=== PATIENT | female | born 1980 | race Caucasian/White ===

== ENCOUNTER → 2017-12-23 12:52 | Outpatient (CLI) | payer MEDICARE, MEDICAID, SELFPAY ==
--- NOTE | 2017-12-23 13:00 | RAD_ITS ---
STUDY: SWALLOWING STUDY REASON FOR EXAM: Female, 36 years old. Dysphagia. Anxiety. TECHNIQUE: The examination was performed with Speech Pathology in attendance. Under fluoroscopic observation, the patient ingested thin barium, thick barium, barium pudding, and barium coated cracker. FLUOROSCOPY TIME: 1:39 minutes/seconds. 1555 spot images. RADIOLOGIST INVOLVEMENT: Radiologist was present and providing direct supervision. COMPARISON: None. FINDINGS: The following was observed during swallowing of the various mixtures of barium: Thin Barium: There was no evidence of aspiration or laryngeal penetration. Barium Pudding: There was no evidence of aspiration or laryngeal penetration. Barium Coated Cracker: There was no evidence of aspiration or laryngeal penetration. RAD/Swallowing Function w/Video IMPRESSION: Normal tailored barium swallow study. No evidence of increased risk for aspiration. The swallow study findings were discussed with the patient by the speech pathologist at the conclusion of the examination. Please see speech pathology report for more information and recommendations. Electronically Signed: Haim Virgen MD at 14:26 EDT Tel [phone], Service support ,
--- NOTE | 2017-12-23 13:30 | SP.MBSS_ITS ---
PRIMARY / SECONDARY DIAGNOSIS: dysphagia (R13.10) REFERRING PHYSICIAN: Mamadou Cho NP CURRENT DIET: regular-soft textures, thin liquids DENTITION: WFL MENTAL STATUS: impaired RESPIRATORY STATUS: O2 via room air PREVIOUS MODIFIED BARIUM SWALLOW STUDY: yes Results unavailable at time of assessment; completion per caregiver report. REASON FOR REFERRAL: Patient is a 36 year old female referred for a modified barium swallow (MBS) study to objectively assess the Patients oropharyngeal swallow function under fluoroscopy secondary to concerns for potential aspiration associated with the diagnosis of cerebral palsy in addition to history of gastroesophageal reflux disease. Patient accompanied by her caregiver, reports no issues with PO intake , Patients medical / long term team raising concern for aspiration potential with consideration for prior workup. MEDICAL HISTORY: No past medical history provided in EMR; cerebral palsy, intellectual disability, sinus allergies, gastroesophageal reflux disease - per caregiver report STUDY FINDINGS: Patient participated in a Modified Barium Swallow (MBS) study on 12/23/2017. Dr. Virgen was the radiologist present for this evaluation. This study was recorded in the lateral view and images were sent to PACs for storage. The following consistencies were presented to this patient for analysis of oropharyngeal swallow function: thin liquids, pudding, and a regular textured, Abby Doone cookie. Results of the MBS are as follows: PENETRATION / ASPIRATION SCALE (RICE): 1 = does not enter airway 2 = enters airway/above vocal folds/ejected 3 = enters airway/above vocal folds/not ejected 4 = enters airway/contacts vocal folds/ejected 5 = enters airway/contacts vocal folds/not ejected 6 = enters airway/below vocal folds/ejected 7 = enters airway/below vocal folds/not ejected despite effort 8 = enters airway/below vocal folds/no effort PENETRATION / ASPIRATION SCALE (SCORE): Thin liquid - 5 mL tsp.: 1 Thin liquids via cup (single sip): 1 Thin liquids via cup (single sip): 1 Thin liquids via cup (single sip): 1 Thin liquids via straw (sequential swallows): 1 Thin liquids via straw (single sip): 1 Pudding via spoon: 1 Regular textured cookie: 1 Thin liquids via straw (single sip): 1 Thin liquids via straw (single sip): 1 Thin liquids via straw (chin tuck): 1 * multiple images distorted due to body habitus and frequent movement IMPRESSION: DIAGNOSIS: mild to moderate oropharyngeal dysphagia (R13.12) ORAL PHASE CHARACTERIZED BY: LABIAL SEAL: no labial escape TONGUE CONTROL DURING BOLUS MANIPULATION: intermittent escape to lateral buccal cavity/floor of mouth BOLUS PREPARATION / MASTICATION: timely and efficient chewing and mashing BOLUS TRANSPORT / LINGUAL MOTION: repetitive/disorganized tongue motion with delayed initiation of tongue motion lasting between 2-15 seconds prior to swallow onset ORAL RESIDUE: trace residue lining oral structures PHARYNGEAL PHASE CHARACTERIZED BY: INITIATION OF PHARYNGEAL SWALLOW: bolus head fluctuating between the pyriforms and posterior laryngeal surface of epiglottis at first hyoid excursion SOFT PALATE ELEVATION: no bolus between soft palate and pharyngeal wall LARYNGEAL ELEVATION: complete superior movement of thyroid cartilage with complete approximation of arytenoids cartilage to epiglottic petiole ANTERIOR HYOID EXCURSION: complete anterior movement EPIGLOTTIC MOVEMENT: complete epiglottic inversion LARYNGEAL VESTIBULE CLOSURE AT HEIGHT OF SWALLOW: complete laryngeal vestibule closure with no air/contrast in laryngeal vestibule PHARYNGEAL STRIPPING WAVE: pharyngeal stripping wave present / complete PHARYNGOESOPHAGEAL SEGMENT OPENING: complete distension and complete duration with no obstruction of flow TONGUE BASE RETRACTION: no contrast between tongue base and posterior pharyngeal wall PHARYNGEAL RESIDUE: trace residue within or on pharyngeal structures ESOPHAGEAL PHASE CHARACTERIZED BY: ESOPHAGEAL BOLUS CLEARANCE IN THE UPRIGHT POSITION: mild esophageal retention in lower portions of esophagus EFFECTS OF TREATMENT STRATEGIES ATTEMPTED: Chin tuck posture = ineffective Reduced bolus size = effective DIET TEXTURE RECOMMENDATIONS: Will recommend a regular-soft textured, thin liquid diet. COMPENSATORY STRATEGIES RECOMMENDED: Supervision, cut solids into quarter sized / bite sized pieces, reduced bolus volume, seated upright at 90 degrees during PO intake, remain upright for 30-60 minutes post meal (GERD precaution) INTERPRETATION OF RESULTS: Patient presents with mild to moderate oropharyngeal dysphagia (R13.12) likely associated with the diagnosis of cerebral palsy (per caregiver report). 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 Pharyngeal phase primarily marked by suboptimal bolus location upon swallow onset; otherwise within functional limits. All deficits ameliorated with bolus volume adjustments. RECOMMENDATIONS: Patient able to comprehend and express recommended intake precautions detailed above with sufficient detail to suggest high likelihood of compliance. Provided brief overview of signs and symptoms of aspiration, with recommendations for the Patient to further discuss symptoms with PCP. No further skilled speech- language services warranted at this time targeting dysphagia. ADDITIONAL COMMENTS/RECOMMENDATIONS: Results and recommendations were discussed with the Patient immediately following MBS completion, with the Patient verbalizing understanding and agreement with all recommendations and education provided. IMAGE COUNT: 1555 G-CODES: SWALLOWING [id number] Current Status: CI SWALLOWING G8997 Goal Status: CI SWALLOWING G8998 Discharge Status: CI
== END ==
PROVIDERS: Family Provider Internal Medicine; PCP Internal Medicine; Visit Provider Clinical Nurse Specialist
DX: Z00.00 Encounter for general adult medical examination without abnormal findings (principal); K21.9 Gastro-esophageal reflux disease without esophagitis; F41.9 Anxiety disorder, unspecified; F79 Unspecified intellectual disabilities; E88.81 Metabolic syndrome and other insulin resistance; E78.1 Pure hyperglyceridemia; Z23 Encounter for immunization
CPT/HCPCS: 74230; 92611; G8996; G8997; G8998

== ENCOUNTER 2019-06-03 11:25 | Emergency (ER) | payer MEDICARE, MEDICAID, SELFPAY ==
[2019-06-03 11:26] VITALS: BP 143/101; PULSE 106; RESP 17; TEMP 36.1; O2SAT 98; BMI 35.2
--- NOTE | 2019-06-03 12:12 | ED.VIS.GEN ---
History of Present Illness Chief Complaint: Rash Narrative: Patient presenting for evaluation secondary to a rash. Patient's caregiver states that over the course of the last day or so she has noticed that the patient has broken out in a rash on her legs and arms bilaterally. The patient is MRDD, is not able to provide any history, and is not able to tell me if this is itchy or painful. Caregiver states that she does not believe that this is painful. She denies any new exposures that potentially could have caused this. Review of systems otherwise negative through caregiver. Past Medical History - Allergies and Home Meds Allergies/Adverse Reactions: Allergies bee venom protein (honey bee) Allergy (Verified 06/03/19 11:25) Unknown Primary Care Physician: Maria De Jesus Waldrop MD [Primary Care Provider] - Past Medical History: - - MRDD Lives: - - Caregiver Smoking Status: Never smoker Review of Systems All systems negative except as indicated General: Denies: Fever Skin: Reports: Rash Physical Exam Vital Signs/Narrative: Vital Signs Temp Pulse Resp BP Pulse Ox 06/03/19 11:26 96.9 F L 106 H 17 143/101 H 98 General: Well nourished, Well developed, No Acute Distress Head: Normocephalic, Atraumatic Eyes: Perrl, EOMI ENT: Moist mucous membranes, - - No evidence of lip or tongue swelling, clear patent oropharynx Neck: Supple, Nontender Cardiovascular: Regular rate, Regular rhythm, No murmurs Respiratory: No distress, CTA bilaterally, Chest nontender Abdomen: Soft, Nontender, Nondistended, Normal bowel sounds Extremities: Nontender Skin: - - Evidence of an urticarial rash on the patient's arms and inner thighs bilaterally Neurological: Alert Diagnostic/Tx/Re-eval - Medical Decision Making Patient presented secondary to a rash. Physical exam seems consistent with urticaria. Patient was given a dose of Decadron in the emergency department, caregiver was recommended treatment with cortisone cream. Patient was discharged. ED Disposition - Plan for ED Patient: Disposition: Home or Assisted Living Diagnosis: Urticaria Instructions: Hives Referrals: Maria De Jesus Waldrop MD [Primary Care Provider] - 3-5 Days if not improving
[2019-06-03] MEDS: dexAMETHasone 4 MG Tablet 8 MG PO (12:19)
[2019-06-03 12:31] VITALS: RESP 18
== END 2019-06-03 12:31 | disposition home or self-care (01) ==
LOC: ED 12:28
PROVIDERS: Emergency Provider Emergency Medicine; Family Provider Internal Medicine; PCP Internal Medicine
DX: L50.9 Urticaria, unspecified (principal)
CPT/HCPCS: 99283

== ENCOUNTER 2022-09-17 15:56 | Emergency (ER) | payer MEDICARE, MEDICAID, SELFPAY ==
[2022-09-17 15:57] VITALS: BP 129/92; PULSE 123; RESP 16; TEMP 37.7; O2SAT 96; BMI 28.2
--- NOTE | 2022-09-17 16:37 | EX.ED.DYSGE1 ---
HPI <GAYATHRI Reed - Last Filed: 09/17/22 18:09> History of Present Illness Chief Complaint: Fever Narrative Narrative: Patient presents today with her caregiver due to cold-like symptoms that started yesterday. Patient has a developmental disability and is unable to provide me any information. Patient's caregiver states that yesterday she threw up one time but has been eating and drinking fine otherwise. She states that patient has also had nasal congestion, a cough, and developed a rash on her upper back. Today when patient was using the bathroom she became dizzy upon standing up prompting her caregiver to bring her in. [facility] <GAYATHRI Reed - Last Filed: 09/17/22 18:09> [facility] Medical History (Updated 09/17/22 @ 17:45 by GAYATHRI Reed) Cerebral palsy Home Medications escitalopram oxalate 20 mg tablet 20 mg PO DAILY 06/03/19 [History Last Taken Unknown] levocetirizine 5 mg tablet 5 mg PO DAILY 06/03/19 [History Last Taken Unknown] ranitidine HCl 150 mg tablet 150 mg PO DAILY 06/03/19 [History Last Taken Unknown] Allergy/AdvReac Type Severity Reaction Status Date / Time bee venom protein (honey bee) Allergy Unknown Verified 09/17/22 15:57 Social History Smoking Status: Never smoker ROS <GAYATHRI Reed - Last Filed: 09/17/22 18:09> ROS ED Review of Systems ROS Unobtainable: due to mental condition Constitutional Constitutional ED: Denies chills, fever(s) or sweats Eyes Eyes: Denies blurry vision or change in vision ENT ENT ED: Reports nasal congestion Cardiovascular Cardiovascular: Denies chest pain Respiratory/Chest Respiratory/Chest: Reports cough; Denies dyspnea, tachypnea or wheezing Gastrointestinal Gastrointestinal: Reports nausea and vomiting; Denies abdominal pain or diarrhea Genitourinary Genitourinary ED: Denies dysuria Musculoskeletal Musculoskeletal: Denies arthralgias or myalgias Integumentary Reports rash; Denies abscess or Abrasions Neurologic Neurologic: Reports weakness; Denies headache(s) Psychiatric Psychiatric: Denies anxiety or depression EXAM <GAYATHRI Reed - Last Filed: 09/17/22 18:09> Physical Exam Const Vital Signs: 09/17/22 15:57 09/17/22 16:47 09/17/22 17:28 Temperature 99.9 F H 99.9 F H Temperature Source Temporal Temporal Pulse Rate 123 H 123 H Respiratory Rate 16 16 Respiratory Effort Normal Non-Labored Blood Pressure 129/92 H 129/92 H Blood Pressure Mean 104 104 Pulse Ox 96 96 Oxygen Delivery Method Room Air Room Air 09/17/22 17:34 09/17/22 17:51 Temperature Temperature Source Pulse Rate 111 H Respiratory Rate 16 18 Respiratory Effort Blood Pressure Blood Pressure Mean Pulse Ox 97 Oxygen Delivery Method Positive well nourished and well developed General Appearance ED: well developed and NAD HEENT Reports moist mucous membranes Negative for trauma or tenderness Eyes PERRL and EOMs intact bilaterally Neck no lymphadenopathy and supple Chest Wall inspection of chest normal and palpation of chest normal Resp normal respiratory effort and clear to auscultation bilaterally Cardio regular rate, regular rhythm and no murmurs GI normal to inspection, nondistended, normoactive bowel sounds, non-tender and no masses Palpation: soft Back/Spine Cervical Spine: Negative for cervical spine tenderness Thoracic Spine / Upper Back: Negative for thoracic spinal tenderness Lumbar Spine / Lower Back: Negative for lumbar spinal tenderness Extremity normal to inspection General Extremety ED: Negative for edema General Extremity: Negative for edema Neuro CN's II-XII intact bilaterally and no sensory deficits noted Sensorium / Orientation: alert Motor Exam: strength 5/5 throughout Psych mental status grossly normal Skin no wounds and skin turgor normal Skin Narrative: Patient has scattered papules to her upper back. Lesions: No lesion noted <Dr. Gibran Wolf MD - Last Filed: 09/17/22 23:24> Physical Exam Const Vital Signs: 09/17/22 15:57 09/17/22 16:47 09/17/22 17:28 Temperature 99.9 F H 99.9 F H Temperature Source Temporal Temporal Pulse Rate 123 H 123 H Respiratory Rate 16 16 Respiratory Effort Normal Non-Labored Blood Pressure 129/92 H 129/92 H Blood Pressure Mean 104 104 Pulse Ox 96 96 Oxygen Delivery Method Room Air Room Air 09/17/22 17:34 09/17/22 17:51 Temperature Temperature Source Pulse Rate 111 H Respiratory Rate 16 18 Respiratory Effort Blood Pressure Blood Pressure Mean Pulse Ox 97 Oxygen Delivery Method MDM <GAYATHRI Reed - Last Filed: 09/17/22 18:09> MDM MDM Narrative Medical decision making narrative: Patient tested positive for flu A. She was given Zofran and 2 L of fluid. Patient is in no acute distress and is nontoxic-appearing. I am comfortable with patient discharging home. Patient and her caregiver are comfortable with plan. Caregiver stated they did not need a prescription for any nausea control going home. I educated caregiver and patient on supportive care measures. She has been given return instructions. Lab Data Attestation: I reviewed the patient's lab results. Lab results narrative: Decreased white blood cell count. Elevated monocytes. BMP unremarkable. Labs: Laboratory Results - last 24 hr 09/17/22 09/17/22 16:44 16:44 WBC 3.8 L RBC 4.38 Hgb 12.7 Hct 38.6 MCV 88.1 MCH 29.0 MCHC 32.9 RDW Std Deviation 41.6 RDW Coeff of Jamie 12.9 Plt Count 224 MPV 8.3 Immature Gran % (Auto) 0.300 Neut % (Auto) 62.9 Lymph % (Auto) 21.3 [place] % (Auto) 14.7 H Eos % (Auto) 0.3 Baso % (Auto) 0.5 Absolute Neuts (auto) 2.4 Absolute Lymphs (auto) 0.81 L Nucleated RBC % 0 Sodium 137 Potassium 3.4 L Chloride 106 Carbon Dioxide 25.0 Anion Gap 6 BUN 15 Creatinine 0.93 Estim Creat Clear Calc 75.40 Est GFR (MDRD) Af Amer 84 Est GFR (MDRD) Non-Af 70 BUN/Creatinine Ratio 16.1 Glucose 150 H Calcium 8.7 Radiography Diagnostic Testing: Clinical Impression(s) from Imaging Studies Chest X-Ray 09/17/22 16:54 IMPRESSION: Normal x-ray examination of the chest. Electronically Signed: Luis Carlos Jang MD at 17:13 EST , Chest x-ray reviewed and I agree with radiologist impressions. This has also been reviewed by attending ED physician. <Dr. Gibran Wolf MD - Last Filed: 09/17/22 23:24> [facility] Lab Data Labs: Laboratory Results - last 24 hr 09/17/22 09/17/22 16:44 16:44 WBC 3.8 L RBC 4.38 Hgb 12.7 Hct 38.6 MCV 88.1 MCH 29.0 MCHC 32.9 RDW Std Deviation 41.6 RDW Coeff of Jamie 12.9 Plt Count 224 MPV 8.3 Immature Gran % (Auto) 0.300 Neut % (Auto) 62.9 Lymph % (Auto) 21.3 [place] % (Auto) 14.7 H Eos % (Auto) 0.3 Baso % (Auto) 0.5 Absolute Neuts (auto) 2.4 Absolute Lymphs (auto) 0.81 L Nucleated RBC % 0 Sodium 137 Potassium 3.4 L Chloride 106 Carbon Dioxide 25.0 Anion Gap 6 BUN 15 Creatinine 0.93 Estim Creat Clear Calc 75.40 Est GFR (MDRD) Af Amer 84 Est GFR (MDRD) Non-Af 70 BUN/Creatinine Ratio 16.1 Glucose 150 H Calcium 8.7 Radiography Diagnostic Testing: Clinical Impression(s) from Imaging Studies Chest X-Ray 09/17/22 16:54 IMPRESSION: Normal x-ray examination of the chest. Electronically Signed: Luis Carlos Jang MD at 17:13 EST , Treatment and Re-Evaluation Narrative: Because ofCornici-patient was seen by me, there has been upper respiratory symptoms, fever. She has developmental delay clear lungs but she has upper airway congestion. She will be worked up. She is found to have influenza A, she appears well and at home believe she meets criteria for treatment. Otherwise she appears well and she can be discharged Discharge Plan Triage Chief Complaint: Fever ED Midlevel Provider: Josette Echevarria ED Provider: Gibran Wolf Dx/Rx/DC Orders Clinical Impression: Influenza A Instructions: ED Influenza (Adult) Prescriptions: No Action ranitidine HCl 150 MG tablet 150 mg PO DAILY escitalopram oxalate 20 MG tablet 20 mg PO DAILY levocetirizine 5 MG tablet 5 mg PO DAILY Primary Care Provider: Maria De Jesus Waldrop Referrals: Maria De Jesus Waldrop MD [Primary Care Provider] - 1 Week if not improving Activity Restrictions/Additional Instructions: Stay well-hydrated and alternate between Tylenol and ibuprofen for fever control. Return if any worsening of symptoms. Disposition Disposition: Home, Self Care Discharge Date/Time: 09/17/22 17:52
[2022-09-17 16:47] VITALS: BP 129/92; PULSE 123; RESP 16; TEMP 37.7; O2SAT 96
[2022-09-17] MEDS: Ondansetron 4 MG/2 ML Vial IV (16:53)
[2022-09-17] MEDS: 0.9% Normal Saline 1,000 ML 999 ML IV (16:53)
--- NOTE | 2022-09-17 16:54 | RAD_ITS ---
STUDY: X-RAY CHEST REASON FOR EXAM: Female, 41 years old. illness TECHNIQUE: Single AP portable view of the chest. COMPARISON: None. FINDINGS: The lungs are clear and expanded. There is no demonstrated pleural abnormality. Normal size heart. Normal mediastinum and kimberli. Normal visualized pulmonary arteries. Normal visualized aortic arch and descending thoracic aorta. Normal visualized thoracic spine. Normal visualized ribs, clavicles, and shoulders. There is no demonstrated abnormality of the visualized soft tissue structures of the upper abdomen. RAD/Chest 1 View (Portable) IMPRESSION: Normal x-ray examination of the chest. Electronically Signed: Luis Carlos Jang MD at 17:13 EST ,
[2022-09-17 17:00] LABS: Absolute Lymphocyte Count 0.81 X10^3/uL (0.83-4.51); Absolute Neutrophil Count 2.4 X10^3/uL (2.0-7.7); Basophil# 0.02 X10^3/uL; Basophil% 0.5 % (0-1); Eosinophil# 0.01 X10^3/uL; Eosinophils% 0.3 % (0-5); Hematocrit 38.6 % (37-47); Hemoglobin 12.7 g/dL (12.0-15.0); Lymphocyte # 0.81 X10^3/ul (0.83-4.51); Lymphocyte % 21.3 % (19-41); Mean Corp Hgb Conc 32.9 g/dL (32-36); Mean Corpuscular Volume 88.1 fL (81-99); Mean Platelet Vol. 8.3 fl (6.2-12.0); Monocyte# 0.56 X10^3/uL; Monocyte% 14.7 % (0-10); NRBC Flagged by Analyzer 0 % (0-5); Neutrophil % 62.9 % (47-70); Platelet Count 224 K/mm3 (150-450); RBC Distribution Width CV 12.9 % (11.6-14.6); RBC Distribution Width SD 41.6 fl (35.1-43.9); Red Blood Count 4.38 M/mm3 (4.2-5.4); White Blood Count 3.8 K/mm3 (4.4-11.0)
[2022-09-17 17:34] VITALS: RESP 16
[2022-09-17 17:51] VITALS: PULSE 111; RESP 18; O2SAT 97
[2022-09-17 17:55] LABS: Anion Gap 6 (5-15); BUN 15 mg/dL (7-18); BUN/Creat Ratio 16.1 RATIO (10-20); Calcium,Total 8.7 mg/dL (8.5-10.1); Chloride 106 mmol/L (98-107); Creatinine, Serum 0.93 mg/dL (0.55-1.02); EST Glomerular Filtration Rate 70 mL/min (>60); Est Glom Filt Rate - Afr Amer 84 mL/min (>60); Glucose 150 mg/dL (74-106); Potassium 3.4 mmol/L (3.5-5.1); Sodium Level 137 mmol/L (136-145)
== END 2022-09-17 17:52 | disposition home or self-care (01) ==
PROVIDERS: Physician Assistant; Emergency Provider Emergency Medicine; PCP Internal Medicine; Visit Provider Emergency Medicine
DX: J10.1 Influenza due to other identified influenza virus with other respiratory manifestations (principal)
CPT/HCPCS: 71045; 80048; 85025; 87428; 96361; 96374; 99283; J7030; A4216; J2405

== ENCOUNTER 2023-02-25 14:02 | Emergency (ER) | payer MEDICARE, MEDICAID, SELFPAY ==
[2023-02-25 14:03] VITALS: BP 164/109; PULSE 110; RESP 20; TEMP 36.4; O2SAT 99
--- NOTE | 2023-02-25 14:17 | ED.VIS.FALL ---
HPI HPI - Fall History of Present Illness Chief Complaint: Fall [facility] Medical History (Updated 02/25/23 @ 15:[address] Ariel Martins, DO) Cerebral palsy Home Medications escitalopram oxalate 20 mg tablet 20 mg PO DAILY 06/03/19 [History Last Taken Unknown] levocetirizine 5 mg tablet 5 mg PO DAILY 06/03/19 [History Last Taken Unknown] ranitidine HCl 150 mg tablet 150 mg PO DAILY 06/03/19 [History Last Taken Unknown] Allergy/AdvReac Type Severity Reaction Status Date / Time bee venom protein (honey bee) Allergy Unknown Verified 02/25/23 14:05 Social History Smoking Status: Never smoker EXAM Physical Exam Const Vital Signs: 02/25/23 14:03 02/25/23 14:44 Temperature 97.6 F L Temperature Source Temporal Pulse Rate 110 H Respiratory Rate 20 H Respiratory Effort Normal Respiratory Depth Normal Respiratory Pattern Normal Blood Pressure 164/109 H Blood Pressure Mean 127 Pulse Ox 99 Oxygen Delivery Method Room Air Room Air MDM MDM MDM Narrative Medical decision making narrative: HISTORY OF PRESENT ILLNESS: 42-year-old female here after mechanical fall. The patient is nonverbal. History is provided by the patient's [employer] caregiver. She states patient mechanical fall from standing. No reported syncope. They do note head trauma but no loss of consciousness vomiting or abnormal behavior. They state the patient does not take blood thinners. REVIEW OF SYSTEMS: Pertinent positives: Epistaxis Pertinent negatives: Loss of consciousness PHYSICAL EXAM: Nursing triage notes reviewed, Vital signs reviewed Primary Survey Airway: Intact Breathing: Bilateral breath sounds Circulation: Palpable bilateral femorals, Palpable bilateral radial, Palpable bilateral DP and Palpable bilateral PT Disability / Spine precautions GCS Score: Eye Openin Verbal Response: 5 Motor Response: 6 Secondary Survey Constitutional: Please see MDM Head: Atraumatic, Midface stable, NO jaw malocclusion, No Cephalohematoma, and No Lacerations noted Eye: Pupils equal round and reactive to light, Extraocular muscles intact and No periorbital ecchymosis or stepoff, no evidence of entrapment ENT: Oropharynx clear, no lacerations, no hemotympanum, no raccoon eyes or mccarthy sign,, dried blood noted over the left nares, no active epistaxis Cervical spine / Neck: No cervical spine bony tenderness, crepitance, or stepoff deformity Trachea midline Lungs: Clear to auscultation, No asymmetric rise and No crepitus, no flail chest Cardiac: Regular rate and rhythm and No murmurs Abdomen: Soft, Nontender and No rebound Pelvis: Pelvis stable to compression : No evidence of genital injury Back: No midline bony tenderness to thoracic/lumbar/sacral spines Neuro: At baseline, intact strength and sensation in bilateral upper and lower extremities. 2+ patellar reflexes bilaterally. Extremities: NO gross Deformities Psych: Normal affect Nursing triage notes reviewed, Vital signs reviewed MEDICAL DECISION MAKING: Chief Complaint: Fall, head trauma External records reviewed: No blood thinners, no recent ED visits MDM Narrative: The patient was initially tachycardic, tachypneic hypertensive afebrile. Primary secondary trauma surveys concerning for acute intracranial, cervical spine injury. Given the patient being nonverbal and lack of definitive communication skills I did pursue a broader work-up than usual including CT scans of the head neck and face. CT scan showed no evidence of acute traumatic injury. Tertiary exam without new injuries. The patient ambulated well in the ED. She is appropriate discharge home. She was given concussion precautions and return precautions. Factors affecting care: Cerebral palsy, nonverbal Social determinants of health: Never smoker History obtained from others: The patient's caregiver Shared decision making: I will have a discussion with the patient and or visitors regarding risk/benefits of further testing or admission. They will be made aware of of the risk/benefits inherent in this decision they will be given the opportunity to voice understanding. Consults: None Radiography Diagnostic Testing: Clinical Impression(s) from Imaging Studies Brain CT 02/25/23 14:27 IMPRESSION: Mild degree of hydrocephalus. Electronically Signed: Haim Virgen MD at 15:09 EDT , Cervical Spine CT 02/25/23 14:27 IMPRESSION: Straightening of the normal cervical lordosis. Disc space narrowing and spondylosis at the C2-C3 level. Fusion at the C3-C4 disc space level and partial fusion at the C4-C5 level. Electronically Signed: Haim Virgen MD at 15:12 EDT , Facial/Sinus 02/25/23 14:27 IMPRESSION: Nondisplaced nasal bone fracture. Electronically Signed: Haim Virgen MD at 15:10 EDT , Discharge Plan Triage Chief Complaint: Fall ED Provider: Ariel Martins Dx/Rx/DC Orders Clinical Impression: Contusion of head, Contusion of neck, Epistaxis, Fracture of nasal bone Instructions: Bruises (Contusions), ED Facial Fracture Prescriptions: No Action ranitidine HCl 150 MG tablet 150 mg PO DAILY escitalopram oxalate 20 MG tablet 20 mg PO DAILY levocetirizine 5 MG tablet 5 mg PO DAILY Primary Care Provider: Maria De Jesus Waldrop Referrals: Maria De Jesus Waldrop MD [Primary Care Provider] - Activity Restrictions/Additional Instructions: Thank you for trusting us with your care today! Please take Tylenol (2 pills, 650 mg), ibuprofen (2 pills, 400 mg) every 6 hours as needed for pain and fever control. Please return to the emergency department if your symptoms change or worsen. Specifically if you notice loss of sensation, numbness, slurred speech. Please follow with your primary care physician for further outpatient evaluation and management. Disposition Disposition: Home, Self Care Discharge Date/Time: 02/25/23 15:55
--- NOTE | 2023-02-25 14:27 | CT_ITS ---
STUDY: CT BRAIN WITHOUT CONTRAST REASON FOR EXAM: Female, 42 years old. Fall, head trauma. Bloody nose. RADIATION DOSAGE (If Supplied By Facility): CTDIvol = ( 44.99 ) mGy, DLP = ( 1524.72 ) mGycm TECHNIQUE: Transaxial CT imaging of the brain was performed without administration of intravenous contrast material. Individualized dose optimization techniques were used for this CT. COMPARISON: No relevant priors. FINDINGS: Normal soft tissue structures. Normal calvarium. Mild degree of hydrocephalus. Normal white matter tracts of the cerebral hemispheres. Normal basal ganglia and thalami. Normal brainstem. Normal cerebellum. There is no intracranial hemorrhage. There are no findings of an acute ischemic infarction. Normal visualized paranasal sinuses. CT/Brain/Head without Contrast IMPRESSION: Mild degree of hydrocephalus. Electronically Signed: Haim Virgen MD at 15:09 EDT ,
--- NOTE | 2023-02-25 14:27 | CT_ITS ---
STUDY: CT FACIAL BONES WITHOUT CONTRAST REASON FOR EXAM: Female, 42 years old. Fall, facial trauma RADIATION DOSAGE (If Supplied By Facility): CTDIvol = ( 29.38 ) mGy, DLP = ( 554.8 ) mGycm TECHNIQUE: The patient was scanned in a multi detector CT scanner. Sagittal and coronal images were reconstructed. Individualized dose optimization techniques were used for this CT. COMPARISON: None. FINDINGS: Normal soft tissue structures. Normal orbital sanabria and orbital contents. Nondisplaced nasal bone fracture. Normal facial bones. There is no demonstrated fracture. Normal visualized paranasal sinuses. CT/Sinus/Facial Bone IMPRESSION: Nondisplaced nasal bone fracture. Electronically Signed: Haim Virgen MD at 15:10 EDT ,
--- NOTE | 2023-02-25 14:27 | CT_ITS ---
STUDY: CT CERVICAL SPINE WITHOUT CONTRAST REASON FOR EXAM: Female, 42 years old. Fall, neck pain RADIATION DOSAGE (If Supplied By Facility): CTDIvol = ( 26.88 ) mGy, DLP = ( 1003.58 ) mGycm TECHNIQUE: High resolution transaxial imaging was performed without contrast material. Sagittal and coronal images were reconstructed. Individualized dose optimization techniques were used for this CT. COMPARISON: None FINDINGS: Normal craniovertebral junction. Normal anterior atlantoaxial articulation. Normal odontoid process. There is straightening of the normal cervical lordosis. Normal vertebral bodies and posterior osseous elements. C2-3: Moderate degree of disc space narrowing and spondylosis. Mild degree of right neural foraminal stenosis. C3-4: Fusion at the C3-C4 disc space level. C4-5: Partial fusion at the C4-C5 level. C5-6: Normal endplates. Normal disc height and morphology. Normal central canal and intervertebral neuroforamina. C6-7: Normal endplates. Normal disc height and morphology. Normal central canal and intervertebral neuroforamina. C7-T1: Normal endplates. Normal disc height and morphology. Normal central canal and intervertebral neuroforamina. Normal visualized soft tissue structures. CT/Spine Cervical without Contras IMPRESSION: Straightening of the normal cervical lordosis. Disc space narrowing and spondylosis at the C2-C3 level. Fusion at the C3-C4 disc space level and partial fusion at the C4-C5 level. Electronically Signed: Haim Virgen MD at 15:12 EDT ,
[2023-02-25 15:55] VITALS: BMI 32.5
== END 2023-02-25 15:55 | disposition home or self-care (01) ==
PROVIDERS: Emergency Provider Emergency Medicine; PCP Internal Medicine; Visit Provider Emergency Medicine
DX: S00.93XA Contusion of unspecified part of head, initial encounter (principal); G80.9 Cerebral palsy, unspecified; S10.93XA Contusion of unspecified part of neck, initial encounter; S02.2XXA Fracture of nasal bones, initial encounter for closed fracture; R04.0 Epistaxis; W19.XXXA Unspecified fall, initial encounter
CPT/HCPCS: 70450; 70486; 72125; 99282

== ENCOUNTER → 2023-04-23 | Outpatient (CLI) | payer MEDICARE, MEDICAID, SELFPAY ==
--- NOTE | 2023-04-23 17:17 | SP.MBSS_ITS ---
Modified Barium Swallow Patient Information Study Date: 04/23/23 Study Time: 13:00 Direct Billable Minutes: 140 Total Minutes procedure & reportin Diagnosis: Cerebral Palsy (680.9), Dysphagia (R13.10). Referring Physician: Gabriella Rodriguez NP Reason for Referral: Objectively assess swallow function, risk for aspiration and to determine recommendations for LRD and compensatory strategies to improve safety of swallow.. Medical History: Patient is a 42yo F w/ relevant PMH re: cerebral palsy, intellectual disability, GERD here for modified barium swallow study. Patient is non-verbal and lives in a longterm. Caregiver present for study. Caregiver reports patient had several of her front teeth removed and noticed increased difficulty eating meals. She is currently on what was described as a soft and bite size diet d/t having several teeth removed. Caregiver reports pocketing of the food. Patient had modified barium swallow study done in December of 2017 w/ recommendations for regular-soft textured food and thin liquid diet w/ the following compensatory strategies re: supervision w/ PO intake, cut solids into quarter sized / bite size pieces, reduced bolus volume, seated upright at 90 degrees, remain upright for 30-60 minutes post meal (GERD PRECAUTIONS). Current Diet Ordered: Soft and Bite Size / Thin Liquids Dentition: Missing Teeth Mental Status: Impaired Respiratory Status: Oxygenating on Room Air Penetration-Aspiration Scale Penetration-Aspiration Scale: OBJECTIVE ASSESSMENT OF SWALLOW FUNCTION (QUANTITATIVE ? PER TRIAL): PENETRATION / ASPIRATION SCALE (RICE): 1 = does not enter airway 2 = enters airway/above vocal folds/ejected 3 = enters airway/above vocal folds/not ejected 4 = enters airway/contacts vocal folds/ejected 5 = enters airway/contacts vocal folds/not ejected 6 = enters airway/below vocal folds/ejected 7 = enters airway/below vocal folds/not ejected despite effort 8 = enters airway/below vocal folds/no effort VIDEOFLOROSCOPIC SCALE SCORE (RICE): Grade I = aspiration of material that has penetrated into the laryngeal vestibule, intact cough reflex Grade II = aspiration < 10 % of the bolus, intact cough reflex Grade III = aspiration of < 10 % of the bolus, reduced cough reflex or aspiration of > 10 % of the bolus, intact cough reflex Grade IV = aspiration of > 10 % of the bolus, reduced cough reflex Penetration-Aspiration Scale Score Thin Liquid via teaspoon: Result: 1= does not enter airway Thin Liquid via teaspoon Trial 2: Result: 1= does not enter airway Thin Liquid via sequential sips from cup: Result: 1= does not enter airway Pudding: Result: 1= does not enter airway Pears: Result: 1= does not enter airway Thin Liquid via sequential sips from cup Trial 2: Result: 1= does not enter airway Oral Phase Labial Seal: No Labial Escape Tongue Control During Bolus Hold: Escape to lateral buccal cavity/floor of mouth Bolus Preparation/Mastication: Disorganized chewing/mashing with solid pieces of bolus unchewed Bolus Transport/Lingual Motion: Repetitive/disorganized tongue motion Oral Residue: Trace residue lining oral structures Pharyngeal Phase Initiation of Pharyngeal Swallow: Bolus head at posterior laryngeal surgace of epiglottis Soft Palate Elevation: No bolus between soft palate and pharyngeal wall Laryngeal Elevation: Comp. Superior move thyroid cart w/comp. apprx arytenoid cart-epig pet Anterior Hyoid Excursion: Complete anterior movement Epiglottic Movement: Complete inversion Laryngeal Vestibule Closure at Height of Swallow: Complete; no air/contrast in laryngeal vestibule Pharyngeal Stripping Wave: Present - complete Pharyngoesophageal Segment Opening: Complete distension and complete duration; no obstruction of flow Tongue Base Retraction: No contrast between tongue base and posterior pharyngeal wall Pharyngeal Residue: Trace residue within or on pharyngeal structures Diagnosis/Impression Diagnosis: mild to moderate oropharyngeal dysphagia R13.12 Impression: Pt. presents w/ mild to moderate oropharyngeal dysphagia likely secondary to cerebral palsy dx. Oral phase primarily marked by... 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 - suboptimal bolus location upon swallow onset - no penetration/aspiration observed, however unable to definitely rule out d/t pt.'s body habitus Recommendations Diet: Mechanical Soft Textures and Thin Liquids Comment: Provided caregiver w/ materials for preparation of recommended diet re: IDDSI LEVEL 5 MINCED AND MOIST Compensatory Strategies: Small Bites, Small Sips, Sitting upright and Remain sitting upright for 30 minutes after PO intake Supervision: 1:1 Close Supervision Recommend Repeat Modified Barium Swallow: No Need for Skilled Speech Therapy Services: No Education Completed: 1. Described result of evaluation. and 4. Family/caregivers understand evaluation & agree w/ goals & tx plan. Status Active ST Patient: Active Contact Information [facility] Speech Therapy:: Kathia Norris M.A. CCC-PLANT CARE WORKER Speech-Language Pathologist [facility] [address] [place] [address] [email or web address] [phone]
== END | disposition home or self-care (01) ==
LOC: RAD 12:52
PROVIDERS: PCP Internal Medicine; Referring Provider Internal Medicine; Visit Provider Internal Medicine
DX: G80.9 Cerebral palsy, unspecified (principal); K08.9 Disorder of teeth and supporting structures, unspecified
CPT/HCPCS: 74230; 92611

== ENCOUNTER 2023-05-22 17:18 | Outpatient (RCR) | payer MEDICARE, MEDICAID, SELFPAY ==
--- NOTE | 2023-05-23 08:18 | HP.PTEVAL ---
Patient's Visit Information Visit Information Visit Information: RATNA RAY is a 42 year old F referred to Physical Therapy by Dr. Maria De Jesus Waldrop MD with a diagnosis of CP with need for gait belt training. Date of Evaluation: 05/22/23 Physical Therapist: Geovani Esteban DPT Visit Plan Frequency: 1x/Week Duration: 1 Week Plan: Tracey and her caregiver were trained in proper use of gait belt this date with walking and on stairs. Tracey is a bit impulsive and needs cues to focus on her gait. With use of gait belt she is much safer. Patient does not need and would have difficulty using an AD with her gait. Caregvier and patient both trained in gait belt safety and use. They were both trainined and will be DC from PT at this point in time. Subjective Subjective: Pt is here today for her initial evaluation with diagnosis of subsequent falls and infantile CP. Pt. [place] a jail and has had a few falls with in the last year with the last one being while she was at [facility]. Pt. was returning from rolling her ball and slipped and fell. She is non verbal but her lawn care professional is here. She reports that Tracey did end up braking her nose during this fall. She arrives wearing a gait belt with lawn care professional assisting. wire winding machine tender reports no major decline in her recent ability, but has been using the gait belt on her since for safety. No further falls have occurred. rn rehab reports patient tends to be fast with her walking and is usually looking around at other things while she was walking. they were hoping for instruction on proper gait belt usage for safety. Objective Objective: POSTURE: flexed posture in stance, wide KATRIN. PALPATION: No issues with palaption. NEURO: normal sensation, decreased ability to raise on heels and toes. ROM: Pt. has general tightness with her HS and mod loss throughout her lumbar spine. Pt. has decreased B knee flexion and lacking end ranged extension as well. MMT: PT. has 5/5 strength throughout BLEs, except 4/5 throughout her hips. GAIT: Pt. ambulates without AD. She is pretty impulsive with her movements but does follow directions. She has gait belt in place. She does have some lateral deviation, but is able to self correct with CGA with gait belt. No LOB Noted. STAIRS: Pt. was able to complete with 2 HR with CGA. We talked extensively on the use of a gait belt. How to don/doff, where to stand, how to aid in balance and use of ground and stairs. Her caregiver was able to complete and demonstrate back. Balance/Special Test Scores Lower Extremity Functional Score: 80 TUG Test Time Seconds: 16.1 30 Second Chair Rise Test Seconds: 14 Goals Goal 1:: STG: caregiver to be trained in proper use of gait belt and how to assist patient with gait and balance. Goal Time Frame: 1 Week Rehabilitation Potential Physical Therapy Diagnosis: Pt. has signs and symptoms consistent with some imbalance and need for external assistance with gait due to her CP. Pt. tends to be impulsive with her movements and gait and the use of a gait belt is warranted. Caregiver able to demonstrate back to PT this date with proper use. Rehabilitation Potential: Excellent Anticipated Interventions Patient/Client Instruction: Educate patient on: Condition, Plan of Care, Risk Factors and Benefits of Fitness Program For the Purpose of:: To improve self management, To prevent re-injury, To improve ability to perform tasks related to life management and To improve tolerance to ADL's Therapeutic Exercise to Include: Body mechanics, Postural training and Gait and locomotor training For the Purpose of:: To improve gait and locomotor functions, To improve health of tissue and To improve safety with gait Text: Thank you for the opportunity to evaluate your patient. For Medicare and Medicare HMO plans, please review the plan of care and approve it. It will need to be FAXED BACK to us at [phone] for Medicare purposes. For Medicare only, by signing this I certify the plan of care. Please let me know if there are questions or concerns regarding this plan of care. Physician Signature: Date:
== END 2023-05-22 19:00 | disposition home or self-care (01) ==
LOC: PT 17:18
PROVIDERS: PCP Internal Medicine; Referring Provider Internal Medicine; Visit Provider Internal Medicine
DX: R26.9 Unspecified abnormalities of gait and mobility (principal); F79 Unspecified intellectual disabilities; G80.9 Cerebral palsy, unspecified
CPT/HCPCS: 97161

== ENCOUNTER 2025-07-18 18:30 | Emergency (ER) | payer OTHER, MEDICARE, MEDICAID, SELFPAY ==
[2025-07-18 18:49] VITALS: BP 157/120; PULSE 108; RESP 16; TEMP 37.1; O2SAT 98; BMI 28.5
--- OUTSIDE RECORDS SUMMARY | 2025-07-18 19:56 | XMS RPT_ITS | CCD ---
Author Organization [facility] Care Team Providers Care Music Therapist Name Role Phone Benny Zheng Unavailable Unavailable PROVIDER, UNKNOWN Attending Unavailable PROVIDER, UNKNOWN Admitting Unavailable Romy Greer MD Primary Care Provider Romy Greer MD Primary Care Provider Romy Greer MD Primary Care Provider LAURIE CHAVEZ Attending Unavailable LAURIE CHAVEZ Admitting Unavailable Yvonne EQUIPMENT WORKER, Marycruz Referring Unavailable Yvonne EQUIPMENT WORKER, Marycruz Attending Unavailable Talampas, Romy D Primary Care Unavailable Talampas, Romy D Referring Unavailable Talampas, Romy D Attending Unavailable Talampas, Romy D Primary Care Unavailable Ariel Martins Attending Unavailable Talampas, Romy D Primary Care Unavailable Romy Greer MD Primary Care Provider Unavailable Primary Care Provider Unavailabl e Cho MANAGER OF DISTRIBUTION.LINE REPAIRER TOWER, Yoselin Unavailable Yvonne MANAGER OF DISTRIBUTION.ZONING ENGINEER, Marycruz Unavailable Yvonne MANAGER OF DISTRIBUTION.ZONING ENGINEER, Marycruz Unavailable Yvonne MANAGER OF DISTRIBUTION.ZONING ENGINEER, Marycruz Unavailable Cho MANAGER OF DISTRIBUTION.LINE REPAIRER TOWER, Yoselin Unavailable Cho MANAGER OF DISTRIBUTION.LINE REPAIRER TOWER, Yoselin Unavailable ZOEY ROMY D Referring Unavailable TALAMPAS, ROMY D Primary Care Unavailable MIKKI VELAZQUEZ Attending Unavailable TALAMPAS, ROMY D Primary Care Unavailable TALAMPAS, ROMY D Primary Care Unavailable VELAZQUEZ, MIKKI Referring Unavailable YVONNE, MARYCRUZ Attending Unavailable TALAMPAS, ROMY D Primary Care Unavailable Allergies Allergy Classification Reported Allergen(s) Allergy Type Date of Onset Reaction(s) Facility (3 sources) bee venom; Translations: [BEE VENOM] Propensity to adverse reactions to drug (disorder) 3 Anaphylaxis [facility] (16 sources) bee stings [Other] Propensity to adverse reactions 5 [facility] Work Phone: (16 sources) bee venom protein (honey bee); Translations: [BEE VENOM PROTEIN (HONEY BEE)] Allergy to substance 3 Other: See Comments [facility] (1 source) bee venom protein (honey bee) Drug allergy (disorder) 3 [facility] Rep[facility] Medications Current Medications Medication Drug Class(es) Dates Sig (Normalized) Sig (Original) acetaminophen 500 mg oral tablet (20 sources) Start: 12-15-2024 take 2 tablets by mouth every four hours as needed acetaminophen (TYLENOL EXTRA STRENGTH) 500 mg tablet Take 2 tablets by mouth every 4 hours as needed for pain. Do not exceed 4000mg in 24 hours 12/15/2024 Active Start: 10-29-2012 End: 12-15-2024 take 1 tablet by mouth every four hours as needed acetaminophen (TYLENOL EXTRA STRENGTH) 500 mg tablet Take 1 tablet by mouth every 4 hours as needed for Pain. 10/29/2012 12/15/2024 Discontinued (Adjust Sig - Block E-Cancel) acetaminophen (T ylenol) 325 MG capsule Take by mouth every 6 hours as needed for mild pain (1-3). 0 Active Comment on above: Take 1 tablet by mariann th every 4 hours as needed for Pain. acetaminophen 325 mg / HYDROcodone bitartrate 5 mg oral tablet (2 sources) Opioid Agonist Start: End: take 1 tablet by mouth every six hours as needed for pain HYDROcodone-acetamino phen ([place]) 5-325 MG tablet Take 1 tablet by mouth every 6 hours as needed for severe pain (7-10) for up to 5 days. 20 tablet 0 11/09/2022 11/14/2022 Active amoxicillin 875 mg oral tablet (2 sources) Penicillin-class Antibacterial Start: End: take 1 tablet by mouth twice daily amoxicillin (AMOXIL) 875 mg tablet Indications: Acute non-recurrent maxillary sinusitis Take 1 tablet by mouth twice daily for 10 days. 20 tablet 0 01/23/2023 02/02/2023 Active Comment on above: Take 1 tablet by [facility] twice daily for 10 days. cetirizine hydrochloride 5 mg oral tablet (2 sources) Histamine-1 Receptor Antagonist take 2 tablets by mouth once daily cetirizine (ZyrTEC) 5 MG tablet Take 10 mg by mouth Nightly. 0 Active cyclopentolate hydrochloride 10 mg/ml ophthalmic solution (1 source) Start: 023 End: cyclopentolate 1 % 1 Drop (CYCLOGYL) Diaper,Brief, Adult,Disposable (ADULT BRIEF - EXTRA LARGE) (20 sources) Start: Diaper,Brief, Adult,Disposable (ADULT BRIEF - EXTRA LARGE) 1 Units as needed. 96 Each 02/01/2022 Active Start: 02-01-2022 End: 02-01-2022 Diaper,Brief, Adult,Disposab le (ADULT BRIEF - EXTRA LARGE) 1 Units as needed. 96 Each 02/01/2022 02/01/2022 Discontinued Comment on above: 1 Units as needed. Diaper,Brief, Adult,Disposable (BRIEFS EXTRA LARGE) (20 sources) Start: Diaper,Brief, Adult,Disposable (BRIEFS EXTRA LARGE) 1 Units as needed. 96 Each 02/21/2022 Active Comment on above: 1 Units as needed. [id number] 0.3 ml EPINEPHrine 1 mg/ml auto-injector (20 sources) alpha-Adrenergic Agonist, beta-Adrenergic Agonist, Catecholamine Start: 021 End: EPINEPHrine (EPIPEN) 0.3 mg/0.3 mL auto-injector Indications: Bee sting allergy use as directed incase of bee sting, Inject 0.3 ml Intramuscularly 2 Each 1 06/16/2024 Active Comment on above: use as directed inca se of bee sting, Inject 0.3 ml Intramuscularly escitalopram 10 mg oral tablet (20 sources) Serotonin Reuptake Inhibitor Start: End: take 1 tablet by mouth once daily escitalopram oxalate (LEXAPRO) 10 mg tablet Take 1 tablet by mouth once daily. 30 tablet 06/16/2024 Active Start: 12-23-2023 take 1 tablet by mariann th once daily escitalopram oxalate (LEXAPRO) 20 mg tablet Take 1 tablet by mouth once daily. 30 tablet 11 12/23/2023 Active Start: 09-11-2021 End: 12-23-2023 take 1 tablet by mouth once daily escitalopram oxalate (LEXAPRO) 10 mg tablet Take 1 tablet by mouth once daily. 30 tablet 5 07/15/2023 12/23/2023 Discontinued Start: 06-03-2019 take 20 mg by mouth once daily Escitalopram Oxalate Active 20 MG PO DAILY June 03, 2019 12:00am Comment on above: Take 1 tablet by mariann th once daily. famotidine 40 mg oral tablet (20 sources) Histamine-2 Receptor Antagonist Start: 11-04-2023 End: 06-16-2024 take 1 tablet by mouth once daily at bedtime famotidine (PEPCID) 40 mg tablet Take 1 tablet by mouth daily at bedtime. Replaces ranitidine 30 tablet 11 06/16/2024 Active Start: 12-01-2021 End: 11-07-2022 take 1 tablet by mouth once daily at bedtime famotidine (PEPCID) 40 mg tablet Take 1 tablet by mouth daily at bedtime. Replaces ranitidine 30 tablet 11 11/07/2022 Active Comment on above: Take 1 tablet by mairann th daily at bedtime. Replaces ranitidine ibuprofen 600 mg oral tablet (20 sources) Nonsteroidal Anti-inflammatory Drug Start: 11-09-2022 End: 11-19-2022 take 1 tablet by mouth every six hours ibuprofen 600 MG tablet Take 1 tablet (600 mg) by mouth in the morning and 1 tablet (600 mg) at noon and 1 tablet (600 mg) in the evening and 1 tablet (600 mg) before bedtime. Do all this for 10 days. 40 tablet 0 11/09/2022 11/19/2022 Active take 1 tablet by mariann th every six hours as needed ibuprofen (MOTRIN) 400 mg tablet Indications: Dental infection Take 400 mg by mouth every 6 hours as needed. Active Comment on above: Take 400 mg by mouth every 6 hours as needed. levocetirizine dihydrochloride 5 mg oral tablet (20 sources) Histamine-1 Receptor Antagonist Start: 019 End: 01-20-2 025 take 1 tablet by mouth once daily levocetirizine 5 mg tablet TAKE 1 TABLET BY MOUTH ONCE DAILY. FOR ALLERGY SYMPTOMS 28 tablet 11 11/02/2024 Active Comment on above: TAKE 1 TABLET BY MARIANN ONCE DAILY. FOR ALLERGY SYMPTOMS mupirocin 0.02 mg/mg topical ointment (20 sources) RNA Synthetase Inhibitor Antibacterial Start: 024 mupirocin (BACTROBAN) 2 % ointment Indications: Rash and nonspecific skin eruption Apply 1 application to affected area two times a day. until rash clears and then discontinue. for facial rash 15 g 1 12/18/2023 Active Start: 04-28-2021 End: 12-05-2023 mupirocin (BACTROBAN) 2 % oi ntment Indications: Rash and nonspecific skin eruption Apply 1 application to affected area twice daily. until rash clears and then discontinue. for facial rash 15 g 1 04/28/2021 12/05/2023 Discontinued Comment on above: Apply 1 application to affected area twice daily. until rash clears and then discontinue. for facial rash Apply 1 application to affected area two times a day. until rash clears and then discontinue. for facial rash pseudoephedrine hydrochloride 30 mg oral tablet (20 sources) alpha-Adrenergic Agonist Start: 015 take 1 tablet by mouth every four hours as needed pseudoephedrine (SUDAFED) 30 mg tablet Indications: Acute sinusitis, recurrence not specified, unspecified location Take 1 tablet by mouth every 4 hours as needed for Cold/Allergy Symptoms. 30 tablet 0 05/12/2015 Active Comment on above: Take 1 tablet by [facility] every 4 hours as needed for Cold/Allergy Symptoms. raNITIdine 150 mg oral tablet (2 sources) Histamine-2 Receptor Antagonist Start: 019 take 150 mg by mouth once daily Ranitidine Hcl Active 150 MG PO DAILY June 03, 2019 12:00am Completed/Discontinued Medications Medication Drug Class(es) Dates Sig (Normalized) Sig (Original) ALPRAZolam 0.5 mg oral tablet (2 sources) Benzodiazepine Start: 11-09-2022 End: 11-09-2022 ALPRAZolam (Xanax) tablet 0.5 mg calcium chloride 0.0014 meq/ml / potassium chloride 0.004 meq/ml / sodium chloride 0.103 meq/ml / sodium lactate 0.028 meq/ml injectable solution (2 sources) Start: 11-09-2022 End: 11-09-2022 lactated Ringer's (LR) infusion 1 ml diphenhydrAMINE hydrochloride 50 mg/ml cartridge (2 sources) Histamine-1 Receptor Antagonist Start: 11-09-2022 End: 11-09-2022 diphenhydrAMINE (BENADryl) injection 12.5 mg fluconazole 150 mg oral tablet (9 sources) Azole Antifungal Start: 01-23-2023 End: 12-05-2023 fluconazole (DIFLUCAN) 150 mg tablet Indications: Antibiotic-induced yeast infection Take one tablet by mouth; wait 72 hours and take the second--as directed for yeast infection after antibiotic/ 2 tablet 0 01/23/2023 12/05/2023 Discontinued Comment on above: Take one tablet by m outh; wait 72 hours and take the second--as directed for yeast infection after antibiotic/ 1 ml HYDROmorphone hydrochloride 1 mg/ml cartridge (4 sources) Opioid Agonist Start: 11-09-2022 End: 11-09-2022 HYDROmorphone (Dilaudid) injection 0.5 mg Start: 11-09-2022 End: 11-09-2022 HYDROmorphone (Dilaudid) inj ection 0.25 mg labetalol (Normodyne,Trandate) injection 5 mg (2 sources) Start: 11-09-2022 End: 11-09-2022 labetalol (Normodyne,Trandate) injection 5 mg 1 ml LORazepam 2 mg/ml injection (2 sources) Benzodiazepine Start: 11-09-2022 End: 11-09-2022 LORazepam (Ativan) injection 0.5 mg 1 ml meperidine hydrochloride 25 mg/ml cartridge (2 sources) Opioid Agonist Start: 11-09-2022 End: 11-09-2022 meperidine (Demerol) injection 12.5 mg mometasone furoate 0.05 mg/actuat metered dose nasal spray (15 sources) Corticosteroid Start: 01-23-2023 End: 06-16-2024 take 2 spray(s) by mouth once daily as needed, then take 2 spray(s) by mouth once daily as needed mometasone (NASONEX) 50 mcg/actuation nasal spray Use 2 Sprays in the nose once daily. Rinse mouth after use. After treating for acute allergies or infection, may use 2 sprays daily as needed 17 g 3 01/23/2023 06/16/2024 Discontinued Comment on above: Use 2 Sprays in the nose once daily. Rinse mouth after use. After treating for acute allergies or infection, may use 2 sprays daily as needed nystatin 100 unt/mg topical powder (15 sources) Polyene Antifungal Start: 03-05-2023 End: 12-15-2024 nystatin (MYCOSTATIN) powder Indications: Yeast dermatitis Apply 1 application to affected area three times daily as needed. 60 g 2 03/05/2023 12/15/2024 Discontinued Comment on above: Apply 1 application to affected area three times daily as needed. 2 ml ondansetron 2 mg/ml injection (2 sources) Serotonin-3 Receptor Antagonist Start: 11-09-2022 End: 11-09-2022 ondansetron (Zofran) injection 4 mg oxyCODONE (2 sources) Opioid Agonist Start: 11-09-2022 End: 11-09-2022 oxyCODONE (Roxicodone) immediate release tablet 5 mg 5 ml sodium chloride 9 mg/ml injection (20 sources) Start: 11-09-2022 End: 11-09-2022 sodium chloride 0.9 % infusion Start: 11-09-2022 End: 11-09-2022 sodium chloride 0.9% (NS) fl ush 3 mL Start: 10-05-2018 End: 06-16-2024 sodium chloride (AYR, OCEAN) 0.65 % nasal spray Indications: Nasal congestion Use 1 [place] in the nose as needed. 1 Bottle 10/05/2018 06/16/2024 Discontinued Comment on above: Use 1 [place] in the n ose as needed. triamcinolone acetonide 1 mg/ml topical cream (17 sources) Corticosteroid Start: 06-05-2019 End: 12-05-2023 triamcinolone acetonide (KENALOG) 0.1 % cream Indications: Rash and nonspecific skin eruption Apply 1 application to affected area three times daily. Apply sparingly to area for rash/itching. 80 g 1 06/05/2019 12/05/2023 Discontinued Comment on above: Apply 1 application to affected area three times daily. Apply sparingly to area for rash/itching. Problems Active Problems Problem Classification Problem Date Documented Da te Episodic/Chronic Allergic reactions (4 sources) Allergy to bee venom; Translations: [Bee allergy status] Episodic Anxiety disorders (20 sources) Anxiety; Translations: [Anxiety disorder, unspecified] Onset: 6 11-29-2015 Chronic Developmental disorders (20 sources) Intellectual disability; Translations: [Unspecified intellectual disabilities] 01-14-2019 Chronic Diabetes mellitus without complication (2 sources) Impaired fasting glycemia; Translations: [Impaired fasting glucose] 12-18-2023 Episodic Disorders of lipid metabolism (5 sources) Dyslipidemia; Translations: [Hyperlipidemia, unspecified] Onset: 5 06-11-2023 Chronic E Codes: Fall (1 source) Fall; Translations: [Unspecified fall, subsequent encounter] Episodic Esophageal disorders (20 sources) Gastroesophageal reflux disease; Translations: [Gastro-esophageal reflux disease without esophagitis] Onset: 7 12-10-2006 Chronic Immunizations and screening for infectious disease (3 sources) Vaccination needed; Translations: [Encounter for immunization] Episodic Influenza (2 sources) Influenza due to Influenza A virus; Translations: [Influenza due to other identified influenza virus with other respiratory manifestations] 09-25-2022 Episodic Mycoses (1 source) Opportunistic mycosis; Translations: [Candidiasis, unspecified] Episodic Nonmalignant breast conditions (2 sources) Heterogeneously dense breast composition; Translations: [Heterogeneously dense tissue of both breasts on mammography] 12-05-2023 Episodic Other aftercare (1 source) Long-term current use of drug therapy; Translations: [Other fpc (current) drug therapy] 06-16-2024 Episodic Other aftercare (1 source) Other fpc (current) drug therapy; Translations: [Encounter for long-term current use of medication] Onset: 5 Episodic Other eye disorders (17 sources) Bilateral optic atrophy of eyes; 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, bilateral] Onset: 3 05-13-2023 Chronic Other eye disorders (15 sources) Nystagmus; Translations: [Unspecified nystagmus] Onset: 3 05-13-2023 Chronic Other eye disorders (3 sources) Nystagmus present; Translations: [Unspecified nystagmus] Onset: 3 05-13-2023 Chronic Other gastrointestinal disorders (1 source) Swallowing problem; Translations: [Dysphagia, unspecified] 06-11-2023 Episodic Other gastrointestinal disorders (2 sources) Swallowing finding; Translations: [Dysphagia, unspecified] 12-18-2023 Episodic Other nervous system disorders (4 sources) Abnormal gait; Translations: [Unspecified abnormalities of gait and mobility] Episodic Other nutritional; endocrine; and metabolic disorders (20 sources) Metabolic syndrome X; Translations: [Metabolic syndrome] Onset: 9 07-05-2009 Chronic Other skin disorders (1 source) Eruption; Translations: [Rash and other nonspecific skin eruption] 12-18-2023 Episodic Other upper respiratory disease (20 sources) Allergic rhinitis; Translations: [Allergic rhinitis, unspecified] 11-29-2015 Chronic Other upper respiratory disease (2 sources) Bleeding from nose; Translations: [Epistaxis] 02-25-2023 Episodic Other upper respiratory infections (1 source) Acute maxillary sinusitis; Translations: [Acute maxillary sinusitis, unspecified] Episodic Paralysis (20 sources) Cerebral palsy; Translations: [Cerebral palsy, unspecified] Onset: 3 08-30-2015 Chronic Residual codes; unclassified (2 sources) Pain, unspecified; Translations: [Pain, unspecified] Onset: 3 Episodic Skull and face fractures (2 sources) Fractured nasal bones; Translations: [Fracture of nasal bones, initial encounter for closed fracture] 02-25-2023 Episodic Superficial injury; contusion (4 sources) Contusion of head; Translations: [Contusion of unspecified part of head, initial encounter] 02-25-2023 Episodic Unclassified (1 source) Unknown / UNK(Unknown) Onset: 9 Unclassified (1 source) Dysmetabolic syndrome; Translations: [Dysmetabolic syndrome] Onset: 9 Viral infection (1 source) Viral disease; Translations: [Viral infection, unspecified] Episodic Past or Other Problems Problem Classification Problem Date Documented Da te Episodic/Chronic Blindness and vision defects (20 sources) Bilateral myopia of eyes; Translations: [Myopia, bilateral] Onset: 05-13-2023 05-13-2023 Episodic Other screening for suspected conditions (not mental disorders or infectious disease) (13 sources) Patient encounter status; Translations: [Encounter for screening mammogram for malignant neoplasm of breast] Onset: 01-27-2025 01-17-2023 Episodic Other upper respiratory disease (1 source) Epistaxis; Translations: [Epistaxis] Onset: 03-01-2023 Episodic Residual codes; unclassified (2 sources) Pain; Translations: [Pain, unspecified] Episodic Unclassified (1 source) DENTAL CARIES/PERIODONTI TIS Onset: 12-18-2018 Unclassified (3 sources) Patient encounter status 12-29-2024 Results Test Name Value Interpretation Reference Range Facility CBC panel Auto (Bld)on 06-22 Erythrocyte distribution width (RBC) [Ratio] 12.9 % Normal 11.5-15.0 [facility] Comment on above: Order Comment: Antonieta flannery Type: BLOOD SPECIMEN Ordering Facility: [facility] Address: [address] [place] [address] Performed By: #### 5 8410-2 #### [facility] CLIA [id number] [address] [place] [address] [place] Hematocrit (Bld) [Volume fraction] 41.6 % Normal 36.0-46.0 [facility] Comment on above: Order Comment: Antonieta flannery Type: BLOOD SPECIMEN Ordering Facility: [facility] Address: [address] [place] [address] Performed By: #### 5 8410-2 #### [facility] CLIA [id number] [address] [place] [address] [place] Hemoglobin (Bld) [Mass/Vol] 13.5 g/dL Normal 11.5-15.5 [facility] Comment on above: Order Comment: Antonieta flannery Type: BLOOD SPECIMEN Ordering Facility: [facility] Address: [address] [place] [address] Performed By: #### 5 8410-2 #### [facility] CLIA [id number] [address] [id number] [address] [place] MCH (RBC) [Entitic mass] 29.2 pg Normal 26.0-34.0 [facility] Comment on above: Order Comment: Speci men Type: BLOOD SPECIMEN Ordering Facility: [facility] Address: [address] [place] [address] Performed By: #### 5 8410-2 #### [facility] CLIA [id number] [address] [place] [address] [place] MCHC (RBC) [Mass/Vol] 32.5 g/dL Normal 30.5-36.0 [facility] Comment on above: Order Comment: Speci men Type: BLOOD SPECIMEN Ordering Facility: [facility] Address: [address] [place] [address] Performed By: #### 5 8410-2 #### [facility] CLIA [id number] [address] [place] [address] [place] MCV (RBC) [Entitic vol] 90.0 fL Normal 80.0-100.0 [facility] Comment on above: Order Comment: Speci men Type: BLOOD SPECIMEN Ordering Facility: [facility] Address: [address] [place] [address] Performed By: #### 5 8410-2 #### [facility] CLIA [id number] [address] [place] [address] [place] Nucleated RBC (Bld) [#/Vol] 10*3/uL Normal <0.01 [facility] Comment on above: Order Comment: Speci men Type: BLOOD SPECIMEN Ordering Facility: [facility] Address: [address] [place] [address] Performed By: #### 5 8410-2 #### [facility] CLIA [id number] [address] [place] [address] [place] Platelet mean volume (Bld) [Entitic vol] 9.0 fL Normal 9.0-12.7 [facility] Comment on above: Order Comment: Speci men Type: BLOOD SPECIMEN Ordering Facility: [facility] Address: [address] [place] [address] Performed By: #### 5 8410-2 #### [facility] CLIA [id number] [address] [place] [address] [place] Platelets (Bld) [#/Vol] 274 10*3/uL Normal 150-400 [facility] Comment on above: Order Comment: Speci men Type: BLOOD SPECIMEN Ordering Facility: [facility] Address: [address] [place] [address] Performed By: #### 5 8410-2 #### [facility] CLIA [id number] [address] [place] [address] [place] RBC (Bld) [#/Vol] 4.62 10*6/uL Normal 3.90-5.20 [facility] Comment on above: Order Comment: Speci men Type: BLOOD SPECIMEN Ordering Facility: [facility] Address: [address] [place] [address] Performed By: #### 5 8410-2 #### [facility] CLIA [id number] [address] [place] [address] [place] WBC (Bld) [#/Vol] 5.01 10*3/uL Normal 3.70-11.00 [facility] Comment on above: Order Comment: Speci men Type: BLOOD SPECIMEN Ordering Facility: [facility] Address: [address] [place] [address] Performed By: #### 5 8410-2 #### [facility] CLIA [id number] [address] [place] [address] [place] Comprehensive metabolic 2000 panelon 06-22-2025 Albumin [Mass/Vol] 4.3 g/dL Normal 3.9-4.9 [facility] Comment on above: Order Comment: Speci men Type: BLOOD SPECIMEN Ordering Facility: [facility] Address: [address] [place] [address] Performed By: #### 2 4331-1, 22312-8 #### [facility] CLIA [id number] [address] [place], [place] [id number] [place] ALP [Catalytic activity/Vol] 68 U/L Normal 34-123 [facility] Comment on above: Order Comment: Speci men Type: BLOOD SPECIMEN Ordering Facility: [facility] Address: [address] [place] [address] Performed By: #### 2 4331-1, #### [facility] CLIA [id number] [address] [place], [place] [id number] [place] ALT [Catalytic activity/Vol] 13 U/L Normal 7-38 [facility] Comment on above: Order Comment: Speci men Type: BLOOD SPECIMEN Ordering Facility: [facility] Address: [address] [place] [address] Performed By: #### 2 4331-1, #### [facility] CLIA [id number] [address] [place], [place] [id number] [place] Anion gap [Moles/Vol] 13 mmol/L Normal 8-15 [facility] Comment on above: Order Comment: Speci men Type: BLOOD SPECIMEN Ordering Facility: [facility] Address: [address] [place] [address] Performed By: #### 2 4331-1, #### [facility] CLIA [id number] [address] [place], [place] [id number] [place] AST [Catalytic activity/Vol] 17 U/L Normal 13-35 [facility] Comment on above: Order Comment: Speci men Type: BLOOD SPECIMEN Ordering Facility: [facility] Address: [address] [place], [place] [id number] Performed By: #### 2 4331-1, #### [facility] CLIA [id number] [address] [place], [place] [id number] [place] Bilirubin [Mass/Vol] 0.8 mg/dL Normal 0.2-1.3 [facility] Comment on above: Order Comment: Speci men Type: BLOOD SPECIMEN Ordering Facility: [facility] Address: [address] [place] [address] Performed By: #### 2 4331-1, #### [facility] CLIA [id number] [address] [place] [address] [place] Calcium [Mass/Vol] 9.5 mg/dL Normal 8.5-10.2 [facility] Comment on above: Order Comment: Speci men Type: BLOOD SPECIMEN Ordering Facility: [facility] Address: [address] [place] [address] Performed By: #### 2 4331-1, #### [facility] CLIA [id number] [address] [place] [address] [place] Chloride [Moles/Vol] 104 mmol/L Normal 98-107 [facility] Comment on above: Order Comment: Speci men Type: BLOOD SPECIMEN Ordering Facility: [facility] Address: [address] [place] [address] Performed By: #### 2 4331-, #### [facility] CLIA [id number] [address] [place] [address] [place] CO2 [Moles/Vol] 23 mmol/L Normal 22-30 [facility] Comment on above: Order Comment: Speci men Type: BLOOD SPECIMEN Ordering Facility: [facility] Address: [address] [place], [place] [id number] Performed By: #### 2 4331-1, #### [facility] CLIA [id number] [address] [place], [place] [address] [place] Creatinine [Mass/Vol] 0.71 mg/dL Normal 0.58-0.96 [facility] Comment on above: Order Comment: Speci men Type: BLOOD SPECIMEN Ordering Facility: [facility] Address: [address] [place] [address] Performed By: #### 2 4331-1, 68552-0 #### [facility] CLIA [id number] [address] [place] [address] [place] eGFRcr SerPlBld CKD-EPI 2020 106 mL/min/1.73m??? Normal >=60 [facility] Comment on above: Order Comment: Antonieta flannery Type: BLOOD SPECIMEN Ordering Facility: [facility] Address: [address] [place] [address] Result Comment: Emelyn mated Glomerular Filtration Rate (eGFR) is calculated using the 2020 CKD-EPI creatinine equation. This equation utilizes serum creatinine, sex, and age as parameters. The creatinine assay has traceable calibration to isotope dilution-mass spectrometry. Refer to KDIGO guidelines for clinical interpretation. In patients with unstable renal function, e.g. those with acute kidney injury, the eGFR may not accurately reflect actual GFR. Performed By: #### 2 4331-1, 04827-7 #### [facility] CLIA [id number] [address] [place] [address] [place] Glucose [Mass/Vol] 98 mg/dL Normal 74-99 [facility] Comment on above: Order Comment: Antonieta flannery Type: BLOOD SPECIMEN Ordering Facility: [facility] Address: [address] [place] [address] Result Comment: The [place] Diabetes Association (ADA) provides guidance for cutoff values for fasting glucose and random glucose. The ADA defines fasting as no caloric intake for at least 8 hours. Fasting plasma glucose results between 100 to 125 mg/dL indicate increased risk for diabetes (prediabetes). Fasting plasma glucose results greater than or equal to 126 mg/dL meet the criteria for diagnosis of diabetes. In the absence of unequivocal hyperglycemia, results should be confirmed by repeat testing. In a patient with classic symptoms of hyperglycemia or hyperglycemic crisis, random plasma glucose results greater than or equal to 200 mg/dL meet the criteria for diagnosis of diabetes. Reference: Standards of Medical Care in Diabetes 2016, [place] Diabetes Association. Diabetes Care. 2016.39(Suppl 1). Performed By: #### 2 4331-1, 47395-0 #### [facility] CLIA [id number] [address] [place] [address] [place] Potassium [Moles/Vol] 4.0 mmol/L Normal 3.7-5.1 [facility] Comment on above: Order Comment: Speci men Type: BLOOD SPECIMEN Ordering Facility: [facility] Address: [address] [place] [address] Performed By: #### 2 4331-, #### [facility] CLIA [id number] [address] [place] [address] [place] Protein [Mass/Vol] 7.4 g/dL Normal 6.3-8.0 [facility] Comment on above: Order Comment: Speci men Type: BLOOD SPECIMEN Ordering Facility: [facility] Address: [address] [place] [address] Performed By: #### 2 4331-, #### [facility] CLIA [id number] [address] [place] [address] [place] Sodium [Moles/Vol] 140 mmol/L Normal 136-144 [facility] Comment on above: Order Comment: Speci men Type: BLOOD SPECIMEN Ordering Facility: [facility] Address: [address] [place] [address] Performed By: #### 2 4331-, #### [facility] CLIA [id number] [address] [place], [place] [id number] [place] Urea nitrogen [Mass/Vol] 7 mg/dL Normal 7-21 [facility] Comment on above: Order Comment: Speci men Type: BLOOD SPECIMEN Ordering Facility: [facility] Address: [address] [place], [place] [id number] Performed By: #### 2 4331-1, 60985-3 #### [facility] CLIA [id number] [address] [place] [address] [place] HbA1c (Bld)on 06-22-2025 Average glucose Estimated from glycated hemoglobin (Bld) [Mass/Vol] 100 mg/dL Normal [facility] Comment on above: Order Comment: Antonieta flannery Type: BLOOD SPECIMEN Ordering Facility: [facility] Address: [address] [place] [address] Result Comment: eAG: (Estimated average glucose) is a calculated value from HgbA1c and is senior patient account representative of the average blood glucose level in the last 2-3 month period. Performed By: #### 5 5454-3 #### [facility] CLIA [id number] [address] [place] [address] [place] HbA1c (Bld) [Mass fraction] 5.1 % Normal 4.3-5.6 [facility] Comment on above: Order Comment: Antonieta flannery Type: BLOOD SPECIMEN Ordering Facility: [facility] Address: [address] [place] [address] Result Comment: [place] Diabetes Association guidelines indicate that patients with HgbA1c in the range 5.7-6.4% are at increased risk for development of diabetes, and intervention by lifestyle modification may be beneficial. HgbA1c greater or equal to 6.5% is considered diagnostic of diabetes. Performed By: #### 5 5454-3 #### [facility] CLIA [id number] [address] [place] [address] [place] Lipid 1996 panelon Cholesterol [Mass/Vol] 196 mg/dL Normal <200 [facility] Comment on above: Order Comment: Antonieta flannery Type: BLOOD SPECIMEN Ordering Facility: [facility] Address: [address] [place] [address] Result Comment: <200 mg/dL, Desirable 200-239 mg/dL, Borderline high >239 mg/dL, High Performed By: #### 2 4331-1, 02461-1 #### [facility] CLIA [id number] [address] [place] [address] [place] Cholesterol in HDL [Mass/Vol] 34 mg/dL Low >39 [facility] Comment on above: Order Comment: Jose Gtrina flannery Type: BLOOD SPECIMEN Ordering Facility: [facility] Address: [address] [place] [address] Result Comment: 40-5 9 mg/dL, Acceptable >59 mg/dL, High: Negative risk factor for coronary heart disease <40 mg/dL, Low: Positive risk factor for coronary heart disease Performed By: #### 2 4331-1, 47647-0 #### [facility] CLIA [id number] [address] [place] [address] [place] Cholesterol in LDL [Mass/Vol] 130 mg/dL High <100 [facility] Comment on above: Order Comment: Antonieta prudencio Type: BLOOD SPECIMEN Ordering Facility: [facility] Address: [address] [place] [address] Result Comment: <100 mg/dL, Optimal 100-129 mg/dL, Near optimal/above optimal 130-159 mg/dL, Borderline high 160-189 mg/dL, High >189 mg/dL, Very high Secondary prevention optimal LDL Cholesterol levels are recommended to be <70 mg/dL LDL cholesterol is calculated using the Peña-NIH equation. Performed By: #### 2 4331-1, 48490-3 #### [facility] CLIA [id number] [address] [place] [address] [place] Cholesterol in LDL/Cholesterol in HDL [Mass ratio] 3.82 {ratio} High <2.54 [facility] Comment on above: Order Comment: Antonieta flannery Type: BLOOD SPECIMEN Ordering Facility: [facility] Address: [address] [place] [address] Result Comment: Refe harrietce: 1. National Cholesterol Education Program ATP III Guideline At-A-Glance Quick Desk Reference: National Heart, Lung, and Blood Gordon. National Institutes of Health. 2001: NIH Publication No. 01-3305. 2. An International Atherosclerosis Society position paper: global recommendations for the management of dyslipidemia: executive summary, Atherosclerosis. 2014: 232(2):410-413. Performed By: #### 2 4331-1, #### [facility] CLIA [id number] [address] [address] [place] Cholesterol in VLDL [Mass/Vol] 31 mg/dL High <30 [facility] Comment on above: Order Comment: Speci men Type: BLOOD SPECIMEN Ordering Facility: [facility] Address: [address] [place] [address] Performed By: #### 2 433-, #### [facility] CLIA [id number] [address] [place], [place] [address] [place] Cholesterol non HDL [Mass/Vol] 162 mg/dL High <130 [facility] Comment on above: Order Comment: Speci men Type: BLOOD SPECIMEN Ordering Facility: [facility] Address: [address] [place] [address] Result Comment: <130 mg/dL, Optimal 130-159 mg/dL, Near optimal/above optimal 160-189 mg/dL, Borderline high 190-219 mg/dL, High >219 mg/dL, Very high Secondary prevention optimal non HDL Cholesterol levels are recommended to be <100 mg/dL Performed By: #### 2 433-, #### [facility] CLIA [id number] [address] [place] [address] [place] Cholesterol.total/Ch olesterol in HDL [Mass ratio] 5.76 {ratio} High <5.10 [facility] Comment on above: Order Comment: Speci men Type: BLOOD SPECIMEN Ordering Facility: [facility] Address: [address] [place], [place] [address] Performed By: #### 2 4331-1, #### [facility] CLIA [id number] [address] [place], [place] [address] [place] FASTING TIME 12 hrs Normal [facility] Comment on above: Order Comment: Speci men Type: BLOOD SPECIMEN Ordering Facility: [facility] Address: [address] [place] [address] Performed By: #### 2 4331-1, 64887-8 #### [facility] CLIA [id number] [address] [place] [address] [place] Triglyceride [Mass/Vol] 176 mg/dL High <150 [facility] Comment on above: Order Comment: Speci men Type: BLOOD SPECIMEN Ordering Facility: [facility] Address: [address] [place] [address] Result Comment: <150 mg/dL, Normal 150-199 mg/dL, Borderline high 200-499 mg/dL, High >499 mg/dL, Very high Performed By: #### 2 4331-1, 77077-4 #### [facility] CLIA [id number] [address] [place] [address] [place] CNOVon 01-27-2025 CNOV Office Visit (OBGYWM ) RATNA RAY ([id number]) 1980 F Date Time Provider Department 01/27/25 2:30 PM MIKKI VELAZQUEZ During your visit today, we recorded the following information about you: Blood pressure Weight Height Last Period 131/91 55.3 kg 1.385 m 01/06/25 Mikki Velazquez APRN.ZONING ENGINEER 01/27/2025 3:13 PM Signed Group Worker offered: Patient accepts, visit chaperoned by caregiver Nayeli Bradley Nick Webb is a 44 year old who presents for an annual gynecologic exam without complaints. Menses: cycles every 25-30 days and 4-5 days of flow. Contraception: none HPV vaccine: N/A Last Pap: 12/05/2023 normal HPV: N/A History of abnormal pap: No Last mammogram: today, pending Sexually active: No Documentation from previous visit of 12/05/2023 was copied and pasted, documentation has been reviewed and edited as necessary for today's visit. OB History Gravida0 Para0 Term0 Preterm0 AB0 Living0 SAB0 IAB0 Ectopic0 Multiple0 Live Births0 Adopted: Yes Problem Relation Age of Onset other (Adopted Status - Unknown) Other SOCIAL HISTORY Social History Tobacco Use Smoking status: Never Smokeless tobacco: Former Vaping Use Vaping status: Never Used Substance Use Topics Alcohol use: No Drug use: No REVIEW OF SYSTEMS Abdomen: No abdominal pain, nausea, vomiting, diarrhea, or constipation. No bloating, early satiety, indigestion, or increased flatulence. Bladder: No dysuria, gross hematuria, urinary frequency, urinary urgency, or incontinence.Wears pad but only voids in pad if in a hurry. Breast: No breast lumps, nipple d/c, overlying skin changes, redness or skin retraction. Allergies and current medication updated:Yes SENSITIVE EXAM: The sensitive examination was discussed with the Patient or Patient's Authorized Page Designer. As applicable, any other physician, advance practice provider, medical student, or other health professional student that will be observing or involved in the sensitive examination for educational or training purposes was discussed with the Patient or Authorized Page Designer. The Patient or Authorized Page Designer has agreed to proceed with the sensitive examination. (Sensitive examination includes inspection and/or palpation of the breasts, pelvis, prostate and anorectal regions). EXAM: BP 131/91 Ht 4' 6.528 (1.39m) Wt 122 lb (55.3kg) LMP 01/06/2025 BMI 28.85 kg/(m2). GENERAL: pleasant, female in no apparent distress HEENT: Normocephalic, atraumatic, mucus membranes moist, and no lesions NECK: Supple, full range of motion, no adenopathy, and thyroid normal DERMATOLOGY: Normal, without lesions, non-icteric, and non-hirsute BREAST: soft, non-tender, symmetric, no dominant mass, normal nipple-areolar complex, no lymphadenopathy, and no nipple discharge CHEST: Normal inspiratory effort ABDOMEN: soft, non-tender, and no masses PELVIC: external genitalia normal, normal Bartholin's glands, urethra, [place]'s glands, no vulvar lesions, no cervical lesions, good vaginal support, physiologic discharge present, normal appearing perineal body and perianal region BIMANUAL: uterus normal size, shape and consistency, no adnexal masses, and non-tender RECTOVAGINAL: deferred. NEURO: alert and oriented EXTREMITIES: normal per pt ASSESSMENT/PLAN: 1) Health maintenance: Pap/HPV up to date. Mammogram up to date and ordered Nutrition, exercise and routine health maintenance exams reviewed. 2) Contraception: none. Not sexually active 3) Follow up one year or sooner as needed Mikki Velazquez APRN.CNP Allergies As of Date: 01/27/2025 Noted Allergy Reaction BEE VENOM PROTEIN (HONEY BEE) 12/05/2023 14 - Other: See Comments Date Reviewed: 01/27/2025 Reviewed by: Mikki Velazquez APRN.ZONING ENGINEER - Fully Assessed Reason for Visit: Well Woman [1463] Primary Visit Diagnosis:Encounter for gynecological examination (general) (routine) without abnormal findings [Z01.419] Other Visit Diagnosis:Encounter for screening mammogram for breast cancer [Z12.31] Order(s):[facility] SCREENING Matthew BAILEY [[id number]] Order #: [id number] FUTURE Prescriptions as of 01/27/2025 - acetaminophen (TYLENOL EXTRA STRENGTH) 500 mg tablet Take 2 tablets by mouth every 4 hours as needed for pain. Do not exceed 4000mg in 24 hours - levocetirizine 5 mg tablet TAKE 1 TABLET BY MOUTH ONCE DAILY. FOR ALLERGY SYMPTOMS - escitalopram oxalate (LEXAPRO) 10 mg tablet Take 1 tablet by mouth once daily. - famotidine (PEPCID) 40 mg tablet Take 1 tablet by mouth daily at bedtime. Replaces ranitidine - EPINEPHrine (EPIPEN) 0.3 mg/0.3 mL auto-injector use as directed incase of bee sting, Inject 0.3 ml Intramuscularly - mupirocin (BACTROBAN) 2 % ointment Apply 1 application to affected area two times a day. until rash clears and then discontinue. for facial rash - Diaper,Brief, A (more content not included)... Normal [facility] SCREENINGon 01-27-2025 [facility] SCREENING * * *Final Report* * * DATE OF EXAM: Jan 27 2025 2:32PM MARIA A 0581 - [facility] SCREENING / PROCEDURE REASON: Encounter for screening mammogram for breast cancer * * * * Physician Interpretation * * * * RESULT: [facility] [address] [id number] #[id number] - [facility] SCREENING HISTORY: 44 year-old patient seen for screening. Patient is asymptomatic in both breasts. Patient states no personal history of breast cancer. COMPARISON STUDIES: The present examination has been compared to prior imaging studies dated 08/13/2019 (mammogram), 08/25/2020 (mammogram), 11/23/2021 (mammogram), 01/17/2023 (mammogram) and 01/22/2024 (mammogram). MAMMOGRAM TECHNIQUE: The study was acquired using full field digital technology and interpreted from soft copy. MAMMOGRAM FINDINGS: The breasts are heterogeneously dense, which may obscure small masses. No suspicious masses, calcifications or other abnormalities are seen in either breast. There are no significant interval changes. IMPRESSION: There is no mammographic evidence of malignancy in either breast. Routine screening mammogram is recommended. Annual mammogram will be due in 1 year. BI-RADS Category 1: Negative RISK: Based on the Tyrer-Cuzick (TC) risk assessment model, this patient has a 10.2% lifetime risk of developing breast cancer, meaning they are at average risk for developing breast cancer. However, this is only an estimate based on available history provided on the patient's questionnaire. We encourage all patients to talk with their providers about these results, further recommendations for managing breast health, and appropriate supplemental screening options if the patient has dense breast tissue. Interpreting Radiologist: Sunita Todd M.D. Electronically signed on: 01/28/2025 Computer Programming Manager: YAQUELIN Transcribe Date/Time: Jan 27 2025 2:04P Dictated by: SUNITA TODD MD This examination was interpreted and the report reviewed and electronically signed by: SUNITA TODD MD on Jan 28 2025 9:58AM EST [id number] Normal [facility] Michelle 12-29-2024 CNPN Telephone (OBGYWM) RATNA RAY ([id number]) 1980 F Date Time Provider Department 12/29/24 MIKKI VELAZQUEZ During your visit today, we recorded the following information about you: Radha Hutchins 12/29/2024 9:29 AM Signed Please link pended order once signed to scheduled appointment on 01/27/25. Erna Gamez RN 12/29/2024 9:36 AM Signed Mammogram w/Ajit pending. Please file and will attach to appt. VARUN Gallagher Tara, RN 12/29/2024 10:53 AM Signed Order linked to appt. Erna Gamez RN Allergies As of Date: 12/29/2024 Noted Allergy Reaction BEE VENOM PROTEIN (HONEY BEE) 12/05/2023 14 - Other: See Comments Date Reviewed: 12/15/2024 Reviewed by: Marycruz Russell APRN.ZONING ENGINEER - Fully Assessed Reason for Visit: Orders [681] Cmt: Mammo Screen W AJIT Primary Visit Diagnosis:Breast screening [Z12.39] Other Visit Diagnosis:Encounter for screening mammogram for breast cancer [Z12.31] Order(s):[facility] SCREENING W AJIT [[id number]] Order #: [id number] FUTURE Prescriptions as of 12/29/2024 - acetaminophen (TYLENOL EXTRA STRENGTH) 500 mg tablet Take 2 tablets by mouth every 4 hours as needed for pain. Do not exceed 4000mg in 24 hours - levocetirizine 5 mg tablet TAKE 1 TABLET BY MOUTH ONCE DAILY. FOR ALLERGY SYMPTOMS - escitalopram oxalate (LEXAPRO) 10 mg tablet Take 1 tablet by mouth once daily. - famotidine (PEPCID) 40 mg tablet Take 1 tablet by mouth daily at bedtime. Replaces ranitidine - EPINEPHrine (EPIPEN) 0.3 mg/0.3 mL auto-injector use as directed incase of bee sting, Inject 0.3 ml Intramuscularly - mupirocin (BACTROBAN) 2 % ointment Apply 1 application to affected area two times a day. until rash clears and then discontinue. for facial rash - Diaper,Brief, Adult,Disposable (BRIEFS EXTRA LARGE) 1 Units as needed. - Diaper,Brief, Adult,Disposable (ADULT BRIEF - EXTRA LARGE) 1 Units as needed. - pseudoephedrine (SUDAFED) 30 mg tablet Take 1 tablet by mouth every 4 hours as needed for Cold/Allergy Symptoms. - ibuprofen (MOTRIN) 400 mg tablet Take 400 mg by mouth every 6 hours as needed. 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] 05/13/2023 Nystagmus [H55.00] 05/13/2023 Myopia of both eyes [H52.13] 05/13/2023 Regular astigmatism of both eyes [H52.223] 05/13/2023 Encounter Status:Closed by ERNA GAMEZ on 12/29/24 [facility] CNOVon 12-15-2024 CNOV Office Visit (INTMWS ) BRYNNDEYVIRATNA ([id number]) 1980 F Date Time Provider Department 12/15/24 3:40 PM MARYCRUZ RUSSELL INTMWS During your visit today, we recorded the following information about you: Pulse Blood pressure Weight 71/minute 131/85 54.7 kg Marycruz Russell APRN.ZONING ENGINEER 12/15/2024 3:48 PM Signed SUBJECTIVE Ratnabryan Ray is a 43 year old female here today for a check up on her medical problems. Chief Complaint Patient presents with: F/U 6 months HPI Ratna Hanks Fer is a 43 year old female. She is an established patient of Romy Greer MD. Here today for a routine 6 month follow up. She is accompanied by her guardian. They report that her appetite is good. Doing well, exercising. Sleeping good. No recent falls. Taking medication well. Due for labs before next visit. Denies any questions or concerns. Her medications were reviewed today and her list is now up to date. Medications Current Outpatient Medications Medication Sig levocetirizine 5 mg tablet TAKE 1 TABLET BY MOUTH ONCE DAILY. FOR ALLERGY SYMPTOMS escitalopram oxalate (LEXAPRO) 10 mg tablet Take 1 tablet by mouth once daily. famotidine (PEPCID) 40 mg tablet Take 1 tablet by mouth daily at bedtime. Replaces ranitidine EPINEPHrine (EPIPEN) 0.3 mg/0.3 mL auto-injector use as directed incase of bee sting, Inject 0.3 ml Intramuscularly mupirocin (BACTROBAN) 2 % ointment Apply 1 application to affected area two times a day. until rash clears and then discontinue. for facial rash pseudoephedrine (SUDAFED) 30 mg tablet Take 1 tablet by mouth every 4 hours as needed for Cold/Allergy Symptoms. ibuprofen (MOTRIN) 400 mg tablet Take 400 mg by mouth every 6 hours as needed. acetaminophen (TYLENOL EXTRA STRENGTH) 500 mg tablet Take 2 tablets by mouth every 4 hours as needed for pain. Do not exceed 4000mg in 24 hours Diaper,Brief, Adult,Disposable (BRIEFS EXTRA LARGE) 1 Units as needed. Diaper,Brief, Adult,Disposable (ADULT BRIEF - EXTRA LARGE) 1 Units as needed. No current facility-administered medications for this visit. 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 Respiratory: Negative. Cardiovascular: Negative. OBJECTIVE BP 131/85 Pulse 71 Wt 120 lb 9.5 oz (54.7kg) SpO2 98% LMP 06/10/2024 Physical Exam Vitals and nursing note reviewed. Constitutional: General: She is awake. She is not in acute distress. Appearance: Normal appearance. She is well-developed and well-groomed. She is not ill-appearing, toxic-appearing or diaphoretic. HENT: Head: Normocephalic. Right Ear: External ear normal. Left Ear: External ear normal. Nose: Nose normal. Eyes: General: Vision grossly intact. Conjunctiva/sclera: Conjunctivae normal. Pupils: Pupils are equal, round, and reactive to light. Neck: Vascular: No JVD. Trachea: Trachea normal. Cardiovascular: Rate and Rhythm: Normal rate and regular rhythm. Pulses: Normal pulses. Heart sounds: Normal heart sounds. No murmur heard. Pulmonary: Effort: Pulmonary effort is normal. No accessory muscle usage, prolonged expiration or respiratory distress. Breath sounds: Normal breath sounds. Musculoskeletal: Cervical back: Neck supple. Skin: General: Skin is warm and dry. Capillary Refill: Capillary refill takes less than 2 seconds. Neurological: General: No focal deficit present. Mental Status: She is alert and oriented to person, place, and time. Mental status is at baseline. Psychiatric: Attention and Perception: Attention and perception normal. Mood and Affect: Mood and affect normal. Behavior: Behavior normal. Behavior is cooperative. Thought Content: Thought content normal. ASSESSMENT/PLAN: 1. Infantile cerebral palsy (HCC) - ICD9: 343.9, ICD10: G80.9 (primary diagnosis) Overall she is doing well, guardian denies any questions or concerns with the visit today. 2. Intellectual disability - ICD9: 319, ICD10: F79 See above. 3. Abnormal gait - ICD9: 781.2, ICD10: R26.9 Doing well with gait belt use. 4. Swallowing problem - ICD9: 787.20, ICD10: R13.10 Doing well with a modified diet. 5. Dyslipidemia - ICD9: 272.4, ICD10: E78.5 Due for labs, orders in for before next visit. 6. IFG (impaired fasti (more content not included)... Normal [facility] IMMUNOCHEMICAL FECAL OCCULT BLOOD TESTOrdered By: Deon Warner on 06-29-2024 Lower GI hemoglobin IA Ql (Stl) Negative Negative [facility] Lower GI hemoglobin IA Ql (S tl)Ordered By: Deon Warner on 06-29-2024 Interpretation and review of laboratory results Normal [facility] This test was developed and its performance characteristics determined by [facility] ([facility]). It has not been cleared or approved by the FDA. [facility] is regulated under CLIA as qualified to perform high-complexity testing. This test is used for clinical purposes. It should not be regarded as investigational or for research. [facility] Hemoccult Stl Ql IAon 2023 Lower GI hemoglobin IA Ql (Stl) Negative Normal Negative [facility] Comment on above: Order Comment: Speci men Type: STOOL SPECIMEN Ordering Facility: [facility] Address: [address] [place] [address] Performed By: #### 2 [id number] #### [facility] CLIA [id number] [address] [place] [address] [place] Inital Evaluation (1) - PTon 05-23-2023 Inital Evaluation (1) - PT [facility] [address] [place] [address] / REHABILITATION SERVICES INITIAL EVALUATION MR#: [id number] Acct: [id number] Name: RATNA RAY Rep #: [id number] : 1980 42 From: Geovani Esteban DPT Referring Dr.: Dr. Romy Greer MD Status: REG RCR Insurance: MEDICARE PART A B MEDICAID [place] Patient's Visit Information Visit Information Visit Information: RATNA RAY is a 42 year old F referred to Physical Therapy by Dr. Romy Greer MD with a diagnosis of CP with need for gait belt training. Date of Evaluation: 05/22/23 Physical Therapist: Geovani Esteban DPT Visit Plan Frequency: 1x/Week Duration: 1 Week Plan: Tracey and her caregiver were trained in proper use of gait belt this date with walking and on stairs. Tracey is a bit impulsive and needs cues to focus on her gait. With use of gait belt she is much safer. Patient does not need and would have difficulty using an AD with her gait. Shin and patient both trained in gait belt safety and use. They were both trainined and will be DC from PT at this point in time. Subjective Subjective: Pt is here today for her initial evaluation with diagnosis of subsequent falls and infantile CP. Pt. lives in a mcc and has had a few falls with in the last year with the last one being while she was at the [employer]. Pt. was returning from rolling her ball and slipped and fell. She is non verbal but her health care legal assistant is here. She reports that Tracey did end up braking her nose during this fall. She arrives wearing a gait belt with health care legal assistant assisting. sample taker operator reports no major decline in her recent ability, but has been using the gait belt on her since for safety. No further falls have occurred. diagram clerk reports patient tends to be fast with her walking and is usually looking around at other things while she was walking. they were hoping for instruction on proper gait belt usage for safety. Objective Objective: POSTURE: flexed posture in stance, wide KATRIN. PALPATION: No issues with palaption. NEURO: normal sensation, decreased ability to raise on heels and toes. ROM: Pt. has general tightness with her HS and mod loss throughout her lumbar spine. Pt. has decreased B knee flexion and lacking end ranged extension as well. MMT: PT. has 5/5 strength throughout BLEs, except 4/5 throughout her hips. GAIT: Pt. ambulates without AD. She is pretty impulsive with her movements but does follow directions. She has gait belt in place. She does have some lateral deviation, but is able to self co rrect with CGA with gait belt. No LOB Noted. STAIRS: Pt. was able to complete with 2 HR with CGA. We talked extensively on the use of a gait belt. How to don/doff, where to stand, how to aid in balance and use of ground and stairs. Her caregiver was able to complete and demonstrate back. Balance/Special Test Scores Lower Extremity Functional Score: 80 TUG Test Time Seconds: 16.1 30 Second Chair Rise Test Seconds: 14 Goals Goal 1:: STG: caregiver to be trained in proper use of gait belt and how to assist patient with gait and balance. Goal Time Frame: 1 Week Rehabilitation Potential Physical Therapy Diagnosis: Pt. has signs and symptoms consistent with some imbalance and need for external assistance with gait due to her CP. Pt. tends to be impulsive with her movements and gait and the use of a gait belt is warranted. Caregiver able to demonstrate back to PT this date with proper use. Rehabilitation Potential: Excellent Anticipated Interventions Patient/Client Instruction: Educate patient on: Condition, Plan of Care, Risk Factors and Benefits of Fitness Program For the Purpose of:: To improve self management, To prevent re-injury, To improve ability to perform tasks related to life management and To improve tolerance to ADL's Therapeutic Exercise to Include: Body mechanics, Postural training and Gait and locomotor training For the Purpose of:: To improve gait and locomotor functions, To improve health of tissue and To improve safety with gait Text: Thank you for the opportunity to evaluate your patient. For Medicare and Medicare HMO plans, please review the plan of care and approve it. It will need to be FAXED BACK to us at [phone] for Medicare purposes. For Medicare only, by signing this I certify the plan of care. Please let me know if there are questions or concerns regarding this plan of care. Physician Signature: Date:__ 05/23/23817 CC: Dr. Romy Greer MD CLS Signed Normal [facility] Modified Barium Swallow Stud yon 04-23-2023 Modified Barium Swallow Study [facility] Speech Pathology [address] [place] [address] Modified Barium Swallow Study MR#: [id number] Acct: [id number] Name: RATNA RAY Rep #: [id number] : 1980 42 From: Kathia Norris M.A. [facility] [employer] Modified Barium Swallow Patient Information Study Date: 04/23/23 Study Time: 13:00 Direct Billable Minutes: 140 Total Minutes procedure reportin Diagnosis: Cerebral Palsy (680.9), Dysphagia (R13.10). Referring Physician: Marycruz Russell NP Reason for Referral: Objectively assess swallow function, risk for aspiration and to determine recommendations for LRD and compensatory strategies to improve safety of swallow.. Medical History: Patient is a 42yo F w/ relevant PMH re: cerebral palsy, intellectual disability, GERD here for modified barium swallow study. Patient is non-verbal and lives in a mcc. Caregiver present for study. Caregiver reports patient had several of her front teeth removed and noticed increased difficulty eating meals. She is currently on what was described as a soft and bite size diet d/t having several teeth removed. Caregiver reports pocketing of the food. Patient had modified barium swallow study done in December of 2017 w/ recommendations for regular-soft textured food and thin liquid diet w/ the following compensatory strategies re: supervision w/ PO intake, cut solids into quarter sized / bite size pieces, reduced bolus volume, seated upright at 90 degrees, remain upright for 30-60 minutes post meal (GERD PRECAUTIONS). Current Diet Ordered: Soft and Bite Size / Thin Liquids Dentition: Missing Teeth Mental Status: Impaired Respiratory Status: Oxygenating on Room Air Penetration-Aspiration Scale Penetration-Aspiration Scale: OBJECTIVE ASSESSMENT OF SWALLOW FUNCTION (QUANTITATIVE ??? PER TRIAL): PENETRATION / ASPIRATION SCALE (RICE): 1 = does not enter airway 2 = enters airway/above vocal folds/ejected 3 = enters airway/above vocal folds/not ejected 4 = enters airway/contacts vocal folds/ejected 5 = enters airway/contacts vocal folds/not ejected 6 = enters airway/below vocal folds/ejected 7 = enters airway/below vocal folds/not ejected despite effort 8 = enters airway/below vocal folds/no effort VIDEOFLOROSCOPIC SCALE SCORE (RICE): Grade I = aspiration of material that has penetrated into the laryngeal vestibule, intact cough reflex Grade II = aspiration < 10 % of the bolus, intact cough reflex Grade III = aspiration of < 10 % of the bolus, reduced cough reflex or aspiration of > 10 % of the bolus, intact cough reflex Grade IV = aspiration of > 10 % of the bolus, reduced cough reflex Penetration-Aspiration Scale Score Thin Liquid via teaspoon: Result: 1= does not enter airway Thin Liquid via teaspoon Trial 2: Result: 1= does not enter airway Thin Liquid via sequential sips from cup: Result: 1= does not enter airway Pudding: Result: 1= does not enter airway Pears: Result: 1= does not enter airway Thin Liquid via sequential sips from cup Trial 2: Result: 1= does not enter airway Oral Phase Labial Seal: No Labial Escape Tongue Control During Bolus Hold: Escape to lateral buccal cavity/floor of mouth Bolus Preparation/Masticatio n: Disorganized chewing/mashing with solid pieces of bolus unchewed Bolus Transport/Lingual Motion: Repetitive/disorganize d tongue motion Oral Residue: Trace residue lining oral structures Pharyngeal Phase Initiation of Pharyngeal Swallow: Bolus head at posterior laryngeal surgace of epiglottis Soft Palate Elevation: No bolus between soft palate and pharyngeal wall Laryngeal Elevation: Comp. Superior move thyroid cart w/comp. apprx arytenoid cart-epig pet Anterior Hyoid Excursion: Complete anterior movement Epiglottic Movement: Complete inversion Laryngeal Vestibule Closure at Height of Swallow: Complete; no air/contrast in laryngeal vestibule Pharyngeal Stripping Wave: Present - complete Pharyngoesophageal Segment Opening: Complete distension and complete duration; no obstruction of flow Tongue Base Retraction: No contrast between tongue base and posterior pharyngeal wall Pharyngeal Residue: Trace residue within or on pharyngeal structures Diagnosis/Impression Diagnosis: mild to moderate oropharyngeal dysphagia R13.12 Impression: Pt. presents w/ mild to moderate oropharyngeal dysphagia likely secondary to cerebral palsy dx. Oral phase primarily marked by... 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 - suboptimal bolus location upon swallow onset - no penetration/aspiration observed, however unable to definitely rule out (more content not included)... Normal [facility] Brain/Head without Contrasto n 02-25-2023 Brain/Head without Contrast [facility] Imaging Services [address] [place] [address] Brain/Head without Contrast MR#: [id number] Acct: [id number] Name: RATNA RAY Rep #: [id number] : 1980 F 42 From: Haim gant MD PCP: Dr. Romy Greer MD Status: REG ER Study: Brain/Head without Contrast Date of Exam: 02/11 03/05 Exam# [id number] Ordering Dr: Ariel Martins DO STUDY: CT BRAIN WITHOUT CONTRAST REASON FOR EXAM: Female, 42 years old. Fall, head trauma. Bloody nose. RADIATION DOSAGE (If Supplied By Facility): CTDIvol = ( 44.99 ) mGy, DLP = ( 1524.72 ) mGycm TECHNIQUE: Transaxial CT imaging of the brain was performed without administration of intravenous contrast material. Individualized dose optimization techniques were used for this CT. COMPARISON: No relevant priors. FINDINGS: Normal soft tissue structures. Normal calvarium. Mild degree of hydrocephalus. Normal white matter tracts of the cerebral hemispheres. Normal basal ganglia and thalami. Normal brainstem. Normal cerebellum. There is no intracranial hemorrhage. There are no findings of an acute ischemic infarction. Normal visualized paranasal sinuses. CT/Brain/Head without Contrast IMPRESSION: Mild degree of hydrocephalus. Electronically Signed: Haim Virgen MD at 15:09 EDT Reading Location ID and State: [facility] / [place] , Service support , CC: Dr. Romy Greer MD; Dr. Ariel Martins DO Computer Programming Manager: Signed Normal [facility] Emergency Department Summary on 02-25-2023 Emergency Department Summary [facility] Medical Records Department [address] [place] [address] Emergency Department Summary 02/25/23 MR#: [id number] Acct: [id number] Name: DAMARIS RAYBRYAN Hanks Rep #: [id number] : 1980 42 From: Ariel Martins DO PCP: Dr. Romy Greer MD Status:DEP ER Location: ED HPI HPI - Fall History of Present Illness Chief Complaint: Fall PFSH PFSH Medical History (Updated 02/25/23 @ 15:[address] Ariel Martins DO) Cerebral palsy Home Medications escitalopram oxalate 20 mg tablet 20 mg PO DAILY 06/03/19 [History Last Taken Unknown] levocetirizine 5 mg tablet 5 mg PO DAILY 06/03/19 [History Last Taken Unknown] ranitidine HCl 150 mg tablet 150 mg PO DAILY 06/03/19 [History Last Taken Unknown] Allergy/AdvReac Type Severity Reaction Status Date / Time bee venom protein (honey bee) Allergy Unknown Verified 02/25/23 14:05 Social History Smoking Status: Never smoker EXAM Physical Exam Const Vital Signs: 02/25/23 14:03 02/25/23 14:44 Temperature 97.6 F L Temperature Source Temporal Pulse Rate 110 H Respiratory Rate 20 H Respiratory Effort Normal Respiratory Depth Normal Respiratory Pattern Normal Blood Pressure 164/109 H Blood Pressure Mean 127 Pulse Ox 99 Oxygen Delivery Method Room Air Room Air MDM MDM MDM Narrative Medical decision making narrative: HISTORY OF PRESENT ILLNESS: 42-year-old female here after mechanical fall. The patient is nonverbal. History is provided by the patient's mcc caregiver. She states patient mechanical fall from standing. No reported syncope. They do note head trauma but no loss of consciousness vomiting or abnormal behavior. They state the patient does not take blood thinners. REVIEW OF SYSTEMS: Pertinent positives: Epistaxis Pertinent negatives: Loss of consciousness PHYSICAL EXAM: Nursing triage notes reviewed, Vital signs reviewed Primary Survey Airway: Intact Breathing: Bilateral breath sounds Circulation: Palpable bilateral femorals, Palpable bilateral radial, Palpable bilateral DP and Palpable bilateral PT Disability / Spine precautions GCS Score: Eye Openin Verbal Response: 5 Motor Response: 6 Secondary Survey Constitutional: Please see MDM Head: Atraumatic, Midface stable, NO jaw malocclusion, No Cephalohematoma, and No Lacerations noted Eye: Pupils equal round and reactive to light, Extraocular muscles intact and No periorbital ecchymosis or stepoff, no evidence of entrapment ENT: Oropharynx clear, no lacerations, no hemotympanum, no raccoon eyes or mccarthy sign,, dried blood noted over the left nares, no active epistaxis Cervical spine / Neck: No cervical spine bony tenderness, crepitance, or stepoff deformity Trachea midline Lungs: Clear to auscultation, No asymmetric rise and No crepitus, no flail chest Cardiac: Regular rate and rhythm and No murmurs Abdomen: Soft, Nontender and No rebound Pelvis: Pelvis stable to compression : No evidence of genital injury Back: No midline bony tenderness to thoracic/lumbar/sacral spines Neuro: At baseline, intact strength and sensation in bilateral upper and lower extremities. 2+ patellar reflexes bilaterally. Extremities: NO gross Deformities Psych: Normal affect Nursing triage notes reviewed, Vital signs reviewed MEDICAL DECISION MAKING: Chief Complaint: Fall, head trauma External records reviewed: No blood thinners, no recent ED visits MDM Narrative: The patient was initially tachycardic, tachypneic hypertensive afebrile. Primary secondary trauma surveys concerning for acute intracranial, cervical spine injury. Given the patient being nonverbal and lack of definitive communication skills I did pursue a broader work-up than usual including CT scans of the head neck and face. CT scan showed no evidence of acute traumatic injury. Tertiary exam without new injuries. The patient ambulated well in the ED. She is appropriate discharge home. She was given concussion precautions and return precautions. Factors affecting care: Cerebral palsy, nonverbal Social determinants of health: Never smoker History obtained from others: The patient's caregiver Shared decision making: I will have a discussion with the patient and or visitors regarding risk/benefits of further testing or admission. They will be made aware of of the risk/benefits inherent in this decision they will be given the opportunity to voice understanding. Consults: None Radiography Diagnostic Testing: Clinical Impression(s) from Imaging Studies Brain CT 02/25/23 14:27 IMPRESSION: Mild degree of hydrocephalus. Electronically Signed: Haim Virgen MD at 15:09 EDT , Fa (more content not included)... Normal [facility] Sinus/Facial Boneon 02-26-20 Sinus/Facial Bone [facility] Imaging Services [address] [place] [address] Sinus/Facial Bone MR#: [id number] Acct: [id number] Name: RATNA RAY Rep #: [id number] : 1980 F 42 From: Haim gant MD PCP: Dr. Romy Greer MD Status: REG Study: Sinus/Facial Bone Date of Exam: 02/25/23 Exam# [id number] Ordering Dr: Ariel Martins DO STUDY: CT FACIAL BONES WITHOUT CONTRAST REASON FOR EXAM: Female, 42 years old. Fall, facial trauma RADIATION DOSAGE (If Supplied By Facility): CTDIvol = ( 29.38 ) mGy, DLP = ( 554.8 ) mGycm TECHNIQUE: The patient was scanned in a multi detector CT scanner. Sagittal and coronal images were reconstructed. Individualized dose optimization techniques were used for this CT. COMPARISON: None. FINDINGS: Normal soft tissue structures. Normal orbital sanabria and orbital contents. Nondisplaced nasal bone fracture. Normal facial bones. There is no demonstrated fracture. Normal visualized paranasal sinuses. CT/Sinus/Facial Bone IMPRESSION: Nondisplaced nasal bone fracture. Electronically Signed: Haim Virgen MD at 15:10 EDT Reading Location ID and State: [facility] / [place] , Service support , CC: Dr. Romy Greer MD; Dr. Ariel Martins DO Computer Programming Manager: Signed Normal [facility] Spine Cervical without Contr ason 02-25-2023 Spine Cervical without Contras [facility] Imaging Services [address] [place] [address] Spine Cervical without Contras MR#: [id number] Acct: [id number] Name: RATNA RAY Rep #: [id number] : 1980 F 42 From: Haim gant MD PCP: Dr. Romy Greer MD Status: REG ER Study: Spine Cervical without Contras Date of Exam: 0 02/25/23 Exam# [id number] Ordering Dr: Ariel Martins DO STUDY: CT CERVICAL SPINE WITHOUT CONTRAST REASON FOR EXAM: Female, 42 years old. Fall, neck pain RADIATION DOSAGE (If Supplied By Facility): CTDIvol = ( 26.88 ) mGy, DLP = ( 1003.58 ) mGycm TECHNIQUE: High resolution transaxial imaging was performed without contrast material. Sagittal and coronal images were reconstructed. Individualized dose optimization techniques were used for this CT. COMPARISON: None FINDINGS: Normal craniovertebral junction. Normal anterior atlantoaxial articulation. Normal odontoid process. There is straightening of the normal cervical lordosis. Normal vertebral bodies and posterior osseous elements. C2-3: Moderate degree of disc space narrowing and spondylosis. Mild degree of right neural foraminal stenosis. C3-4: Fusion at the C3-C4 disc space level. C4-5: Partial fusion at the C4-C5 level. C5-6: Normal endplates. Normal disc height and morphology. Normal central canal and intervertebral neuroforamina. C6-7: Normal endplates. Normal disc height and morphology. Normal central canal and intervertebral neuroforamina. C7-T1: Normal endplates. Normal disc height and morphology. Normal central canal and intervertebral neuroforamina. Normal visualized soft tissue structures. CT/Spine Cervical without Contras IMPRESSION: Straightening of the normal cervical lordosis. Disc space narrowing and spondylosis at the C2-C3 level. Fusion at the C3-C4 disc space level and partial fusion at the C4-C5 level. Electronically Signed: Haim Virgen MD at 15:12 EDT , CC: Dr. Romy Greer MD; Dr. Ariel Martins DO Computer Programming Manager: Signed [facility] Influenza virus A and B RNA and SARS-CoV-2 (COVID-19) N gene panel EFREM+probe (Resp)on 01-23-2023 FLUAV RNA EFREM+probe Ql (Unsp spec) Not detected Not Detected [facility] FLUBV RNA EFREM+probe Ql (Unsp spec) Not detected Not Detected [facility] SARS-CoV-2 (COVID-19) RNA EFREM+probe Ql (Resp) Not detected See comment [facility] CHRISTIAN SCREENINGon 01-17-2023 [facility] HCG ( test) Ql (U)o n 11-09-2022 Beta HCG ( test) Ql (U) [id number] [facility] Interpretation and review of laboratory results Normal [facility] NEGATIVE QC Pass [facility] POSITIVE QC Pass [facility] Preg Test, Ur Negative Negative [facility] Nursing Noteon 11-09-2022 Nursing Note Went over discharge instructions with caregiver. She verbalized understanding. Patient is doing well and preparing for discharge Normal [facility] Op Noteon 11-09-2022 Op Note Medical record: [id number] Date of operation: 09/17/2022 Patient name: Ratna Ray Sex: female Date of : 1980 Age: 41 y.o. Attending: Laurie Chavez DDS Resident: Kevin Bhat DMD, Shashank Schneider DDS Pre-op diagnosis: Periodontal Disease, Restorable and Non-restorable Dental Caries Non restorable carious dentition: #7,8,10,23,24,25,26 Restorable dentition: all remaining dentition Post-op diagnosis: Periodontal Disease and Restorable and Non-restorable Indication: Patient is unable to be seen in conventional dental setting due to developmental delay. Treatment provided under general anesthesia. Operation: Comprehensive dental treatment. Procedure: The patient was placed in a supine position on the surgical table. Nasal endotracheal tube was inserted and general anesthesia was administered. Mouth was suctioned continuously and throat pack was placed. Complete oral exam was performed. 14 # PA films were exposed and evaluated. Debridement and Prophy was completed with Cavitron and hand instrumentation. Local anesthesia administered. 3 carpules of 2% Lidocaine with 1:100k epi given via local infiltration around teeth # 7,8,10,23,24,25,26 Teeth # #7,8,10,23,24,25,26 treatment planned for extraction due to non-restorable and periodontal disease. Extractions completed via forceps and elevation. interupted and continuoussutures placed at 3.0 chromic gut in areas #23,24,25,26 All remaining dentition deemed restorable. No decay noted Throat pack was removed, patient was extubated. Patient tolerated procedure well and went to recovery in good condition. EBL: 10 mL Fluid: 500 mL No complications during procedure. Medications Prescribed: Ibuprofen, 600mg, 16 tabs, Take 1 q6-8h for pain, 0 refills and [place] 5/325, 10 (ten) tabs, Take 1 q4-6h for pain, 0 refills Follow-up in dental clinic in 1 year [facility] Nursing Noteon 11-05-2022 Nursing Note Left voicemail at Dental Clinic to place treatment consent orders in guillermo so that phone consent can be obtained from pt's guardian prior to surgery. Guardian will not be with pt day of surgery. Normal [facility] Nursing Noteon 11-02-2022 Nursing Note Called Dental Clinic at *[phone]icemail [address] treatment consent orders in guillermo so that phone consent can be obtained from pt's POA before surgery. [facility] PREPROCINSon 11-02-2022 PREPROCINS Medication List Accurate as of November 02, 2022 9:59 AM. Always use your most recent med list. cetirizine 5 MG tablet Commonly known as: ZyrTEC Medication Adjustments for Surgery: Take morning of surgery with sip of water, no other fluids EPINEPHrine 0.15 mg/0.15 mL solution auto-injector injection Commonly known as: Auvi-Q Notes to patient: Use if needed escitalopram 10 MG tablet Commonly known as: Lexapro Medication Adjustments for Surgery: Take morning of surgery with sip of water, no other fluids famotidine 40 MG tablet Commonly known as: Pepcid Medication Adjustments for Surgery: Take morning of surgery with sip of water, no other fluids ibuprofen 400 MG tablet Medication Adjustments for Surgery: Stop 1 day before surgery Tylenol 325 MG capsule Generic drug: acetaminophen Notes to patient: May take day of surgery if needed Additional Instructions: NO SOLID FOOD AFTER MIDNIGHT; NO BROTH, NO JELLO, NO DAIRY, NO ORANGE JUICE. DRINK CLEAR LIQUIDS UNTIL 2 HOURS BEFORE SURGERY You may take Tylenol for pain. NO Motrin, ibuprofen or Advil for 24 hours prior to surgery or longer if instructed by your surgeon. NO Aleve or Naprosyn for 3 days prior to surgery or longer if instructed by your surgeon. DO NOT take aspirin or aspirin containing products for 5 days before surgery, or longer if instructed by your surgeon. Follow any instructions given to you by Dr. Chavez; call her office with any questions. Shower with an antibacterial soap such as Dial or Safeguard before coming to the hospital. No makeup, lotion, powder, deodorant or body spays. No hair products. Remove all jewelry and leave it at home. Wear loose comfortable clothing to go home in. You may brush your teeth morning of surgery. Do not wear contacts day of surgery. No marijuana (THC), smoking or alcohol for 24 hours prior to surgery. Please arrange for a responsible adult to drive you home after your surgery and that there is a responsible adult with you for 24 hours post discharge. If you have specific questions, please call your surgeon. You will receive a call the day before your surgery to verify your arrival time and date. You will be asked to arrive at least two hours prior to your scheduled surgery time. We encourage you to write down any questions you may have for the surgeon, anesthesiologist, or other members of the surgical team and bring it with you the day of surgery. Please bring photo ID and insurance information. ELECTRICAL POWER ENGINEER AND PARKING IN THE MAIN DECK ARE FREE DAY OF SURGERY. PARKING IN THE DECK-- AFTER PARKING TAKE THE ELEVATOR TO LEVEL ONE AND TAKE THE BRIDGE TO THE HOSPITAL. GO TO THE RIGHT AND GO AROUND THE CORNER TO THE SAME DAY SURGERY DESK AND CHECK IN THERE. IF GOING IN THE MAIN ENTRANCE-- TURN LEFT AND GO DOWN THE [address] TO THE H ELEVATORS AND TAKE THEM TO ONE, LEFT OFF THE ELEVATOR AND GO AROUND TO THE SAME DAY DESK AND CHECK IN. Normal [facility] Vital Signs Date Time Vital Sign Value Performing Clinician Facility 01-27-2025 14:40-0400 Body height 138.5 cm Mikki Velazquez APRN.ZONING ENGINEER Work Phone: [facility] 01-27-2025 14:40-0400 Body mass index (BMI) [Ratio] 28.85 kg/m2 Mikki Velazquez APRN.ZONING ENGINEER Work Phone: [facility] 01-27-2025 14:40-0400 Body weight 55.34 kg Mikki Velazquez APRN.ZONING ENGINEER Work Phone: [facility] 01-27-2025 14:40-0400 Diastolic blood pressure 91 mm[Hg] Mikki Velazquez APRN.ZONING ENGINEER Work Phone: [facility] 01-27-2025 14:40-0400 Systolic blood pressure 131 mm[Hg] Mikki Velazquez APRN.ZONING ENGINEER Work Phone: [facility] 12-15-2024 15:15-0500 Diastolic blood pressure 85 mm[Hg] Marycruz Russell APRN.ZONING ENGINEER Work Phone: [facility] 12-15-2024 15:15-0500 Systolic blood pressure 131 mm[Hg] Marycruz Russell APRN.ZONING ENGINEER Work Phone: [facility] 12-15-2024 15:07-0500 Body mass index (BMI) [Ratio] 28.11 kg/m2 Marycruz Russell APRN.ZONING ENGINEER Work Phone: [facility] 12-15-2024 15:07-0500 Body weight 54.7 kg Marycruz Russell APRN.ZONING ENGINEER Work Phone: [facility] 12-15-2024 15:07-0500 Heart rate 71 /min Marycruz Russell APRN.ZONING ENGINEER Work Phone: [facility] 12-15-2024 15:07-0500 SaO2% (BldA) [Mass fraction] 98 % Marycruz Russell APRN.ZONING ENGINEER Work Phone: [facility] 06-16-2024 16:44-0400 Body height 139.5 cm Romy Greer MD Work Phone: [facility] 06-16-2024 16:44-0400 Body mass index (BMI) [Ratio] 28.26 kg/m2 Romy Greer MD Work Phone: [facility] 06-16-2024 16:44-0400 Body temperature 98.71 [degF] Romy Greer MD Work Phone: [facility] 06-16-2024 16:44-0400 Body weight 55 kg Romy Greer MD Work Phone: [facility] 06-16-2024 16:44-0400 Diastolic blood pressure 72 mm[Hg] Romy Greer MD Work Phone: [facility] 06-16-2024 16:44-0400 Heart rate 87 /min Romy Greer MD Work Phone: [facility] 06-16-2024 16:44-0400 Respiratory rate 18 /min Romy Greer MD Work Phone: [facility] 06-16-2024 16:44-0400 SaO2% (BldA) [Mass fraction] 98 % Romy Greer MD Work Phone: [facility] 06-16-2024 16:44-0400 Systolic blood pressure 122 mm[Hg] Romy Greer MD Work Phone: [facility] 12-18-2023 15:22-0500 Body weight 55.79 kg Marycruz Yvonne MANAGER OF DISTRIBUTION.ZONING ENGINEER Work Phone: [facility] 12-18-2023 15:22-0500 Diastolic blood pressure 98 mm[Hg] Marycruz Yvonne MANAGER OF DISTRIBUTION.ZONING ENGINEER Work Phone: [facility] 12-18-2023 15:22-0500 Heart rate 94 /min Marycruz Yvonne MANAGER OF DISTRIBUTION.ZONING ENGINEER Work Phone: [facility] 12-18-2023 15:22-0500 Respiratory rate 16 /min Marycruz Yvonne MANAGER OF DISTRIBUTION.ZONING ENGINEER Work Phone: [facility] 12-18-2023 15:22-0500 SaO2% (BldA) [Mass fraction] 97 % Marycruz Yvonne MANAGER OF DISTRIBUTION.ZONING ENGINEER Work Phone: [facility] 12-18-2023 15:22-0500 Systolic blood pressure 138 mm[Hg] Marycruz Russell APRN.ZONING ENGINEER Work Phone: [facility] 12-05-2023 15:27-0500 Body weight 56.43 kg Mikki Velazquez APRN.ZONING ENGINEER Work Phone: [facility] 12-05-2023 15:27-0500 Diastolic blood pressure 70 mm[Hg] Mikki Velazquez APRN.ZONING ENGINEER Work Phone: [facility] 12-05-2023 15:27-0500 Systolic blood pressure 108 mm[Hg] Mikki Velazquez APRN.ZONING ENGINEER Work Phone: [facility] 06-11-2023 15:55-0400 Diastolic blood pressure 62 mm[Hg] Romy Greer MD Work Phone: [facility] 06-11-2023 15:55-0400 Systolic blood pressure 112 mm[Hg] Romy Greer MD Work Phone: [facility] 02-25-2023 15:55-0400 Body mass index (BMI) [Ratio] 32.5 kg/m2 [facility] 02-25-2023 15:55-0400 Body weight 66 kg [facility] 02-25-2023 14:03-0400 Body height 142.24 cm [facility] 02-25-2023 14:03-0400 Body temperature 97.6 [degF] [facility] 02-25-2023 14:03-0400 Diastolic blood pressure 109 mm[Hg] [facility] 02-25-2023 14:03-0400 Heart rate 110 /min [facility] 02-25-2023 14:03-0400 Respiratory rate 20 /min [facility] 02-25-2023 14:03-0400 SaO2% (BldA) [Mass fraction] 99 % [facility] 02-25-2023 14:03-0400 Systolic blood pressure 164 mm[Hg] [facility] 01-23-2023 15:48-0400 Body temperature 98.01 [degF] Romy Greer MD Work Phone: [facility] 01-23-2023 15:48-0400 Body weight 58.51 kg Romy Greer MD Work Phone: [facility] 01-23-2023 15:48-0400 Diastolic blood pressure 68 mm[Hg] Romy Greer MD Work Phone: [facility] 01-23-2023 15:48-0400 Heart rate 109 /min Romy Greer MD Work Phone: [facility] 01-23-2023 15:48-0400 Respiratory rate 18 /min Romy Greer MD Work Phone: [facility] 01-23-2023 15:48-0400 SaO2% (BldA) [Mass fraction] 96 % Romy Greer MD Work Phone: [facility] 01-23-2023 15:48-0400 Systolic blood pressure 122 mm[Hg] Romy Greer MD Work Phone: [facility] 01-22-2023 15:16-0400 Body temperature 98.8 [degF] Amando Pendlebury MANAGER OF DISTRIBUTION.ZONING ENGINEER Work Phone: [facility] 01-22-2023 15:16-0400 Body weight 59.42 kg Amando Pendlebury MANAGER OF DISTRIBUTION.ZONING ENGINEER Work Phone: [facility] 01-22-2023 15:16-0400 Diastolic blood pressure 72 mm[Hg] Amando Pendlebury MANAGER OF DISTRIBUTION.ZONING ENGINEER Work Phone: [facility] 01-22-2023 15:16-0400 Heart rate 102 /min Amando Pendlebury MANAGER OF DISTRIBUTION.ZONING ENGINEER Work Phone: [facility] 01-22-2023 15:16-0400 Respiratory rate 20 /min Amando Pendlebury MANAGER OF DISTRIBUTION.ZONING ENGINEER Work Phone: [facility] 01-22-2023 15:16-0400 SaO2% (BldA) [Mass fraction] 95 % Amando Pendlebury MANAGER OF DISTRIBUTION.ZONING ENGINEER Work Phone: [facility] 01-22-2023 15:16-0400 Systolic blood pressure 124 mm[Hg] Amando Angulo APRN.ZONING ENGINEER Work Phone: [facility] 11-09-2022 10:00-0500 Diastolic blood pressure 64 mm[Hg] Laurie Chavez DDS Work Phone: [facility] 11-09-2022 10:00-0500 Heart rate 72 /min Laurie Chavez DDS Work Phone: [facility] 11-09-2022 10:00-0500 Respiratory rate 16 /min Laurie Chavez DDS Work Phone: [facility] 11-09-2022 10:00-0500 SaO2% (BldA) [Mass fraction] 98 % Laurie Chavez DDS Work Phone: [facility] 11-09-2022 10:00-0500 Systolic blood pressure 104 mm[Hg] Laurie Chavarriaowski DDS Work Phone: [facility] 11-09-2022 09:31-0500 Body temperature 97.2 [degF] Laurie Chavez DDS Work Phone: [facility] 11-09-2022 05:45-0500 Body height 137.2 cm Laurie Chavez DDS Work Phone: [facility] 11-09-2022 05:45-0500 Body mass index (BMI) [Ratio] 34.96 kg/m2 Laurie Chavez DDS Work Phone: [facility] 11-09-2022 05:45-0500 Body weight 65.77 kg Laurie Chavez DDS Work Phone: [facility] Encounters Encounter Date Encounter Type Care Provider Facility Start: 06-22-2025 End: 06-22-2025 ambulatory ROMY GREER Facility:[facility] Start: 01-28-2025 End: 03-30-2025 Follow-up encounter Mikki Velazquez APRN.ZONING ENGINEER Work Phone: OB/Gynecology Start: 01-27-2025 End: 01-27-2025 Patient encounter procedure Mikki Velazquez APRN.CNP Work Phone: OB/Gynecology Comment on above: Encounter for gyneco logical examination (general) (routine) without abnormal findings (Primary Dx); Encounter for screening mammogram for breast cancer Start: 01-27-2025 End: 01-27-2025 Patient encounter status Mikki Velazquez APRN.ZONING ENGINEER Work Phone: [facility] Start: 01-27-2025 Encounter for gynecological examination (general) (routine) without abnormal findings MIKKI VELAZQUEZ [facility] Start: 01-27-2025 End: 01-27-2025 ambulatory MIKKI VELAZQUEZ Facility:[facility] Start: 01-27-2025 End: 01-27-2025 Subsequent hospital visit by physician Screen Mammo [facility] Start: 12-29-2024 End: 12-29-2024 Telephone encounter Mikki Velazquez APRN.CNP Work Phone: OB/Gynecology Comment on above: Orders (Mammo Screen W AJIT) Start: 12-15-2024 End: 12-15-2024 ambulatory MARYCRUZ RUSSELL Facility:[facility] Start: 12-15-2024 End: 12-15-2024 Patient encounter procedure Marycruz Russell APRN.CNP Work Phone: [facility] [place] Comment on above: Infantile cerebral p alsy (HCC) (Primary Dx); Intellectual disability; Abnormal gait; Swallowing problem; Dyslipidemia; IFG (impaired fasting glucose) Start: 11-02-2024 End: 11-03-2024 Refill Romy Greer MD Work Phone: [facility] [place] Comment on above: Refill Request Start: 06-16-2024 End: 06-16-2024 Office outpatient visit 25 minutes Romy Greer MD Work Phone: [facility] [place] Comment on above: Infantile cerebral p alsy (HCC) (Primary Dx); Dyslipidemia; Dysmetabolic syndrome; Bee sting allergy; Screening for depression; Encounter for immunization; Screening for colon cancer; Encounter for long-term current use of medication Start: 01-23-2024 Documentation procedure Mammog fatimah Coordinator [facility] Start: 01-23-2024 Letter encounter Mammography Coordinator [facility] Department Start: 01-22-2024 End: 01-22-2024 Patient encounter status Screen [facility]str [facility] Start: 01-22-2024 End: 01-22-2024 Subsequent hospital visit by physician Screen Mammo [facility] Start: 01-02-2024 Refill Romy cox MD Work Phone: [facility] [place] Comment on above: Refill Request Start: 12-22-2023 Refill Marycruz BESTZONING ENGINEER Work Phone: [facility] Comment on above: Refill Request Start: 12-18-2023 End: 12-18-2023 Patient encounter procedure Marycruz Russell APRN.ZONING ENGINEER Work Phone: [facility] [place] Comment on above: Intellectual disabil ity (Primary Dx); Dysmetabolic syndrome; Dyslipidemia; IFG (impaired fasting glucose); Infantile cerebral palsy (HCC); Abnormal gait; Swallowing problem; Rash and nonspecific skin eruption; Encounter for therapeutic drug monitoring Start: 12-05-2023 End: 12-05-2023 Patient encounter procedure Mikki Velazquez APRN.ZONING ENGINEER Work Phone: OB/Gynecology Comment on above: Encounter for routin e gynecologic examination in Medicare patient (Primary Dx); Screening for cervical cancer; Encounter for screening mammogram for breast cancer; Heterogeneously dense tissue of both breasts on mammography Start: 12-05-2023 End: 12-05-2023 Patient encounter status Mikki Velazquez APRN.ZONING ENGINEER Work Phone: [facility] Work Phone: Start: 07-15-2023 Refill Romy cox MD Work Phone: [facility] Comment on above: Refill Request Start: 06-11-2023 End: 06-11-2023 Office outpatient visit 25 minutes Romy Greer MD Work Phone: [facility] [place] Comment on above: Intellectual disabil ity (Primary Dx); Dyslipidemia; Abnormal gait; Swallowing problem; Dysmetabolic syndrome; Nystagmus Start: 05-22-2023 End: 05-22-2023 ambulatory Romy Greer Facility:[facility] Start: 05-13-2023 End: 05-13-2023 Patient encounter procedure Rosa Isela Barbour MD Work Phone: Ophthalmology Comment on above: Other optic atrophy, bilateral (Primary Dx); Infantile cerebral palsy (HCC); Nystagmus; Myopia of both eyes; Regular astigmatism of both eyes Start: 04-23-2023 End: 04-23-2023 ambulatory Marycruz Russell EQUIPMENT WORKER [facility] Work Phone: Start: 04-23-2023 End: 04-23-2023 Patient encounter procedure [facility] Work Phone: Start: 04-09-2023 Telephone encounter Romy chatterjee MD Work Phone: [facility] [place] Comment on above: Orders Start: 04-01-2023 Telephone encounter None (Historical ) Ophthalmology Comment on above: Appointment Start: 03-28-2023 Telephone encounter None (Historical ) Ophthalmology Comment on above: Received Outside Med ical Records Start: 02-25-2023 End: 02-25-2023 Emergency department patient visit Ariel Lakshmi Facility:[facility] Start: 02-25-2023 End: 02-25-2023 Emergency department patient visit [facility] Start: 01-28-2023 Refill Romy cox MD Work Phone: [facility] [place] Comment on above: Refill Request Start: 01-23-2023 End: 01-23-2023 Office outpatient visit 15 minutes Romy Greer MD Work Phone: [facility] [place] Comment on above: Acute non-recurrent maxillary sinusitis (Primary Dx); Antibiotic-induced yeast infection Start: 01-22-2023 End: 01-22-2023 Office outpatient visit 15 minutes Amando Angulo MANAGER OF DISTRIBUTION.ZONING ENGINEER Work Phone: [facility] Comment on above: Viral illness (Prima ry Dx); Suspected COVID-19 virus infection Start: 01-21-2023 Telephone encounter Marycruz Cleav er MANAGER OF DISTRIBUTION.ZONING ENGINEER Work Phone: [facility] [place] Comment on above: Results Start: 01-17-2023 End: 01-17-2023 Subsequent hospital visit by physician Screen Mammo [facility] Start: 12-18-2022 Refill Romy cox MD Work Phone: [facility] [place] Comment on above: Refill Request (need s new script) Start: 11-09-2022 End: 11-09-2022 ambulatory [facility] Start: 11-09-2022 End: 11-09-2022 Subsequent hospital visit by physician Laurie Chavez DDS Work Phone: [facility] Comment on above: Pain (Primary Dx) Start: 11-07-2022 Refill Romy cox MD Work Phone: [facility] [place] Comment on above: Refill Request Start: 11-02-2022 End: 11-02-2022 ambulatory [facility] Start: 08-15-2022 Refill Romy cox MD Work Phone: [facility] [place] Comment on above: Refill Request Start: 03-06-2022 End: 03-06-2022 Nursing evaluation of patient and report Mi Nurse Work Phone: [facility] [place] Comment on above: Need for vaccination (Primary Dx) Start: 01-29-2022 Telephone encounter Brenda Quevedo MD Work Phone: OB/Gynecology Comment on above: Orders Start: 01-27-2019 End: 01-27-2019 ambulatory UNKNOWN PROVIDER Facility:[facility] Start: 12-18-2018 Evaluation and management of inpatient Benny NaheedNick Norm Facility:[facility] Procedures Date Procedure Procedure Detail Performing Clinician Start: 06-25-2024 Blood occult fecal h gb deter ia qual feces 1-3 Romy Greer MD Work Phone: Start: 06-16-2024 Adult depression scr eening assessment Romy Greer MD Work Phone: Start: 05-26-2024 Lipid 1996 panel - S lauren or Plasma Romy Greer MD Work Phone: Start: 05-29-2023 Lipid 1996 panel - S lauren or Plasma Marycruz Harrisr MANAGER OF DISTRIBUTION.ZONING ENGINEER Work Phone: Start: 04-23-2023 Videoswallow Start: 02-25-2023 CT cervical spine wi thout contrast Start: 02-25-2023 CT of face Start: 02-25-2023 CT of head without contrast Start: 01-22-2023 COVID WITH FLUA+B, ROUTINE Amando Angulo MANAGER OF DISTRIBUTION.ZONING ENGINEER Work Phone: Start: 01-17-2023 End: 01-17-2023 Mammography Romy Greer MD Work Phone: Start: 11-09-2022 Urine test visual color cmprsn meths Jung Garnica DO Work Phone: Start: 03-06-2022 [employer] COVI D-19 VACCINE, AGE 12+ YR (SANCHEZ TOP) Romy Greer MD Work Phone: Start: 11-23-2021 Mammography Brenda John Quevedo MD Work Phone: Start: 04-28-2021 Adult depression scr eening assessment Brenda Quevedo MD Work Phone: Plan of Treatment Date Care Activity Detail Author Start: 05-26-2029 Lipid panel Lipid Screening [facility] Start: 2028 Zoster Vaccines (1 o f 2) Zoster Vaccines (1 of 2) [facility] Start: 12-05-2028 Screening for malign ant neoplasm of cervix [facility] Start: 05-29-2028 Lipid panel Lipid Screening [facility] Start: 05-26-2027 Diabetes Screening Diabetes Screenin g [facility] Start: 12-05-2026 Screening for malign ant neoplasm of cervix Cervical Cancer Screening [facility] Start: 12-03-2026 DTaP/Tdap/Td Vaccine s (3 - Td or Tdap) DTaP/Tdap/Td Vaccines (3 - Td or Tdap) [facility] Start: 12-03-2026 Urine microalbumin profile [facility] Start: 10-20-2026 TWO PNEUMOVAX 5 YEAR S APART PRIOR TO AGE 65 (#2) TWO PNEUMOVAX 5 YEARS APART PRIOR TO AGE 65 (#2) [facility] Start: 05-29-2026 Diabetes Screening Diabetes Screenin g [facility] Start: 01-27-2026 Screening for malign ant neoplasm of breast Mammogram Screening [facility] Start: 06-25-2025 Screening for malign ant neoplasm of colon [facility] Start: 06-22-2025 End: 06-22-2025 Patient encounter procedure 06/22/2025 5:00 PM EDT Office Visit [facility] [address] [place], [place] [id number] Romy Greer MD [address] [place], [place] [id number] Yearly [facility] [place] Comment on above: Yearly Start: 06-16-2025 Depression Screening Depression Scre ening [facility] Start: 06-16-2025 Hepatitis B Vaccine (1 of 3 - 19+ 3-dose series) Hepatitis B Vaccine (1 of 3 - 19+ 3-dose series) [facility] Comment on above: Postponed from 12/24 (Declined at this time) Start: 05-16-2025 End: 08-15-2025 CBC panel - Blood by Automated count COMPLETE BLOOD COUNT Lab Routine Dysmetabolic syndrome Encounter for long-term current use of medication Expected: 05/16/2025 (Approximate), Expires: 08/15/2025 [facility] Comment on above: Expected: 05/16/2025 (Approximate), Expires: 08/15/2025 Start: 05-16-2025 End: 08-15-2025 Comprehensive metabolic 2000 panel - Serum or Plasma COMPREHENSIVE METABOLIC PANEL Lab Routine Dysmetabolic syndrome Encounter for long-term current use of medication Expected: 05/16/2025 (Approximate), Expires: 08/15/2025 [facility] Comment on above: Expected: 05/16/2025 (Approximate), Expires: 08/15/2025 Start: 05-16-2025 End: 08-15-2025 Hemoglobin A1c in Blood HEMOGLOBIN A1C Lab Routine Dysmetabolic syndrome Encounter for long-term current use of medication Expected: 05/16/2025 (Approximate), Expires: 08/15/2025 [facility] Work Phone: Comment on above: Expected: 05/16/2025 (Approximate), Expires: 08/15/2025 Start: 05-16-2025 End: 08-15-2025 Lipid 1996 panel - Serum or Plasma LIPID PANEL BASIC Lab Routine Dyslipidemia Dysmetabolic syndrome Encounter for long-term current use of medication Expected: 05/16/2025 (Approximate), Expires: 08/15/2025 [facility] Comment on above: Expected: 05/16/2025 (Approximate), Expires: 08/15/2025 Start: 01-27-2025 End: 01-27-2025 Patient encounter procedure Mammogram Comment on above: screen w ajit annual Start: 01-21-2025 Screening for malign ant neoplasm of breast Mammogram Screening [facility] Start: 12-16-2024 End: 12-16-2024 Patient encounter procedure 12/16/2024 3:20 PM EST Office Visit Internal Medicine [address] [address] Marycruz Russell APRN.ZONING ENGINEER [address] [place] [phone] physical Internal Medicine [facility] Comment on above: physical Start: 12-15-2024 End: 12-15-2024 Patient encounter procedure 12/15/2024 3:40 PM EST Office Visit Internal Medicine [address] [id number] Marycruz Russell APRN.ZONING ENGINEER [address] [place] [phone] 6 month follow up Internal Medicine [facility] Comment on above: 6 month follow up Start: 08-13-2024 PAP TESTING PAP TESTING [facility] Start: 08-13-2024 Screening for malign ant neoplasm of cervix Pap Testing [facility] Start: 06-14-2024 Covid-19 Vaccine () Covid-19 Vaccine () [facility] Start: 06-14-2024 Influenza vaccination Influenz a Vaccine (Season Ended) [facility] Start: 06-11-2024 HEPATITIS B (1 of 3 - 3-dose series) HEPATITIS B (1 of 3 - 3-dose series) [facility] Comment on above: Postponed from 12/24 (Declined at this time) Start: 06-11-2024 Hepatitis B Vaccine (1 of 3 - 19+ 3-dose series) Hepatitis B Vaccine (1 of 3 - 19+ 3-dose series) [facility] Comment on above: Postponed from 12/24 (Declined at this time) Start: 06-11-2024 Hepatitis B Vaccine (1 of 3 - 3-dose series) Hepatitis B Vaccine (1 of 3 - 3-dose series) [facility] Comment on above: Postponed from 12/24 (Declined at this time) Start: 06-11-2024 HPV TESTING HPV TESTING [facility] Comment on above: Postponed from 12/24 (Declined at this time) Start: 06-11-2024 Screening for malign ant neoplasm of cervix HPV Testing [facility] Comment on above: Postponed from 12/24 (Declined at this time) Start: 06-08-2024 End: 09-07-2024 CBC W Auto Differential panel - Blood CBC + DIFF Lab Routine Encounter for therapeutic drug monitoring Expected: 06/08/2024, Expires: 09/07/2024 [facility] Work Phone: Comment on above: Expected: 06/08/2024 , Expires: 09/07/2024 Start: 06-08-2024 End: 09-07-2024 Comprehensive metabolic 2000 panel - Serum or Plasma COMP METABOLIC PANEL Lab Routine Encounter for therapeutic drug monitoring Expected: 06/08/2024, Expires: 09/07/2024 [facility] Work Phone: Comment on above: Expected: 06/08/2024 , Expires: 09/07/2024 Start: 06-08-2024 End: 09-07-2024 Hemoglobin A1c in Blood HGB A1C Lab Routine Dysmetabolic syndrome IFG (impaired fasting glucose) Expected: 06/08/2024, Expires: 09/07/2024 [facility] Work Phone: Comment on above: Expected: 06/08/2024 , Expires: 09/07/2024 Start: 06-08-2024 End: 09-07-2024 Lipid 1996 panel - Serum or Plasma LIPID PANEL BASIC Lab Routine Dysmetabolic syndrome Dyslipidemia Expected: 06/08/2024, Expires: 09/07/2024 [facility] Work Phone: Comment on above: Expected: 06/08/2024 , Expires: 09/07/2024 Start: 04-12-2024 Influenza vaccination Influenza Vacc ine (#1) [facility] Comment on above: Postponed from 06/14 (Declined at this time) Start: 01-18-2024 Mammography [facility] Start: 01-18-2024 Screening for malign ant neoplasm of breast Mammogram Screening [facility] Start: 12-25-2023 Screening for malign ant neoplasm of colon [facility] Start: 06-14-2023 Covid-19 Vaccine ( season) Covid-19 Vaccine () [facility] Start: 06-14-[address] [facility] Start: 11-23-2022 Mammography MAMMOGRAM [facility] Start: 10-14-2022 DEPRESSION ASSESSMENT DEPRESSION ASS ESSMENT [facility] Start: 06-14-[address] [facility] Start: 05-01-2022 COVID-19 VACCINE (4 - Booster for Moderna series) COVID-19 VACCINE (4 - Booster for Moderna series) [facility] Start: 04-28-2022 Adult depression screening assessment DEPRESSION SCREENING [facility] Start: 10-14-2021 DEPRESSION ASSESSMENT DEPRESSION ASS ESSMENT [facility] Start: 06-13-2021 COVID-19 VACCINE (3 - Booster for Moderna series) COVID-19 VACCINE (3 - Booster for Moderna series) [facility] Start: 03-08-2021 COVID-19 Vaccine (3 - Booster for Moderna series) COVID-19 Vaccine (3 - Booster for Moderna series) [facility] Start: 2018 Screening for malign ant neoplasm of breast Mammogram [facility] Start: 11-29-2009 MMR Vaccines (1 of 1 - Standard series) MMR Vaccines (1 of 1 - Standard series) [facility] Start: 2008 HPV TESTING HPV TESTING [facility] Start: 2008 Screening for malign ant neoplasm of cervix [facility] Start: 12-25-1999 Screening for malign ant neoplasm of cervix Pap Smear [facility] Start: 12-12-1998 Medicare Annual Wellness Visit Medicare Annual Wellness Visit [facility] Start: 1996 Hepatitis C screening Hepatitis C Sc reening [facility] Start: 1978 HEPATITIS B (1 of 3 - 3-dose series) HEPATITIS B (1 of 3 - 3-dose series) [facility] Start: 1978 Hepatitis B Vaccines (1 of 3 - 3-dose series) Hepatitis B Vaccines (1 of 3 - 3-dose series) [facility] Start: 1978 HIV screening HIV Screening [facility] End: 01-03-2025 DBT Breast - bilateral screening CHRISTIAN SCREENING W AJIT Radiology Routine Encounter for routine gynecologic examination in Medicare patient Encounter for screening mammogram for breast cancer Heterogeneously dense tissue of both breasts on mammography 1 Occurrences starting 12/05/2023 until 01/03/2025 [facility] Work Phone: Comment on above: 1 Occurrences starti ng 12/05/2023 until 01/03/2025 End: 01-28-2026 DBT Breast - bilateral screening CHRISTIAN SCREENING W AJIT Radiology Routine Encounter for screening mammogram for breast cancer 1 Occurrences starting 12/29/2024 until 01/28/2026 [facility] Work Phone: Comment on above: 1 Occurrences starti ng 12/29/2024 until 01/28/2026 End: 02-26-2026 DBT Breast - bilateral screening CHRISTIAN SCREENING W AJIT Radiology Routine Encounter for gynecological examination (general) (routine) without abnormal findings Encounter for screening mammogram for breast cancer 1 Occurrences starting 01/27/2025 until 02/26/2026 [facility] Work Phone: Comment on above: 1 Occurrences starti ng 01/27/2025 until 02/26/2026 End: 01-22-2024 MG Breast Screening [facility] Work Phone: Comment on above: ONCE for 1 Occurrenc es starting 01/22/2024 until 01/22/2024 End: 01-27-2025 MG Breast Screening [facility] Work Phone: Comment on above: ONCE for 1 Occurrenc es starting 01/27/2025 until 01/27/2025 PAP TEST PAP TEST Lab Jose emma Encounter for routine gynecologic examination in Medicare patient Screening for cervical cancer 12/05/2023 3:50 PM EST [facility] Work Phone: Patient Education Bruises (Contu sions) ED Facial Fracture [facility] Work Phone: Patient referral [facility] Work Phone: [facility] Immunizations Immunization Date Immunization Notes Care Provider [facility] 06-16-2024 influenza, seasonal, injectable Romy Greer MD Work Phone: [facility] 11-14-2022 COVID-19 booster vaccine, age 12+ yr, bivalent (PFIZER-BIONTECH) Romy Greer MD Work Phone: [facility] 11-14-2022 influenza, injectabl e, quadrivalent, contains preservative Romy Greer MD Work Phone: [facility] 11-14-2022 influenza virus vacc ine, unspecified formulation Romy Greer MD Work Phone: [facility] 03-06-2022 COVID-19 vaccine, ag e 12+ yr (PFIZER-BIONTECH - SANCHEZ TOP) Ok Nurse Work Phone: [facility] Work Phone: 10-20-2021 influenza, injectabl e, quadrivalent, contains preservative Brenda Quevdeo MD Work Phone: [facility] 10-20-2021 pneumococcal polysaccharide vaccine, 23 valent Brenda Quevedo MD Work Phone: [facility] 01-07-2022 influenza virus vacc ine, unspecified formulation Laurie Chavez DDS Work Phone: [facility] 04-28-2021 pneumococcal conjuga te vaccine, 13 valent Brenda Quevedo MD Work Phone: [facility] Work Phone: 01-11-2021 COVID-19 vaccine, fu ll dose (MODERNA) Brenda Quevedo MD Work Phone: [facility] Work Phone: 12-14-2020 COVID-19 vaccine, fu ll dose (MODERNA) Brenda Quevedo MD Work Phone: [facility] Work Phone: 07-30-2019 influenza, injectabl e, quadrivalent, contains preservative Brenda Quevedo MD Work Phone: [facility] Work Phone: 07-09-2018 influenza, injectabl e, quadrivalent, contains preservative Brenda Quevedo MD Work Phone: [facility] 12-03-2017 influenza, injectabl e, quadrivalent, contains preservative Brenda Quevedo MD Work Phone: [facility] Work Phone: 12-03-2016 tetanus and diphther ia toxoids, adsorbed, preservative free, for adult use (5 Lf of tetanus toxoid and 2 Lf of diphtheria toxoid) Brenda Quevedo MD Work Phone: [facility] 09-25-2016 influenza, seasonal, injectable Brenda Quevedo MD Work Phone: [facility] 09-25-2016 influenza, seasonal, injectable, preservative free Brenda Quevedo MD Work Phone: [facility] Work Phone: 08-18-2015 influenza, injectabl e, quadrivalent, contains preservative Brenda Neyhart Quevedo MD Work Phone: [facility] 08-23-2014 influenza, seasonal, injectable Brenda Quevedo MD Work Phone: [facility] 07-29-2012 influenza virus vacc ine, unspecified formulation Brenda Quevedo MD Work Phone: [facility] 11-01-2009 novel influenza-H1N1 -09, preservative-free, injectable Brenda Quevedo MD Work Phone: [facility] Work Phone: 08-19-2008 influenza virus vacc ine, unspecified formulation Brenda Quevedo MD Work Phone: [facility] 12-10-2006 tetanus toxoid, redu shai diphtheria toxoid, and acellular pertussis vaccine, adsorbed Brenda Quevedo MD Work Phone: [facility] 09-24-2006 influenza virus vacc ine, unspecified formulation Brenda Quevedo MD Work Phone: [facility] Work Phone: 08-20-2005 influenza virus vacc ine, unspecified formulation Brenda Quevedo MD Work Phone: [facility] Work Phone: Payers Date Payer Category Payer Self-pay [id number] 2016 Medicare MEDICARE MEDICAR E A AND B [id number] 2016-Present [phone] [address] [address] [place] [address] Medicare [id number] 2012 Medicaid MEDICAID [facility] MEDICAID [id number] 2012-Present [phone] [address] [place] [address] Medicaid [id number] 2012 Medicaid [id number] 2010 Medicaid [id number] 1998 Medicare [id number] 1998 Medicare [id number] 1978 Unknown [id number] Unknown [id number] Unknown [id number] Social History Date Type Detail Facility Start: 10-06-2017 End: 01-22-2023 Tobacco smoking status NHIS Never smoked tobacco [facility] Work Phone: Start: 11-03-2021 End: 01-27-2025 Alcohol intake Current non-drinker of alcohol (finding) [facility] Start: 1980 Sex Assigned At Not on file [facility] Start: 02-12-2022 End: 11-09-2022 Exposure to SARS-CoV-2 (event) Not sure [facility] Work Phone: Start: 10-06-2017 End: 01-22-2023 Tobacco use and exposure Former smokeless tobacco user [facility] Start: 02-25-2023 Tobacco smoking stat us CTIS Unknown if ever smoked [facility] Start: 06-03-2019 - [facility] Start: 1980 Sex Assigned At Female [facility] Start: 03-05-2023 End: 05-13-2023 History of Social function [facility] Start: 03-05-2023 End: 05-13-2023 Tobacco use panel [facility] Adult Depression Screening Assessment 0 [facility] Start: 11-02-2022 Tobacco use and exposure Smokeless tobacco non-user [facility] Start: 11-09-2022 Alcohol intake Lifetime non-d dalia (finding) [facility] NEGATED: Highlighted row [facility] Functional Status Date Assessment Result Facility 05-12-2015 Are you deaf, or do you have serious difficulty hearing No 05/12/2015 11:56 AM GISELAT Patricia Hardin LPN No [facility] 05-12-2015 Are you blind, or do you have serious difficulty seeing, even when wearing glasses No 05/12/2015 11:56 AM GISELAT Patricia Hardin LPN No [facility] 05-12-2015 Do you have serious difficulty walking or climbing stairs No 05/12/2015 11:56 AM GISELAT Patricia Hardin LPN No [facility] 05-12-2015 Do you have difficul ty dressing or bathing No 05/12/2015 11:56 AM EDT Patricia Hardin LPN No [facility] 05-12-2015 Because of a physica l, mental, or emotional condition, do you have difficulty doing errands alone such as visiting a physician's office or shopping Yes 05/12/2015 11:56 AM GISELAT Patricia Hardin LPN Yes [facility] Mental Status Date Assessment Result Facility 05-12-2015 Because of a physica l, mental, or emotional condition, do you have serious difficulty concentrating, remembering, or making decisions Yes 05/12/2015 11:56 AM Patricia Sams LPN Yes [facility] Clinical Notes 02-01-2022 to 01-27-2025 Mikki Velazquez APRN.ZONING ENGINEER - 01/27/2025 2:37 PM EDHelder Calero Mammo Tech - 01/27/2025 1:50 PM EDTAddendum Note - Helder Rodriguez Mammo Tech - 01/27/2025 1:50 PM EDTPatient Instructions Note Date & Type Note Facility 01-27-2025 Note HNO ID: [id number] Author: MIKKI VELAZQUEZ APRN.MAYLIN Service: ? Author Type: Nurse Practitioner Type: Progress Notes Filed: 01/27/2025 15:13 Note Text: Group Worker offered: Patient accepts, visit chaperoned by caregiver Nayeli Webb is a 44 year old who presents for an annual gynecologic exam without complaints. Menses: cycles every 25-30 days and 4-5 days of flow. Contraception: none HPV vaccine: N/A Last Pap: 12/05/2023 normal HPV: N/A History of abnormal pap: No Last mammogram: today, pending Sexually active: No Documentation from previous visit of 12/05/2023 was copied and pasted, documentation has been reviewed and edited as necessary for today's visit. OB History Gravida0 Para0 Term0 Preterm0 AB0 Living0 SAB0 IAB0 Ectopic0 Multiple0 Live Births0 Adopted: Yes Problem Relation Age of Onset other (Adopted Status - Unknown) Other SOCIAL HISTORY Social History Tobacco Use Smoking status: Never Smokeless tobacco: Former Vaping Use Vaping status: Never Used Substance Use Topics Alcohol use: No Drug use: No REVIEW OF SYSTEMS Abdomen: No abdominal pain, nausea, vomiting, diarrhea, or constipation. No bloating, early satiety, indigestion, or increased flatulence. Bladder: No dysuria, gross hematuria, urinary frequency, urinary urgency, or incontinence.Wears pad but only voids in pad if in a hurry. Breast: No breast lumps, nipple d/c, overlying skin changes, redness or skin retraction. Allergies and current medication updated:Yes SENSITIVE EXAM: The sensitive examination was discussed with the Patient or Patient's Authorized Page Designer. As applicable, any other physician, advance practice provider, medical student, or other health professional student that will be observing or involved in the sensitive examination for educational or training purposes was discussed with the Patient or Authorized Page Designer. The Patient or Authorized Page Designer has agreed to proceed with the sensitive examination. (Sensitive examination includes inspection and/or palpation of the breasts, pelvis, prostate and anorectal regions). EXAM: BP 131/91 Ht 4' 6.528 (1.39m) Wt 122 lb (55.3kg) LMP 01/06/2025 BMI 28.85 kg/(m2). GENERAL: pleasant, female in no apparent distress HEENT: Normocephalic, atraumatic, mucus membranes moist, and no lesions NECK: Supple, full range of motion, no adenopathy, and thyroid normal DERMATOLOGY: Normal, without lesions, non-icteric, and non-hirsute BREAST: soft, non-tender, symmetric, no dominant mass, normal nipple-areolar complex, no lymphadenopathy, and no nipple discharge CHEST: Normal inspiratory effort ABDOMEN: soft, non-tender, and no masses PELVIC: external genitalia normal, normal Bartholin's glands, urethra, [place]'s glands, no vulvar lesions, no cervical lesions, good vaginal support, physiologic discharge present, normal appearing perineal body and perianal region BIMANUAL: uterus normal size, shape and consistency, no adnexal masses, and non-tender RECTOVAGINAL: deferred. NEURO: alert and oriented EXTREMITIES: normal per pt ASSESSMENT/PLAN: 1) Health maintenance: Pap/HPV up to date. Mammogram up to date and ordered Nutrition, exercise and routine health maintenance exams reviewed. 2) Contraception: none. Not sexually active 3) Follow up one year or sooner as needed Mikki Velazquez APRN.[facility] 01-27-2025 History of Presen t illness Narrative Group Worker offered: Patient accepts, visit chaperoned by caregiver Nayeli Webb is a 44 year old who presents for an annual gynecologic exam without complaints. Menses: cycles every 25-30 days and 4-5 days of flow. Contraception: none HPV vaccine: N/A Last Pap: 12/05/2023 normal HPV: N/A History of abnormal pap: No Last mammogram: today, pending Sexually active: No Documentation from previous visit of 12/05/2023 was copied and pasted, documentation has been reviewed and edited as necessary for today's visit. OB History Gravida0 Para0 Term0 Preterm0 AB0 Living0 SAB0 IAB0 Ectopic0 Multiple0 Live Births0 Adopted: Yes Problem Relation Age of Onset other (Adopted Status - Unknown) Other SOCIAL HISTORY Social History Tobacco Use Smoking status: Never Smokeless tobacco: Former Vaping Use Vaping status: Never Used Substance Use Topics Alcohol use: No Drug use: No REVIEW OF SYSTEMS Abdomen: No abdominal pain, nausea, vomiting, diarrhea, or constipation. No bloating, early satiety, indigestion, or increased flatulence. Bladder: No dysuria, gross hematuria, urinary frequency, urinary urgency, or incontinence.Wears pad but only voids in pad if in a hurry. Breast: No breast lumps, nipple d/c, overlying skin changes, redness or skin retraction. Allergies and current medication updated:Yes SENSITIVE EXAM: The sensitive examination was discussed with the Patient or Patient's Authorized Page Designer. As applicable, any other physician, advance practice provider, medical student, or other health professional student that will be observing or involved in the sensitive examination for educational or training purposes was discussed with the Patient or Authorized Page Designer. The Patient or Authorized Page Designer has agreed to proceed with the sensitive examination. (Sensitive examination includes inspection and/or palpation of the breasts, pelvis, prostate and anorectal regions). EXAM: BP 131/91 Ht 4' 6.528 (1.39m) Wt 122 lb (55.3kg) LMP 01/06/2025 BMI 28.85 kg/(m^2). GENERAL: pleasant, female in no apparent distress HEENT: Normocephalic, atraumatic, mucus membranes moist, and no lesions NECK: Supple, full range of motion, no adenopathy, and thyroid normal DERMATOLOGY: Normal, without lesions, non-icteric, and non-hirsute BREAST: soft, non-tender, symmetric, no dominant mass, normal nipple-areolar complex, no lymphadenopathy, and no nipple discharge CHEST: Normal inspiratory effort ABDOMEN: soft, non-tender, and no masses PELVIC: external genitalia normal, normal Bartholin's glands, urethra, [place]'s glands, no vulvar lesions, no cervical lesions, good vaginal support, physiologic discharge present, normal appearing perineal body and perianal region BIMANUAL: uterus normal size, shape and consistency, no adnexal masses, and non-tender RECTOVAGINAL: deferred. NEURO: alert and oriented EXTREMITIES: normal per pt ASSESSMENT/PLAN: 1) Health maintenance: Pap/HPV up to date. Mammogram up to date and ordered Nutrition, exercise and routine health maintenance exams reviewed. 2) Contraception: none. Not sexually active 3) Follow up one year or sooner as needed Mikki Velazquez APRN.ZONING ENGINEER documented in this encounter [facility] 01-27-2025 History of Presen t illness Narrative Radiology Service Progress Note PATIENT NAME: Ratna Ray DATE OF SERVICE: January 27, 2025 TIME: 2:36 PM PATIENT IDENTITY VERIFICATION COMPLETED USING TWO (2) IDENTIFIERS: Name and Date of confirmed by patient verbally. FALL SCREENING: Has the patient had 2 falls in the last year or 1 fall with injury or currently using an Ambulatory Assistive Device (Walker, Cane, Wheelchair, Crutches, etc.)? Yes, Patient High Risk for Falls What interventions were put in place to prevent falls during this visit? Increased Observations by Caregivers PATIENT GENDER DATA: Assigned female at . status: : No status: NO. PATIENT RELEVANT IMPLANT DATA REVIEWED: Not Applicable PATIENT PRESENTS WITH AN IMPLANTABLE OR ATTACHED EXERCISE PHYSIOLOGIST: No RADIOLOGY DEPARTMENT: Mammography PERIPHERAL IV DATA: Not applicable SIGNED BY: Arianna Camejo January 27, 2025 2:36 PM documented in this encounter [facility] 01-27-2025 Miscellaneous Notes Encounter addended by: Helder Rodriguez Mammo Solis on: 01/27/2025 2:41 PM Actions taken: Delete clinical note, Clinical Note Signed documented in this encounter [facility] 01-27-2025 Note Encounter addended b y: Helder Rodriguez Mammo Solis on: 01/27/2025 2:41 PM Actions taken: Delete clinical note, Clinical Note Signed [facility] 01-27-2025 Note HNO ID: [id number] Author: HELDER RODRIGUEZ Mammo Tech Service: ? Author Type: Endless Track Vehicle Mechanic Type: Progress Notes Filed: 01/27/2025 14:04 Note Text: Radiology Service Progress Note PATIENT NAME: Ratna Ray DATE OF SERVICE: January 27, 2025 TIME: 2:04 PM PATIENT IDENTITY VERIFICATION COMPLETED USING TWO (2) IDENTIFIERS: Name and Date of confirmed by patient verbally. FALL SCREENING: Has the patient had 2 falls in the last year or 1 fall with injury or currently using an Ambulatory Assistive Device (Walker, Cane, Wheelchair, Crutches, etc.)? No PATIENT GENDER DATA: Assigned female at . status: : No status: NO. PATIENT RELEVANT IMPLANT DATA REVIEWED: Not Applicable PATIENT PRESENTS WITH AN IMPLANTABLE OR ATTACHED EXERCISE PHYSIOLOGIST: No RADIOLOGY DEPARTMENT: Mammography PERIPHERAL IV DATA: Not applicable SIGNED BY: Arianna Camejo January 27, 2025 2:04 PM [facility] 01-27-2025 Note HNO ID: [id number] Author: HELDER RODRIGUEZ Mammo Tech Service: ? Author Type: Endless Track Vehicle Mechanic Type: Progress Notes Filed: 01/27/2025 14:41 Note Text: Radiology Service Progress Note PATIENT NAME: Ratna Ray DATE OF SERVICE: January 27, 2025 TIME: 2:36 PM PATIENT IDENTITY VERIFICATION COMPLETED USING TWO (2) IDENTIFIERS: Name and Date of confirmed by patient verbally. FALL SCREENING: Has the patient had 2 falls in the last year or 1 fall with injury or currently using an Ambulatory Assistive Device (Walker, Cane, Wheelchair, Crutches, etc.)? Yes, Patient High Risk for Falls What interventions were put in place to prevent falls during this visit? Increased Observations by Caregivers PATIENT GENDER DATA: Assigned female at . status: : No status: NO. PATIENT RELEVANT IMPLANT DATA REVIEWED: Not Applicable PATIENT PRESENTS WITH AN IMPLANTABLE OR ATTACHED EXERCISE PHYSIOLOGIST: No RADIOLOGY DEPARTMENT: Mammography PERIPHERAL IV DATA: Not applicable SIGNED BY: Arianna Camejo January 27, 2025 2:36 PM [facility] 12-29-2024 Telephone encounter Note Order linked to appt. Erna Gamez RN [facility] 12-29-2024 Miscellaneous Notes Order linked to appt. Erna Gamez RN Mammogram w/Ajit pending. Please file and will attach to appt. Erna Gamez RN Please link pended order once signed to scheduled appointment on 01/27/25. documented in this encounter [facility] 12-29-2024 Telephone encounter Note Mammogram w/Ajit pending. Please file and will attach to appt. Erna Gamez RN [facility] 12-29-2024 Telephone encounter Note Please link pended order once signed to scheduled appointment on 01/27/25. [facility] 12-15-2024 Note HNO ID: [id number] Author: MARYCRUZ RUSSELL APRN.ZONING ENGINEER Service: ? Author Type: Nurse Practitioner Type: Progress Notes Filed: 12/15/2024 15:48 Note Text: SUBJECTIVE Ratna Ray is a 43 year old female here today for a check up on her medical problems. Chief Complaint Patient presents with: F/U 6 months HPI Ratna Ray is a 43 year old female. She is an established patient of Romy Greer MD. Here today for a routine 6 month follow up. She is accompanied by her guardian. They report that her appetite is good. Doing well, exercising. Sleeping good. No recent falls. Taking medication well. Due for labs before next visit. Denies any questions or concerns. Her medications were reviewed today and her list is now up to date. Medications Current Outpatient Medications Medication Sig levocetirizine 5 mg tablet TAKE 1 TABLET BY MOUTH ONCE DAILY. FOR ALLERGY SYMPTOMS escitalopram oxalate (LEXAPRO) 10 mg tablet Take 1 tablet by mouth once daily. famotidine (PEPCID) 40 mg tablet Take 1 tablet by mouth daily at bedtime. Replaces ranitidine EPINEPHrine (EPIPEN) 0.3 mg/0.3 mL auto-injector use as directed incase of bee sting, Inject 0.3 ml Intramuscularly mupirocin (BACTROBAN) 2 % ointment Apply 1 application to affected area two times a day. until rash clears and then discontinue. for facial rash pseudoephedrine (SUDAFED) 30 mg tablet Take 1 tablet by mouth every 4 hours as needed for Cold/Allergy Symptoms. ibuprofen (MOTRIN) 400 mg tablet Take 400 mg by mouth every 6 hours as needed. acetaminophen (TYLENOL EXTRA STRENGTH) 500 mg tablet Take 2 tablets by mouth every 4 hours as needed for pain. Do not exceed 4000mg in 24 hours Diaper,Brief, Adult,Disposable (BRIEFS EXTRA LARGE) 1 Units as needed. Diaper,Brief, Adult,Disposable (ADULT BRIEF - EXTRA LARGE) 1 Units as needed. No current facility-administered medications for this visit. 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 Respiratory: Negative. Cardiovascular: Negative. OBJECTIVE BP 131/85 Pulse 71 Wt 120 lb 9.5 oz (54.7kg) SpO2 98% LMP 06/10/2024 Physical Exam Vitals and nursing note reviewed. Constitutional: General: She is awake. She is not in acute distress. Appearance: Normal appearance. She is well-developed and well-groomed. She is not ill-appearing, toxic-appearing or diaphoretic. HENT: Head: Normocephalic. Right Ear: External ear normal. Left Ear: External ear normal. Nose: Nose normal. Eyes: General: Vision grossly intact. Conjunctiva/sclera: Conjunctivae normal. Pupils: Pupils are equal, round, and reactive to light. Neck: Vascular: No JVD. Trachea: Trachea normal. Cardiovascular: Rate and Rhythm: Normal rate and regular rhythm. Pulses: Normal pulses. Heart sounds: Normal heart sounds. No murmur heard. Pulmonary: Effort: Pulmonary effort is normal. No accessory muscle usage, prolonged expiration or respiratory distress. Breath sounds: Normal breath sounds. Musculoskeletal: Cervical back: Neck supple. Skin: General: Skin is warm and dry. Capillary Refill: Capillary refill takes less than 2 seconds. Neurological: General: No focal deficit present. Mental Status: She is alert and oriented to person, place, and time. Mental status is at baseline. Psychiatric: Attention and Perception: Attention and perception normal. Mood and Affect: Mood and affect normal. Behavior: Behavior normal. Behavior is cooperative. Thought Content: Thought content normal. ASSESSMENT/PLAN: 1. Infantile cerebral palsy (HCC) - ICD9: 343.9, ICD10: G80.9 (primary diagnosis) Overall she is doing well, guardian denies any questions or concerns with the visit today. 2. Intellectual disability - ICD9: 319, ICD10: F79 See above. 3. Abnormal gait - ICD9: 781.2, ICD10: R26.9 Doing well with gait belt use. 4. Swallowing problem - ICD9: 787.20, ICD10: R13.10 Doing well with a modified diet. 5. Dyslipidemia - ICD9: 272.4, ICD10: E78.5 Due for labs, orders in for before next visit. 6. IFG (impaired fasting glucose) - ICD9: 790.21, ICD10: R73.01 See #5 Portions of this note have been entered by ancillary staff. I have reviewed and when necessary edited, so that they are an adequate record of my encounter with this patient Please n (more content not included)... [facility] 12-15-2024 History of Presen t illness Narrative SUBJECTIVE Ratna Ray is a 43 year old female here today for a check up on her medical problems. Chief Complaint Patient presents with: F/U 6 months HPI Ratna E Lovitz is a 43 year old female. She is an established patient of Romy Greer MD. Here today for a routine 6 month follow up. She is accompanied by her guardian. They report that her appetite is good. Doing well, exercising. Sleeping good. No recent falls. Taking medication well. Due for labs before next visit. Denies any questions or concerns. Her medications were reviewed today and her list is now up to date. Medications Current Outpatient Medications Medication Sig levocetirizine 5 mg tablet TAKE 1 TABLET BY MOUTH ONCE DAILY. FOR ALLERGY SYMPTOMS escitalopram oxalate (LEXAPRO) 10 mg tablet Take 1 tablet by mouth once daily. famotidine (PEPCID) 40 mg tablet Take 1 tablet by mouth daily at bedtime. Replaces ranitidine EPINEPHrine (EPIPEN) 0.3 mg/0.3 mL auto-injector use as directed incase of bee sting, Inject 0.3 ml Intramuscularly mupirocin (BACTROBAN) 2 % ointment Apply 1 application to affected area two times a day. until rash clears and then discontinue. for facial rash pseudoephedrine (SUDAFED) 30 mg tablet Take 1 tablet by mouth every 4 hours as needed for Cold/Allergy Symptoms. ibuprofen (MOTRIN) 400 mg tablet Take 400 mg by mouth every 6 hours as needed. acetaminophen (TYLENOL EXTRA STRENGTH) 500 mg tablet Take 2 tablets by mouth every 4 hours as needed for pain. Do not exceed 4000mg in 24 hours Diaper,Brief, Adult,Disposable (BRIEFS EXTRA LARGE) 1 Units as needed. Diaper,Brief, Adult,Disposable (ADULT BRIEF - EXTRA LARGE) 1 Units as needed. No current facility-administered medications for this visit. 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 Respiratory: Negative. Cardiovascular: Negative. OBJECTIVE BP 131/85 Pulse 71 Wt 120 lb 9.5 oz (54.7kg) SpO2 98% LMP 06/10/2024 Physical Exam Vitals and nursing note reviewed. Constitutional: General: She is awake. She is not in acute distress. Appearance: Normal appearance. She is well-developed and well-groomed. She is not ill-appearing, toxic-appearing or diaphoretic. HENT: Head: Normocephalic. Right Ear: External ear normal. Left Ear: External ear normal. Nose: Nose normal. Eyes: General: Vision grossly intact. Conjunctiva/sclera: Conjunctivae normal. Pupils: Pupils are equal, round, and reactive to light. Neck: Vascular: No JVD. Trachea: Trachea normal. Cardiovascular: Rate and Rhythm: Normal rate and regular rhythm. Pulses: Normal pulses. Heart sounds: Normal heart sounds. No murmur heard. Pulmonary: Effort: Pulmonary effort is normal. No accessory muscle usage, prolonged expiration or respiratory distress. Breath sounds: Normal breath sounds. Musculoskeletal: Cervical back: Neck supple. Skin: General: Skin is warm and dry. Capillary Refill: Capillary refill takes less than 2 seconds. Neurological: General: No focal deficit present. Mental Status: She is alert and oriented to person, place, and time. Mental status is at baseline. Psychiatric: Attention and Perception: Attention and perception normal. Mood and Affect: Mood and affect normal. Behavior: Behavior normal. Behavior is cooperative. Thought Content: Thought content normal. ASSESSMENT/PLAN: 1. Infantile cerebral palsy (HCC) - ICD9: 343.9, ICD10: G80.9 (primary diagnosis) Overall she is doing well, guardian denies any questions or concerns with the visit today. 2. Intellectual disability - ICD9: 319, ICD10: F79 See above. 3. Abnormal gait - ICD9: 781.2, ICD10: R26.9 Doing well with gait belt use. 4. Swallowing problem - ICD9: 787.20, ICD10: R13.10 Doing well with a modified diet. 5. Dyslipidemia - ICD9: 272.4, ICD10: E78.5 Due for labs, orders in for before next visit. 6. IFG (impaired fasting glucose) - ICD9: 790.21, ICD10: R73.01 See #5 Portions of this note have been entered by ancillary staff. I have reviewed and when necessary edited, so that they are an adequate record of my encounter with this patient Please note that parts of this document were created using voice recognition software and therefore may contain grammatical errors. Patient verbalizes understanding of instructions from today's visit and in agreement with treatment plan. Questions answered. Agrees to call the office if questions, concerns of issues with acute symptoms not improving or if they worsen. See diagnoses and orders for additional plan(s). Allergies and medications were reviewed, list was updated, and refills given if needed. Past medical, surgical, social, and family history reviewed and updated as appropriate. Encouraged proper diet & exercise as well as compliance with taking medications. Age-appropriate health preventative measures were discussed. Return if symptoms worsen or fail to improve, for Keep next scheduled appointment.. KATIE Ayala documented in this encounter [facility] 11-02-2024 Telephone encounter Note The following approved medication requests have been transmitted electronically. Requested Prescriptions Pending Prescriptions Disp Refills levocetirizine 5 mg tablet 28 tablet 11 Sig: TAKE 1 TABLET BY MOUTH ONCE DAILY. FOR ALLERGY SYMPTOMS Romy Greer MD [facility] 11-02-2024 Miscellaneous Notes The following approved medication requests have been transmitted electronically. Requested Prescriptions Pending Prescriptions Disp Refills levocetirizine 5 mg tablet 28 tablet 11 Sig: TAKE 1 TABLET BY MOUTH ONCE DAILY. FOR ALLERGY SYMPTOMS Romy Greer MD Prescription Refill Information The patient has been identified by name and date of : Yes Caregiver verified no other encounters exist for this prescription request: Yes Caregiver confirmed with patient/requestor that no other refills are due, in the near future, with this provider at this time: Yes The last office visit in the department: 06-16-24 Does the patient have a future office visit with this provider/department: Yes Requested Prescriptions Pending Prescriptions Disp Refills levocetirizine 5 mg tablet 28 tablet 11 Sig: TAKE 1 TABLET BY MOUTH ONCE DAILY. FOR ALLERGY SYMPTOMS Aline Chauhan [facility] November 02, 2024 11:48 AM documented in this encounter [facility] 11-02-2024 Telephone encounter Note Prescription Refill Information The patient has been identified by name and date of : Yes Caregiver verified no other encounters exist for this prescription request: Yes Caregiver confirmed with patient/requestor that no other refills are due, in the near future, with this provider at this time: Yes The last office visit in the department: 06-16-24 Does the patient have a future office visit with this provider/department: Yes Requested Prescriptions Pending Prescriptions Disp Refills levocetirizine 5 mg tablet 28 tablet 11 Sig: TAKE 1 TABLET BY MOUTH ONCE DAILY. FOR ALLERGY SYMPTOMS Aline Chauhan [facility] November 02, 2024 11:48 AM [facility] Work Phone: 07-13-2024 Instructions Romy Greer MD - 07/13/2024 12:57 AM EDT -Continue with regular exercise, including [employer] workouts, as this is beneficial for overall health and cholesterol management. - Continue with a healthy diet, focusing on omega-3 oils and fish to help improve good cholesterol (HDL) levels. - Refills for Escitalopram and Pepcid have been sent to your pharmacy. - Refill for the EpiPen has been sent to your pharmacy. - Flu vaccine administered today. - FOBT (Fecal Occult Blood Test) kit will be provided for colon cancer screening. - Maintain regular eye exams and gynecological care. - Continue with routine check-ups every six months with alternating visits between [place] and [place]. documented in this encounter [facility] 06-16-2024 History of Presen t illness Narrative This note was created using Syllabusterter. Subjective Ratna Ray is a 43 year old female. HISTORY Ratna Ray is a 43 year old lady here for yearly exam and follow up appointment. Patient is a 43-year-old female presenting for a routine follow-up. She is accompanied by her caregiver, who provides additional history. Patient has a history of pre-diabetes, hyperlipidemia, and anxiety. She is currently taking escitalopram, Pepcid, and levocetirizine. She has an EpiPen on hand for emergencies and uses Bactroban for facial rashes as needed. She does not use Nasonex or AyrGel. She has not received the COVID-19 vaccine and is unsure if she has ever had COVID-19. She has not undergone any colon cancer screening. Patient is reportedly doing well overall. She exercises regularly, doing aerobics and stretching exercises with [employer] videos Saturday through Saturday. She enjoys her routine and has no symptoms of depression. She has a healthy diet, but her caregiver notes that it is difficult for her to eat salads due to her diet being changed to rice-sized pieces. She gets plenty of fluids, including water, juice, milk, and iced coffee. She has no known family history of colon cancer, as she was adopted. Patient's caregiver notes that her eye movements are getting worse, but she has glasses. She has had mammograms in the past, which have shown dense breast tissue but no significant changes. 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 levocetirizine 5 mg tablet TAKE 1 TABLET BY MOUTH ONCE DAILY. FOR ALLERGY SYMPTOMS mupirocin (BACTROBAN) 2 % ointment Apply 1 application to affected area two times a day. until rash clears and then discontinue. for facial rash famotidine (PEPCID) 40 mg tablet Take 1 tablet by mouth daily at bedtime. Replaces ranitidine mometasone (NASONEX) 50 mcg/actuation nasal spray Use 2 Sprays in the nose once daily. Rinse mouth after use. After treating for acute allergies or infection, may use 2 sprays daily as needed (Patient taking differently: Use 2 Sprays in the nose as needed. Rinse mouth after use. After treating for acute allergies or infection, may use 2 sprays daily as needed) EPINEPHrine (EPIPEN) 0.3 mg/0.3 mL auto-injector use as directed incase of bee sting, Inject 0.3 ml Intramuscularly Diaper,Brief, Adult,Disposable (BRIEFS EXTRA LARGE) 1 Units as needed. Diaper,Brief, Adult,Disposable (ADULT BRIEF - EXTRA LARGE) 1 Units as needed. pseudoephedrine (SUDAFED) 30 mg tablet Take 1 tablet by mouth every 4 hours as needed for Cold/Allergy Symptoms. ibuprofen (MOTRIN) 400 mg tablet Take 400 mg by mouth every 6 hours as needed. acetaminophen (TYLENOL EXTRA STRENGTH) 500 mg tablet Take 1 tablet by mouth every 4 hours as needed for Pain. nystatin (MYCOSTATIN) powder Apply 1 application to affected area three times daily as needed. (Patient not taking: Reported on 06/16/2024) sodium chloride (AYR, OCEAN) 0.65 % nasal spray Use 1 [place] in the nose as needed. (Patient not taking: Reported on 06/16/2024) No current facility-administered medications for this visit. ALLERGIES Allergen Reactions Bee Venom Protein (* Other: See Comments FAMILY HISTORY Adopted: Yes Problem Relation Age of Onset other (Adopted Status - Unknown) Other Social History Tobacco Use Smoking status: Never Smokeless tobacco: Former Vaping Use Vaping status: Never Used Substance Use Topics Alcohol use: No Drug use: No Review of Systems Objective BP 122/72 Pulse 87 Temp 37.1 C (98.7 F) Resp 18 Ht 139.5 cm (4' 6.92) Wt 55 kg (121 lb 4.1 oz) LMP 06/10/2024 (Approximate) SpO2 98% BMI 28.26 kg/m Last 5 Encounter Wt Readings: Date: Wt: 06/16/2024 55 kg (121 lb 4.1 oz) 12/18/2023 55.8 kg (123 lb) 12/05/2023 56.4 kg (124 lb 6.4 oz) 03/05/2023 59.4 kg (131 lb) 01/23/2023 58.5 kg (129 lb) No waist measurement recorded Estimated body mass index is 28.26 kg/m as calculated from the following: Height as of this encounter: 139.5 cm (4' 6.92). Weight as of this encounter: 55 kg (121 lb 4.1 oz). Last 5 Encounter BP Readings: Date: BP: 06/16/2024 122/72 12/18/2023 138/98 12/05/2023 108/70 06/11/2023 112/62 03/05/2023 120/80 Physical Exam Vitals reviewed. Constitutional: General: She is not in acute distress. Appearance: She is well-developed. She is not ill-appearing, toxic-appearing or diaphoretic. HENT: Head: Normocephalic and atraumatic. Right Ear: External ear normal. Left Ear: External ear normal. Nose: Nose normal. Mouth/Throat: Mouth: Mucous membranes are moist. Eyes: Conjunctiva/sclera: Conjunctivae normal. Pupils: Pupils are equal, round, and reactive to light. Neck: Thyroid: No thyromegaly. Cardiovascular: Rate and Rhythm: Normal rate and regular rhythm. Pulses: Normal pulses. Heart sounds: Normal heart sounds. No murmur heard. No friction rub. No gallop. Pulmonary: Effort: Pulmonary effort is normal. Breath sounds: Normal breath sounds. Abdominal: General: Bowel sounds are normal. There is no distension. Palpations: Abdomen is soft. There is no mass. Tenderness: There is no abdominal tenderness. Musculoskeletal: General: No deformity. Normal range of motion. Lymphadenopathy: Cervical: No cervical adenopathy. Skin: General: Skin is warm and dry. Coloration: Skin is not jaundiced or pale. Findings: No rash. Neurological: General: No focal deficit present. Mental Status: She is alert and oriented to person, place, and time. Cranial Nerves: No cranial nerve deficit. Sensory: No sensory deficit. Motor: No abnormal muscle tone. Coordination: Coordination normal. Deep Tendon Reflexes: Reflexes normal. Psychiatric: Attention and Perception: Attention normal. Behavior: Behavior is cooperative. Latest Ref Rng 04/04/2022 05/29/2023 05/26/2024 WBC 3.70 - 11.00 k/uL 6.04 5.13 RBC 3.90 - 5.20 m/uL 4.97 4.66 Hemoglobin 11.5 - 15.5 g/dL 14.3 13.9 Hematocrit 36.0 - 46.0 % 44.8 41.3 MCV 80.0 - 100.0 fL 90.1 88.6 MCH 26.0 - 34.0 pg 28.8 29.8 MCHC 30.5 - 36.0 g/dL 31.9 33.7 RDW-CV 11.5 - 15.0 % 12.6 12.8 Platelet Count 150 - 400 k/uL 296 265 MPV 9.0 - 12.7 fL 8.9 (L) 8.7 (L) Neut% % 49.3 Abs Neut (ANC) 1.45 - 7.50 k/uL 2.53 Lymph% % 39.6 Abs Lymph 1.00 - 4.00 k/uL 2.03 Elliott% % 6.6 Abs Elliott <0.87 k/uL 0.34 Eosin% % 3.1 Abs Eosin <0.46 k/uL 0.16 Baso% % 1.2 Abs Baso <0.11 k/uL 0.06 Immature Gran % % 0.2 IMMATURE GRANS (ABS) <0.10 k/uL <0.03 NRBC /100 WBC 0.0 Absolute nRBC <0.01 k/uL <0.01 <0.01 DTYPE Auto Protein, Total 6.3 - 8.0 g/dL 7.5 7.6 6.9 Albumin 3.9 - 4.9 g/dL 4.6 4.5 4.3 Calcium 8.5 - 10.2 mg/dL 9.7 9.7 9.0 Bilirubin, Total 0.2 - 1.3 mg/dL 0.8 0.9 0.8 Alkaline Phosphatase 34 - 123 U/L 65 76 60 AST 13 - 35 U/L 22 27 18 ALT 7 - 38 U/L 18 26 15 Glucose 74 - 99 mg/dL 105 (H) 93 90 BUN 7 - 21 mg/dL 9 9 8 Creatinine 0.58 - 0.96 mg/dL 0.68 0.78 0.67 Sodium 136 - 144 mmol/L 139 137 140 Potassium 3.7 - 5.1 mmol/L 4.2 4.2 4.0 Chloride 98 - 107 mmol/L 101 101 104 CO2 22 - 30 mmol/L 23 24 23 Anion Gap 8 - 15 mmol/L 15 12 13 eGFR >=60 mL/min/1.73m 111 96 110 Cholesterol, Total <200 mg/dL 195 191 179 Triglyceride <150 mg/dL 226 (H) 135 94 HDL Cholesterol >39 mg/dL 30 (L) 34 (L) 38 (L) Non HDL Cholesterol <130 mg/dL 165 (H) 157 (H) 141 (H) Fasting Time hrs 12 9 12 VLDL Cholesterol <30 mg/dL 45 (H) 27 19 TC:HDL Ratio <5.10 6.50 (H) 5.62 (H) 4.71 LDL Cholesterol <100 mg/dL 120 (H) 130 (H) 122 (H) LDL:HDL Ratio <2.54 4.00 (H) 3.82 (H) 3.21 (H) Hemoglobin A1C 4.3 - 5.6 % 5.5 5.3 4.7 Estimated Average Glucose mg/dL 111 105 88 Legend: (H) High (L) Low Assessment and Plan Encounter Diagnosis ICD-10-CM 1. Infantile cerebral palsy (HCC) G80.9 2. Dyslipidemia E78.5 LIPID PANEL BASIC 3. Dysmetabolic syndrome E88.810 HEMOGLOBIN A1C COMPREHENSIVE METABOLIC PANEL COMPLETE BLOOD COUNT LIPID PANEL BASIC 4. Bee sting allergy Z91.030 EPINEPHrine (EPIPEN) 0.3 mg/0.3 mL auto-injector 5. Screening for depression Z13.31 DEPRESSION SCREENING 6. Encounter for immunization Z23 INFLUENZA VACCINE, AGE [id number]-64YR, TRIVALENT (AFLURIA, FLULAVAL, FLUVIRIN, FLUZONE) 7. Screening for colon cancer Z12.11 IMMUNOCHEMICAL FECAL OCCULT BLOOD TEST 8. Encounter for long-term current use of medication Z79.899 HEMOGLOBIN A1C COMPREHENSIVE METABOLIC PANEL COMPLETE BLOOD COUNT LIPID PANEL BASIC # Bee sting allergy - EpiPen prescription refilled; current EpiPen expires next month. # Screening for depression - No signs of depression observed; patient appears content and engaged in routine activities. # Encounter for immunization - Administered influenza vaccine. - Discussed COVID-19 vaccination; decision left to guardians. # Screening for colon cancer - Discussed options for colon cancer screening, including stool test for blood and Cologuard. - Ordered stool test for blood; provided kit to guardian. # Infantile cerebral palsy (HCC) - Condition stable; no acute issues noted. # Dyslipidemia # Dysmetabolic syndrome - Recent labs show improvement in lipid profile; HDL increased to 38 mg/dL, triglycerides decreased, LDL at 120 mg/dL. - A1c normal, no signs of diabetes. - Encouraged continuation of regular exercise and dietary modifications to further improve lipid levels. # Encounter for long-term current use of medication - Refilled escitalopram and Pepcid prescriptions. - Discontinued Nasonex as it is no longer needed. - Confirmed adequate supply of Bactroban; refill available until next December. - Sudafed and AirGel removed from medication list as they are no longer needed. - Levocetirizine refill due in December; will be addressed at next appointment. Romy Greer MD documented in this encounter [facility] 01-23-2024 Miscellaneous Notes January 24, 2024 PID: [id number] Ratna Ray [address] [place] [address] Dear Ms. Ray, We are pleased to inform you that the results of your recent breast imaging exam on 01/22/2024 are normal. Your mammogram demonstrates that you have dense breast tissue, which could hide abnormalities. Dense breast tissue, in and of itself, is a relatively common condition. Therefore, this information is not provided to cause undue concern; rather, it is to raise your awareness and promote discussion with your health care provider regarding the presence of dense breast tissue in addition to other risk factors. Early detection of cancer is very important. We also understand recommendations regarding breast cancer screening are controversial. Please discuss with your primary care provider which strategy is best for you and whether a mammogram is right for you. Your imaging studies and report will be kept on file at [facility] as part of your permanent medical record and are available for your continuing care. Thank you for allowing us to help in meeting your health care needs. Sincerely, Dr. Franklin Interpreting Radiologist [facility] (Normal over 40) documented in this encounter [facility] 01-22-2024 History of Presen t illness Narrative Radiology Service Progress Note PATIENT NAME: Ratna Ray DATE OF SERVICE: January 22, 2024 TIME: 4:03 PM PATIENT IDENTITY VERIFICATION COMPLETED USING TWO (2) IDENTIFIERS: Name and Date of confirmed by patient verbally. FALL SCREENING: Has the patient had 2 falls in the last year or 1 fall with injury or currently using an Ambulatory Assistive Device (Walker, Cane, Wheelchair, Crutches, etc.)? Yes, Patient High Risk for Falls What interventions were put in place to prevent falls during this visit? Offered Assistance with Transfers/Clothing, Instructed Patient to Remain Seated (Not on Exam Table) Until Exam, and Increased Observations by Caregivers PATIENT GENDER DATA: Female. status: : No status: NO. PATIENT RELEVANT IMPLANT DATA REVIEWED: Not Applicable PATIENT PRESENTS WITH AN IMPLANTABLE OR ATTACHED EXERCISE PHYSIOLOGIST: No RADIOLOGY DEPARTMENT: Mammography PERIPHERAL IV DATA: Not applicable SIGNED BY: Arianna Ba January 22, 2024 4:03 PM documented in this encounter [facility] 01-02-2024 Miscellaneous Notes Review of outside medications shows that she has been taking 10 mg until the last refill. PCP note June 11, 2023 indicates to stay on the same medications. Nayeli called in and reports she though Tracey was taking 20 mg of the Lexapro. Looking through the history it looks like she was for a short period of time, but it was decreased to a half a pill only to be increased with worsening behavior. The medication was then decreased down to 10 mg 10/12/20. She states her behavior has been fine and to keep her on the 10 mg since that has been what she has been on. Patient has been identified by name and date of : Yes, Provider Dr Guerra Date 01/02/24 Time 0942 Parent/Guardian phones for refill(s): / Requested Prescriptions Pending Prescriptions Disp Refills escitalopram oxalate (LEXAPRO) 10 mg tablet 30 tablet 5 Sig: Take 1 tablet by mouth once daily. Date of last office visit in primary care: 12/18/2023 Date of next office visit in primary care: 06/16/2024 Please advise. Thank you. Stephy King RN. documented in this encounter [facility] 01-01-2024 Miscellaneous Notes Noted. Await response to letter set. Attempted to contact guardian, no answer and unable to leave message. Letter mailed yesterday. Romi Palta MA Will send letter to address as well as continue to try to reach via phone. Romi Plata MA Attempted to reach pt and pt guardian. Pt work number no longer a working number. Guardian did not answer and VM is now full. Phone call to [facility] to see if they know how pt was taking previous prescription. Spoke with Lupe. Until 12/23/23, they were sending lexapro 10 mg once daily in patient's pill packs. Please advise. Romi Plata MA Left a message for Nayeli to call the office Please give message below. Phuong Patel LPN LM for Nayeli to contact office regarding below. OF NOTE, we NEED to have Nayeli submit letters of guardianship GUILLERMO to have scanned into chart. The only thing we have scanned in is expert evaluation on 03/18/2017. Romi Plata MA There is a comment on the med list that patient taking 20 mg Make sure this dose is correct and let them know 20 mg dose was sent in so will not take two 20mg pills when they get this filled. The following approved medication requests have been transmitted electronically. Requested Prescriptions Signed Prescriptions Disp Refills escitalopram oxalate (LEXAPRO) 20 mg tablet 30 tablet 11 Sig: Take 1 tablet by mouth once daily. Authorizing Provider: ROMY GREER MD Patient has been identified by name and date of : Yes Patient phones for refill(s): Requested Prescriptions Pending Prescriptions Disp Refills escitalopram oxalate (LEXAPRO) 10 mg tablet [Pharmacy Med Name: escitalopram 10 mg tablet] 30 tablet 5 Sig: take one tablet by mouth every day Date of last office visit in primary care: Visit date not found Date of next office visit in primary care: Visit date not found Please advise. Thank you. Sonya Magaña LPN. documented in this encounter [facility] 12-18-2023 History of Presen t illness Narrative SUBJECTIVE Ratna Ray is a 42 year old female here today for a check up on her medical problems. Chief Complaint Patient presents with: Recheck: 6 month follow up HPI Ratna Ray is a 42 year old female. She is an established patient of Romy Greer MD. She presents today for a 6 month follow up. Last seen 06/11/2024 with Romy Greer MD. History of intellectual disability, dyslipidemia, dysmetabolic syndrome, nystagmus, swallowing problem, and abnormal gait. Accompanied by a hearing care practitioner today. Exercises to [employer] tapes. Goes bowling weekly. Gait belt helpful. No recent falls. No sleep issues. No issues with pain. Appetite is good. Swallow study recommended diet that is minced and moist, thin liquids. Her medications were reviewed today and her list is now up to date. Medications Current Outpatient Medications Medication Sig famotidine (PEPCID) 40 mg tablet Take 1 tablet by mouth daily at bedtime. Replaces ranitidine escitalopram oxalate (LEXAPRO) 10 mg tablet Take 1 tablet by mouth once daily. (Patient taking differently: Take 20 mg by mouth once daily.) mometasone (NASONEX) 50 mcg/actuation nasal spray Use 2 Sprays in the nose once daily. Rinse mouth after use. After treating for acute allergies or infection, may use 2 sprays daily as needed (Patient taking differently: Use 2 Sprays in the nose as needed. Rinse mouth after use. After treating for acute allergies or infection, may use 2 sprays daily as needed) EPINEPHrine (EPIPEN) 0.3 mg/0.3 mL auto-injector use as directed incase of bee sting, Inject 0.3 ml Intramuscularly Diaper,Brief, Adult,Disposable (BRIEFS EXTRA LARGE) 1 Units as needed. Diaper,Brief, Adult,Disposable (ADULT BRIEF - EXTRA LARGE) 1 Units as needed. sodium chloride (AYR, OCEAN) 0.65 % nasal spray Use 1 [place] in the nose as needed. pseudoephedrine (SUDAFED) 30 mg tablet Take 1 tablet by mouth every 4 hours as needed for Cold/Allergy Symptoms. ibuprofen (MOTRIN) 400 mg tablet Take 400 mg by mouth every 6 hours as needed. acetaminophen (TYLENOL EXTRA STRENGTH) 500 mg tablet Take 1 tablet by mouth every 4 hours as needed for Pain. levocetirizine 5 mg tablet TAKE 1 TABLET BY MOUTH ONCE DAILY. FOR ALLERGY SYMPTOMS mupirocin (BACTROBAN) 2 % ointment Apply 1 application to affected area two times a day. until rash clears and then discontinue. for facial rash nystatin (MYCOSTATIN) powder Apply 1 application to affected area three times daily as needed. No current facility-administered medications for this visit. ALLERGIES Allergen Reactions Bee Venom Protein (* Other: See Comments ACTIVE PROBLEM LIST Other Optic Atrophy, Bilateral - 05/13/2023 Nystagmus - 05/13/2023 Myopia of Both Eyes - 05/13/2023 Regular Astigmatism of Both Eyes - 05/13/2023 Anxiety - 11/29/2015 Dysmetabolic Syndrome - 07/05/2009 Comment: noted low HDL Esophageal Reflux - 12/10/2006 Allergic Rhinitis Intellectual Disability Comment: secondary to cephalcele Infantile Cerebral Palsy (Hcc) Social History Tobacco Use Smoking status: Never Smokeless tobacco: Former Vaping Use Vaping Use: Never used Substance Use Topics Alcohol use: No Drug use: No Review of Systems Constitutional: Negative. Respiratory: Negative. Cardiovascular: Negative. OBJECTIVE BP 138/98 Pulse 94 Resp 16 Wt 123 lb (55.8kg) SpO2 97% LMP 11/21/2023 Physical Exam Vitals and nursing note reviewed. Constitutional: General: She is awake. She is not in acute distress. Appearance: Normal appearance. She is well-developed and well-groomed. She is not ill-appearing, toxic-appearing or diaphoretic. HENT: Head: Normocephalic. Right Ear: External ear normal. Left Ear: External ear normal. Nose: Nose normal. Eyes: General: Vision grossly intact. Conjunctiva/sclera: Conjunctivae normal. Pupils: Pupils are equal, round, and reactive to light. Neck: Vascular: No JVD. Trachea: Trachea normal. Cardiovascular: Rate and Rhythm: Normal rate and regular rhythm. Pulses: Normal pulses. Heart sounds: Normal heart sounds. No murmur heard. Pulmonary: Effort: Pulmonary effort is normal. No accessory muscle usage, prolonged expiration or respiratory distress. Breath sounds: Normal breath sounds. Musculoskeletal: Cervical back: Neck supple. Skin: General: Skin is warm and dry. Capillary Refill: Capillary refill takes less than 2 seconds. Neurological: General: No focal deficit present. Mental Status: She is alert. Mental status is at baseline. Psychiatric: Attention and Perception: Attention and perception normal. Mood and Affect: Mood and affect normal. Behavior: Behavior is cooperative. Cognition and Memory: Cognition is impaired. ASSESSMENT/PLAN: 1. Intellectual disability - ICD9: 319, ICD10: F79 (primary diagnosis) Doing well with current care. 2. Dysmetabolic syndrome - ICD9: 277.7, ICD10: E88.810 She has lost weight since last visit, still exercising regularly and active. - LIPID PANEL BASIC - HGB A1C 3. Dyslipidemia - ICD9: 272.4, ICD10: E78.5 - Control undetermined, due for labs - Counseled on healthy diet and regular exercise - LIPID PANEL BASIC 4. IFG (impaired fasting glucose) - ICD9: 790.21, ICD10: R73.01 - HGB A1C 5. Infantile cerebral palsy (HCC) - ICD9: 343.9, ICD10: G80.9 Gait disturbance but gait belt helpful, no recent falls. 6. Abnormal gait - ICD9: 781.2, ICD10: R26.9 7. Swallowing problem - ICD9: 787.20, ICD10: R13.10 Swallow study report obtained from [facility] and will scan in to chart, recommend moist and minced foods, thin liquids ok. - AMBULATORY NURSING COMMUNICATION ORDER 8. Rash and nonspecific skin eruption - ICD9: 782.1, ICD10: R21 - MUPIROCIN 2 % TOPICAL OINTMENT 9. Encounter for therapeutic drug monitoring - ICD9: V58.83, ICD10: Z51.81 - CBC + DIFF - COMP METABOLIC PANEL Portions of this note have been entered by ancillary staff. I have reviewed and when necessary edited, so that they are an adequate record of my encounter with this patient Please note that parts of this document were created using voice recognition software and therefore may contain grammatical errors. Patient verbalizes understanding of instructions from today's visit and in agreement with treatment plan. Questions answered. Agrees to call the office if questions, concerns of issues with acute symptoms not improving or if they worsen. See diagnoses and orders for additional plan(s). Allergies and medications were reviewed, list was updated, and refills given if needed. Past medical, surgical, social, and family history reviewed and updated as appropriate. Encouraged proper diet & exercise as well as compliance with taking medications. Age-appropriate health preventative measures were discussed. Return if symptoms worsen or fail to improve, for Keep next scheduled appointment.. Marycruz Russell APRN-MAYLIN documented in this encounter [facility] 12-05-2023 History of Presen t illness Narrative Group Worker offered: Patient accepts, visit chaperoned by Web Assistant.and guardian Nayeli Holmes. Webb is a 42 year old who presents for an annual gynecologic exam without complaints. Caregiver has no concerns. Menses: cycles every 25-30 days and 4-5 days of flow. Contraception: none HPV vaccine: N/A Last Pap: 08/18/2019 normal HPV: N/A History of abnormal pap: No Last mammogram: 2022normal Sexually active: No OB History T0 L0 SAB0 IAB0 Ectopic0 Multiple0 Live Births0 Spa Attendant History LMP: 11/21/2023 (Approximate), Having periods Age at Menarche: Age at First : Age at Menopause: Spa Attendant History Comments: Sexual Activity: Never; No partner data on record Contraception: No contraception data on record PAST MEDICAL HISTORY Diagnosis Date Allergic rhinitis due to other allergen Anxiety controlled with Lexapro Esophageal reflux 12/10/2006 Infantile cerebral palsy, unspecified 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 No bloating, early satiety, indigestion, or increased flatulence. Bladder: No dysuria, gross hematuria, urinary frequency, urinary urgency, or incontinence. Breast: No breast lumps, nipple d/c, overlying skin changes, redness or skin retraction. Allergies and current medication updated:Yes EXAM: BP 108/70 Wt 124 lb 6.4 oz (56.4kg) LMP 11/21/2023 GENERAL: pleasant, female in no apparent distress HEENT: Normocephalic, atraumatic, mucus membranes moist, and no lesions NECK: Supple, full range of motion, no adenopathy, and thyroid normal DERMATOLOGY: Normal, without lesions, non-icteric, and non-hirsute BREAST: soft, non-tender, symmetric, no dominant mass, normal nipple-areolar complex, no lymphadenopathy, and no nipple discharge CHEST: Normal inspiratory effort ABDOMEN: soft, non-tender, and no masses PELVIC: external genitalia normal, normal Bartholin's glands, urethra, [place]'s glands, no vulvar lesions, no cervical lesions, good vaginal support, physiologic discharge present, normal appearing perineal body and perianal region BIMANUAL: uterus normal size, shape and consistency, no adnexal masses, and non-tender RECTOVAGINAL: deferred. NEURO: alert and oriented x3,exam grossly non-focal EXTREMITIES: normal ASSESSMENT/PLAN: 1) Health maintenance: Pap done today Mammogram ordered. Nutrition, exercise and routine health maintenance exams reviewed. 2) Contraception: none. 3) Follow up one year or sooner as needed Mikki Velazquez APRN.ZONING ENGINEER documented in this encounter [facility] 07-15-2023 Miscellaneous Notes Last office visit: 06/11/23 Next appointment scheduled: No future appointments scheduled at this time. Patient has been identified by name and date of : Yes Requested Prescriptions Pending Prescriptions Disp Refills escitalopram oxalate (LEXAPRO) 10 mg tablet 30 tablet 5 Sig: Take 1 tablet by mouth once daily. RX INSTRUCTIONS: Pharmacy initiated this request. No need to notify patient. Jenna Meyer documented in this encounter [facility] 06-11-2023 History of Presen t illness Narrative This note was created using [email or web address]. Subjective Ratna Ray is a 42 year old female. Patient presents with: F/U 6 months: Labs prior SUBJECTIVE: Ratna Ray is a 42 year old year old lady here today for 6 month follow up appointment for review of medical conditions. Still does exercise with [employer]. Knocked out bread after swallowing study. Doing well overall. Sleeping well. Noted eye evaluation--still with nystagmus but seems to compensate with holding finger up to face. 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 escitalopram oxalate (LEXAPRO) 10 mg tablet Take 1 tablet by mouth once daily. mometasone (NASONEX) 50 mcg/actuation nasal spray Use 2 Sprays in the nose once daily. Rinse mouth after use. After treating for acute allergies or infection, may use 2 sprays daily as needed (Patient taking differently: Use 2 Sprays in the nose as needed. Rinse mouth after use. After treating for acute allergies or infection, may use 2 sprays daily as needed) levocetirizine 5 mg tablet TAKE 1 TABLET BY MOUTH ONCE DAILY. FOR ALLERGY SYMPTOMS EPINEPHrine (EPIPEN) 0.3 mg/0.3 mL auto-injector use as directed incase of bee sting, Inject 0.3 ml Intramuscularly famotidine (PEPCID) 40 mg tablet Take 1 tablet by mouth daily at bedtime. Replaces ranitidine Diaper,Brief, Adult,Disposable (BRIEFS EXTRA LARGE) 1 Units as needed. sodium chloride (AYR, OCEAN) 0.65 % nasal spray Use 1 [place] in the nose as needed. pseudoephedrine (SUDAFED) 30 mg tablet Take 1 tablet by mouth every 4 hours as needed for Cold/Allergy Symptoms. ibuprofen (MOTRIN) 400 mg tablet Take 400 mg by mouth every 6 hours as needed. acetaminophen (TYLENOL EXTRA STRENGTH) 500 mg tablet Take 1 tablet by mouth every 4 hours as needed for Pain. fluconazole (DIFLUCAN) 150 mg tablet Take one tablet by mouth; wait 72 hours and take the second--as directed for yeast infection after antibiotic/ (Patient not taking: Reported on 03/05/2023) Diaper,Brief, Adult,Disposable (ADULT BRIEF - EXTRA LARGE) 1 Units as needed. (Patient not taking: Reported on 06/11/2023) mupirocin (BACTROBAN) 2 % ointment Apply 1 application to affected area twice daily. until rash clears and then discontinue. for facial rash (Patient not taking: Reported on 03/05/2023) triamcinolone acetonide (KENALOG) 0.1 % cream Apply 1 application to affected area three times daily. Apply sparingly to area for rash/itching. (Patient not taking: Reported on 04/28/2021) No current facility-administered medications for this visit. Review of Systems Objective Pulse (P) 82 Temp (P) 37.4 C (99.3 F) Resp (P) 18 Wt (P) 57.5 kg (126 lb 12.8 oz) LMP 05/16/2023 (Approximate) SpO2 (P) 98% BMI (P) 30.01 kg/m Physical Exam Constitutional: Appearance: Normal appearance. HENT: Head: Normocephalic. Eyes: Conjunctiva/sclera: Conjunctivae normal. Cardiovascular: Rate and Rhythm: Normal rate and regular rhythm. Heart sounds: Normal heart sounds. Pulmonary: Effort: Pulmonary effort is normal. Breath sounds: Normal breath sounds. Skin: General: Skin is warm and dry. Neurological: General: No focal deficit present. Mental Status: She is alert and oriented to person, place, and time. Psychiatric: Behavior: Behavior is cooperative. Comments: Non verbal but signs yes as needed. Pleasant mood Component Latest Ref Rng & Units 05/25/2020 09/26/2021 04/04/2022 05/29/2023 Protein, Total 6.3 - 8.0 g/dL 7.8 7.5 7.5 7.6 Albumin 3.9 - 4.9 g/dL 4.6 4.2 4.6 4.5 Calcium 8.5 - 10.2 mg/dL 9.6 9.5 9.7 9.7 Bilirubin, Total 0.2 - 1.3 mg/dL 0.9 0.5 0.8 0.9 Alkaline Phosphatase 34 - 123 U/L 67 75 65 76 AST 13 - 35 U/L 22 24 22 27 Glucose 74 - 99 mg/dL 94 160 (H) 105 (H) 93 BUN 7 - 21 mg/dL 7 13 9 9 Creatinine 0.58 - 0.96 mg/dL 0.72 0.71 0.68 0.78 Sodium 136 - 144 mmol/L 138 137 139 137 Potassium 3.7 - 5.1 mmol/L 4.2 4.0 4.2 4.2 Chloride 97 - 105 mmol/L 100 103 101 101 CO2 22 - 30 mmol/L 24 21 (L) 23 24 Anion Gap 9 - 18 mmol/L 14 13 15 12 ALT 7 - 38 U/L 17 20 18 26 eGFR- >60 >60 eGFR-All Other Races . >60 >60 eGFR >=60 mL/min/1.73m 111 96 WBC 3.70 - 11.00 k/uL 6.24 6.04 RBC 3.90 - 5.20 m/uL 5.00 4.97 Hemoglobin 11.5 - 15.5 g/dL 14.4 14.3 Hematocrit 36.0 - 46.0 % 45.2 44.8 MCV 80.0 - 100.0 fL 90.4 90.1 MCH 26.0 - 34.0 pg 28.8 28.8 MCHC 30.5 - 36.0 g/dL 31.9 31.9 RDW-CV 11.5 - 15.0 % 13.1 12.6 Platelet Count 150 - 400 k/uL 344 296 MPV 9.0 - 12.7 fL 8.6 (L) 8.9 (L) Absolute nRBC <0.01 k/uL <0.01 <0.01 Cholesterol, Total <200 mg/dL 195 191 Triglyceride <150 mg/dL 226 (H) 135 HDL Cholesterol >39 mg/dL 30 (L) 34 (L) Non HDL Cholesterol <130 mg/dL 165 (H) 157 (H) Fasting Time hrs 12 9 VLDL Cholesterol <30 mg/dL 45 (H) 27 TC:HDL Ratio <5.10 6.50 (H) 5.62 (H) LDL Cholesterol <100 mg/dL 120 (H) 130 (H) LDL:HDL Ratio <2.54 4.00 (H) 3.82 (H) Total Cholesterol, Nonfasting <200 mg/dL 197 169 Triglycerides, Nonfasting <150 mg/dL 199 (H) 226 (H) HDL Cholesterol, Nonfasting >39 mg/dL 31 (L) 30 (L) LDL Cholesterol, Nonfasting <100 mg/dL 126 (H) 94 Non HDL Cholesterol, Nonfasting <130 mg/dL 166 (H) 139 (H) VLDL Cholesterol, Nonfasting <30 mg/dL 40 (H) 45 (H) Total Chol/HDL Ratio, Nonfasting <5.10 mg/dL 6.35 (H) 5.63 (H) LDL/HDL Ratio, Nonfasting <2.54 mg/dL 4.06 (H) 3.13 (H) Hemoglobin A1C 4.3 - 5.6 % 5.5 5.3 Estimated Average Glucose mg/dL 111 105 The 10-year ASCVD risk score (Dany VITALE, et al., 2019) is: 1.4% Values used to calculate the score: Age: 42 years Sex: Female Is Non- : No Diabetic: No Tobacco smoker: No Systolic Blood Pressure: 120 mmHg Is BP treated: No HDL Cholesterol: 34 mg/dL Total Cholesterol: 191 mg/dL Assessment and Plan Encounter Diagnosis ICD-10-CM 1. Intellectual disability F79 Stable with present care 2. Dyslipidemia E78.5 TG now <150; HDL up to 24; LDL not <100 but ASCVD 10 year risk <5% 3. Abnormal gait R26.9 Gait belt helps per caregiver; patient exercises routinely 4. Swallowing problem R13.10 Doing well off bread 5. Dysmetabolic syndrome E88.81 Glucose and HgA1C no within normal range 6. Nystagmus H55.00 Chronic but appears to be compensating for this without needing glasses. Seems to use finger in front of eyes to help Above issues addressed with patient. Patient involved in shared decision making for management of medical issues. History and medications reviewed. Epic updated as needed Refills and/or prescriptions taken care of and meds adjusted as indicated after reviewed history, exam and labs. Health Maintenance reviewed. Updated record and/or ordered tests as recorded. Encouraged on efforts at healthy diet and regular exercise and adequate sleep. Stay on same meds. Doing well with caregiver. Continue present management. Romy Greer MD documented in this encounter [facility] 05-13-2023 History of Presen t illness Narrative ASSESSMENT/PLAN: 1. 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 Infantile cerebral palsy (HCC) - ICD9: 343.9, ICD10: G80.9 3. Nystagmus - ICD9: 379.50, ICD10: H55.00 - mild right face turn - poor vision for whole life per implement mechanic. Patient is non-verbal - unable to visualize peripheral retina due to cooperation - discussed low vision. She has never done well with glasses - breaks frequently and she has not noticed a significant improvement in her vision with glasses. Discussed significant increase in her script. Would like her to try glasses but if she does not wear them, then it is likely her low vision from optic atrophy that is limiting her vision. 4. Myopia of both eyes - ICD9: 367.1, ICD10: H52.13 5. Regular astigmatism of both eyes - ICD9: 367.21, - significant increase in myopic astigmatism, bilateral - update glasses and try to wear Follow-up in 2 years sooner PRN I have confirmed and edited as necessary the relevant ophthalmic history, ROS, and the neuro exam findings as obtained by others. I have seen and examined this patient. I have discussed the case and the management of this patient's care with the Resident/Fellow, if applicable. I also have reviewed and agree with the assessment and plan as stated above and agree with all of its relevant components. Rosa Isela Barbour MD May 13, 2023 2:59 PM documented in this encounter [facility] 04-25-2023 Procedure note [facility] 04-19-2023 Miscellaneous Notes Nayeli calls back and notified that PT referral placed. Nayeli voices understanding. Nayeli transferred to schedule appointment. Alecia Mcduffie RN Left message to call & speak to nurse. Sonya Magaña LPN VM left for Nayeli, to call PCP office for message below. Lamar Crsos RN We can see if PT would helpful for this, referral placed. Pt's Guardian Nayeli Bradley calling and states patient uses a gait belt however Nayeli needs training on use of gait belt. Nayeli asking if how she can get gait belt training with patient? Asking if this could be done with a Physical Therapy referral? If so, asking PCP to place order. Please call Nayeli back with response and assist with scheduling if needed. Lamar Cross RN documented in this encounter [facility] 04-04-2023 Miscellaneous Notes Left voicemail message on [facility]'s machine that we had reached out to patient's mom with no response. Images from the original note were not included. Miranda Calderon MD You; Rosa Isela Barbour MD; Amando Plummer MD; Miguel Krishna MD; Yamilex Christian; Marlon Agrawal MD; Aline Dumont 8 minutes ago (12:35 PM) Also happy to help if scheduling on a Saturday works out better Thank you Miranda Calderon MD Images from the original note were not included. Miranda Calderon MD You; Rosa Isela Barbour MD; Amando Plummer MD; Elizabeth Krishna MD; Pedro Pablo Christian; Marlon Agrawal MD; Aline Dumont 6 minutes ago (12:35 PM) Also happy to help if scheduling on a Saturday works out better Thank you Miranda Calderon MD Images from the original note were not included. MD Rosa Isela Workman MD 3 minutes ago (12:39 PM) Thanks!! Rosa Isela Barbour MD You; Amando Plummer MD; Miguel Krishna MD; Yamilex George; Pedro Pablo Christian; Marlon Meehan; Miranda Calderon MD; Gregory Agrawal MD; Aline Dumont 24 minutes ago (12:18 PM) Sure, we're happy to help. I tried calling the 2 phone numbers listed for the patient and left a voice message to try to get a little more information about the patient and see if we could attempt an in-office exam or if we should go straight to an EUA. Amando Plummer MD You; Miguel Kirshna MD; Yamilex George; Pedro Pablo Christian; Marlon Meehan; Rosa Isela Barbour MD; Miranda Calderon MD; Gregory Agrawal MD 34 minutes ago (12:07 PM) Basically, this is a developmentally delayed patient that needs an EUA and retinoscopy. Could any of our pediatric ophthalmologists possibly assist? Not sure if an office visit is worth attempting. Images from the original note were not included. New Patient Li, [facility]: [phone] [facility] is requesting an exam under sedation for this patient, notes are in Epic. Please advise. documented in this encounter [facility] 03-28-2023 Miscellaneous Notes Received outside records from [facility]. Patient hasn't been scheduled with physician yet sent to scanning. documented in this encounter [facility] 01-28-2023 Miscellaneous Notes Okayed Patient has been identified by name and date of : Yes, Provider Date Time Pharmacy phones for refill(s): Requested Prescriptions Pending Prescriptions Disp Refills escitalopram oxalate (LEXAPRO) 10 mg tablet 30 tablet 5 Sig: Take 1 tablet by mouth once daily. Date of last office visit with pcp: 01/23/23 Date of last office visit in primary care: Last 2 Encounter Wt Readings: Date: Wt: 01/23/2023 58.5 kg (129 lb) 01/22/2023 59.4 kg (131 lb) Previous labs/tests for medication: Not applicable Please advise. Thank you. Jillian Kim RN documented in this encounter [facility] 01-23-2023 History of Presen t illness Narrative This note was created using [employer]. Subjective Ratna Ray is a 42 year old female. No chief complaint on file. SUBJECTIVE: Ratna Ray is a 42 year old year old lady here today for follow up appointment for review of medical conditions. Was not given anything extra for symptoms at yesterday. Tested for COVID and influenza--negative. Eats during the day okay. Morning has thick mucus and throws up the mucus. This is as before with prior bacterial sinus infection. Drainage is now yellow and green color. Not clearing up. 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 Replaces ranitidine escitalopram oxalate (LEXAPRO) 10 mg tablet Take 1 tablet by mouth once daily. Diaper,Brief, Adult,Disposable (BRIEFS EXTRA LARGE) 1 Units as needed. Diaper,Brief, Adult,Disposable (ADULT BRIEF - EXTRA LARGE) 1 Units as needed. mupirocin (BACTROBAN) 2 % ointment Apply 1 application to affected area twice daily. until rash clears and then discontinue. for facial rash (Patient taking differently: Apply 1 application to affected area twice daily. until rash clears and then discontinue. for facial rash Uses when patient breaks out at time of Menses) sodium chloride (AYR, OCEAN) 0.65 % nasal spray Use 1 [place] in the nose as needed. pseudoephedrine (SUDAFED) 30 mg tablet Take 1 tablet by mouth every 4 hours as needed for Cold/Allergy Symptoms. ibuprofen (MOTRIN) 400 mg tablet Take 400 mg by mouth every 6 hours as needed. acetaminophen (TYLENOL EXTRA STRENGTH) 500 mg tablet Take 1 tablet by mouth every 4 hours as needed for Pain. levocetirizine 5 mg tablet TAKE 1 TABLET BY MOUTH ONCE DAILY. FOR ALLERGY SYMPTOMS triamcinolone acetonide (KENALOG) 0.1 % cream Apply 1 application to affected area three times daily. Apply sparingly to area for rash/itching. (Patient not taking: No sig reported) No current facility-administered medications for this visit. Review of Systems Objective BP 122/68 Pulse 109 Temp 36.7 C (98 F) Resp 18 Wt 58.5 kg (129 lb) LMP 01/02/2023 (Approximate) SpO2 96% BMI 30.54 kg/m Physical Exam Constitutional: Appearance: Normal appearance. HENT: Head: Normocephalic. Comments: Tender over maxillary sinuses (grimaces with palpation) Eyes: Conjunctiva/sclera: Conjunctivae normal. Cardiovascular: Rate and Rhythm: Normal rate and regular rhythm. Heart sounds: Normal heart sounds. Pulmonary: Effort: Pulmonary effort is normal. Breath sounds: Normal breath sounds. Skin: General: Skin is warm and dry. Neurological: General: No focal deficit present. Mental Status: She is alert and oriented to person, place, and time. Psychiatric: Mood and Affect: Mood normal. Behavior: Behavior normal. Thought Content: Thought content normal. Judgment: Judgment normal. Assessment and Plan Encounter Diagnosis ICD-10-CM 1. Acute non-recurrent maxillary sinusitis J01.00 amoxicillin (AMOXIL) 875 mg tablet 2. Antibiotic-induced yeast infection B37.9 fluconazole (DIFLUCAN) 150 mg tablet T36.95XA Above issues addressed with patient. Patient involved in shared decision making for management of medical issues. History and medications reviewed. Epic updated as needed Refills and/or prescriptions taken care of and meds adjusted as indicated after reviewed history, exam and labs. Noted somewhat worse compared to yesterday with vomiting after all the mucus builds up overnight. Has had prior issue with sinusitis not resolving without antibiotic. Tender over sinuses now. Will try nasal steroid. Can use med routinely till symptoms improve/resolve, then use as needed. Continue mucinex. Can take decongestant that has at home (pseudoephedrine). Romy Greer MD documented in this encounter [facility] 01-22-2023 Instructions Amando Angulo APRN.ZONING ENGINEER - 01/22/2023 3:36 PM EDT How to Manage Common Symptoms Associated with COVID for Adults Fever- Fever is a temperature over 100.4 F and can occur when the body is fighting an infection. To help treat a fever: Drink plenty of fluids and stay well hydrated. Eat small amounts of easy to digest food. Rest. Your body needs rest to recover, but getting up and moving around the house frequently is a good idea. You should try to continue doing your normal daily activities (bathing, toileting, grooming, cooking), though you will probably feel tired, and need to rest often. Avoid any heavy activity or exercise, as this will increase your body temperature. Dress in light clothing and stay covered in a light sheet. Keep the room temperature cool. Take a slightly warm (not cold or cool) bath, or apply damp washcloths to the forehead and wrists. Cough- Cough is a common symptom associated with COVID and can be bothersome. To help treat a cough: Stay well hydrated. Try warm water or tea with lemon and/or honey to help soothe the cough. Use a humidifier to add moisture to the air. Try a product with menthol, like a cough drop or a rub for your chest such as Vicks, which can help reduce cough. Try cough drops. Avoid smoking and other strong odors or perfumes. Try breathing exercises to keep your lungs open and clear. Take a big deep breath through your nose and hold for 5 seconds before slowly releasing. Repeat frequently, while you are awake. Congestion- Runny nose or nasal congestion can occur with COVID. Treatment can help relieve symptoms: Try OTC nasal saline spray, or nasal saline rinse to relieve mucus congestion. Nasal strips can help keep nasal passages open, to increase airflow. Elevating your head with an extra pillow in bed can help reduce congestion. Using a humidifier can increase moisture in the air, and make breathing easier. Sore Throat- Another common symptom with COVID, can be managed at home by: Stay well hydrated. Gargle with salt water - mix teaspoon salt with 1 cup of warm water and gargle. This helps to loosen mucus in the back of the throat and may reduce discomfort. Try ice chips, popsicles or lozenges to soothe the throat. Nausea/Vomiting/Diarrhea- These are common symptoms, and staying hydrated is most important. If you are nauseous or vomiting, start with small sips of water every 10-15 minutes and increase as tolerated. You can try sucking an ice cube too. If tolerating, you can try pedialyte or Gatorade, or flat sprite or zander-marck. Start slowly and increase as you are able to. Instead of meals, try smaller, more frequent snacks. Try eating bland foods like crackers, toast, rice, and applesauce. Avoid spicy, greasy or fried foods and dairy containing foods. Even if you aren't feeling hungry due to lack of smell or taste, it is important to try to take in some food when you are able. After drinking and eating, rest in an upright position for up to two hours as needed to help decrease nauseous feelings. Try closing your eyes, avoid moving and watching TV. Avoid strong odors that can make you feel more nauseated. When to seek emergency medical attention Look for emergency warning signs for COVID-19. If having any of these symptoms, seek emergency medical care immediately: Trouble breathing Persistent pain or pressure in the chest New confusion Inability to wake or stay awake Bluish lips or face *This list is not all possible symptoms. Please call your medical provider for any other symptoms that are severe or concerning to you. documented in this encounter [facility] 01-22-2023 History of Presen t illness Narrative Subjective HPI Nontoxic-appearing female presents urgent care chief complaint sinus pressure drainage. Caregiver states patient has had history of sinus infections this is similar. Did vomit once today and once yesterday. No blood in vomit. Has not vomited since. Has been able to keep down fluids and soft foods today. No known sick contacts. Does live in a [place]. Denies any fever body aches chills productive cough chest pain shortness of breath pleuritic pain hemoptysis nausea abdominal pain change in bowel or bladder habits. Past medical history prescription medication use and allergies reviewed. 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 Replaces ranitidine levocetirizine 5 mg tablet TAKE 1 TABLET BY MOUTH ONCE DAILY. FOR ALLERGY SYMPTOMS escitalopram oxalate (LEXAPRO) 10 mg tablet Take 1 tablet by mouth once daily. Diaper,Brief, Adult,Disposable (BRIEFS EXTRA LARGE) 1 Units as needed. Diaper,Brief, Adult,Disposable (ADULT BRIEF - EXTRA LARGE) 1 Units as needed. mupirocin (BACTROBAN) 2 % ointment Apply 1 application to affected area twice daily. until rash clears and then discontinue. for facial rash (Patient taking differently: Apply 1 application to affected area twice daily. until rash clears and then discontinue. for facial rash Uses when patient breaks out at time of Menses) sodium chloride (AYR, OCEAN) 0.65 % nasal spray Use 1 [place] in the nose as needed. pseudoephedrine (SUDAFED) 30 mg tablet Take 1 tablet by mouth every 4 hours as needed for Cold/Allergy Symptoms. ibuprofen (MOTRIN) 400 mg tablet Take 400 mg by mouth every 6 hours as needed. acetaminophen (TYLENOL EXTRA STRENGTH) 500 mg tablet Take 1 tablet by mouth every 4 hours as needed for Pain. triamcinolone acetonide (KENALOG) 0.1 % cream Apply 1 application to affected area three times daily. Apply sparingly to area for rash/itching. (Patient not taking: No sig reported) FAMILY HISTORY Adopted: Yes Problem Relation Age of Onset other (Adopted Status - Unknown) Other Social History Tobacco Use Smoking status: Never Smokeless tobacco: Former Vaping Use Vaping Use: Never used Substance Use Topics Alcohol use: No Drug use: No BP 124/72 Pulse 102 Temp 37.1 C (98.8 F) Resp 20 Wt 59.4 kg (131 lb) LMP 11/09/2022 (Approximate) SpO2 95% BMI 31.01 kg/m Review of Systems Constitutional: Negative for chills, fever and malaise/fatigue. HENT: Positive for congestion. Negative for ear discharge, ear pain, sinus pain and sore throat. Eyes: Negative for blurred vision, pain, discharge and redness. Respiratory: Negative for cough, hemoptysis, sputum production, shortness of breath, wheezing and stridor. Cardiovascular: Negative for chest pain. Gastrointestinal: Negative for abdominal pain, diarrhea, nausea and vomiting. Musculoskeletal: Negative for myalgias. Skin: Negative for itching and rash. Neurological: Negative for headaches. Objective Physical Exam Constitutional: General: She is not in acute distress. Appearance: She is not diaphoretic. HENT: Head: Normocephalic. Nose: Rhinorrhea present. Mouth/Throat: Mouth: Mucous membranes are moist. Pharynx: Oropharynx is clear. No oropharyngeal exudate or posterior oropharyngeal erythema. Eyes: Conjunctiva/sclera: Conjunctivae normal. Pupils: Pupils are equal, round, and reactive to light. Cardiovascular: Rate and Rhythm: Normal rate and regular rhythm. Heart sounds: Normal heart sounds. Pulmonary: Effort: Pulmonary effort is normal. No tachypnea, accessory muscle usage or respiratory distress. Breath sounds: Normal breath sounds. No stridor. No wheezing, rhonchi or rales. Abdominal: Palpations: Abdomen is soft. Tenderness: There is no abdominal tenderness. There is no guarding or rebound. Musculoskeletal: Cervical back: Normal range of motion and neck supple. No rigidity or tenderness. Lymphadenopathy: Cervical: No cervical adenopathy. Skin: General: Skin is warm and dry. Neurological: Mental Status: She is alert and oriented to person, place, and time. ASSESSMENT/PLAN: 1. Viral illness - ICD9: 079.99, ICD10: B34.9 (primary diagnosis) 2. Suspected COVID-19 virus infection - ICD9: V01.79, ICD10: Z20.822 - COVID WITH FLUA+B, ROUTINE Nontoxic-appearing. Slightly elevated heart rate. Differentials include viral URI, COVID-19, pneumonia, viral gastroenteritis. No evidence of bacterial infection today. Treat conservatively at this time. Treat as viral etiology. Test for COVID-19 and influenza. COVID-19 influenza test negative. If symptoms or not improving follow-up with PCP as scheduled. Supportive therapies discussed. Red flags prompt reevaluation discussed. Be seen urgent care or ED for any new worsening or symptoms lasting along anticipated. Caregiver verbalized understand agrees with plan of care. Amando Angulo APRN.MAYLIN documented in this encounter [facility] 01-21-2023 Miscellaneous Notes Nayeli notified of results and provider message. Marilee Ramos LPN Message left for Richardson Tyler to call office for result of mammogram. Please call patient and let her know her recent mammogram was without any issues. We recommend a repeat mammogram in 1 year per screening guidelines. Please let me know if any questions or concerns. Thanks. Marycruz Russell APRN.MAYLIN documented in this encounter [facility] 01-17-2023 History of Presen t illness Narrative Radiology Service Progress Note PATIENT NAME: Ratna Ray DATE OF SERVICE: January 17, 2023 TIME: 1:57 PM PATIENT IDENTITY VERIFICATION COMPLETED USING TWO (2) IDENTIFIERS: Name and Date of confirmed by patient verbally. FALL SCREENING: Has the patient had 2 falls in the last year or 1 fall with injury or currently using an Ambulatory Assistive Device (Walker, Cane, Wheelchair, Crutches, etc.)? No PATIENT GENDER DATA: Female. status: : No status: NO. PATIENT RELEVANT IMPLANT DATA REVIEWED: Not Applicable RADIOLOGY DEPARTMENT: Mammography PERIPHERAL IV DATA: Not applicable SIGNED BY: RT Shira(R) January 17, 2023 1:57 PM documented in this encounter [facility] 01-17-2023 Miscellaneous Notes Benign findings, 1 year follow-up screening documented in this encounter [facility] 12-18-2022 Miscellaneous Notes Last seen pcp 11/14/22 Next appt is 06/11/23. Patient has been identified by name and date of : Yes Requested Prescriptions Pending Prescriptions Disp Refills EPINEPHrine (EPIPEN) 0.3 mg/0.3 mL auto-injector 2 Each 1 Sig: use as directed incase of bee sting, Inject 0.3 ml Intramuscularly RX INSTRUCTIONS: Please send today, current Epi pen has . Pharmacy initiated this request. No need to notify patient. Sandra Begum Pss documented in this encounter [facility] 11-09-2022 Note Patient: Ratna Swain deyvi Procedure Summary Date: 11/09/22 Room / Location: [address] Operating Room Anesthesia Start: 737 Anesthesia Stop: 934 Procedure: periodontal surgery, restorative dentistry, limited oral surgery (Mouth) Diagnosis: Dental decay (Dental decay [K02.9]) Surgeons: Laurie Chavez DDS Responsible Provider: Dewayne Soto MD Anesthesia Type: general anesthesia ASA Status: 3 Anesthesia Type: general anesthesia Vitals Value Taken Time BP 117/80 11/09/22 0935 Temp 97 11/09/22 0935 Pulse 80 11/09/22 0935 Resp 15 11/09/22 0935 SpO2 100 11/09/22 0935 Anesthesia Post Evaluation Patient location during evaluation: PACU Patient participation: complete - patient participated Level of consciousness: awake and alert Pain management: satisfactory to patient Airway patency: patent Dental Injury: no Cardiovascular status: acceptable, blood pressure returned to baseline and hemodynamically stable Respiratory status: acceptable and spontaneous ventilation Hydration status: euvolemic Nausea/Vomiting: controlled No notable events documented. Patient can be discharged once all PACU criteria has been met. [facility] 11-09-2022 Note Patient: Ratna Swain deyvi Procedure Summary Date: 11/09/22 Room / Location: [address] Operating Room Anesthesia Start: 737 Anesthesia Stop: 934 Procedure: periodontal surgery, restorative dentistry, limited oral surgery (Mouth) Diagnosis: Dental decay (Dental decay [K02.9]) Surgeons: Laurie Chavez DDS Responsible Provider: Dewayne Soto MD Anesthesia Type: general anesthesia ASA Status: 3 Anesthesia Type: general anesthesia Vitals Value Taken Time BP 117/80 11/09/22 0935 Temp 97 11/09/22 0935 Pulse 80 11/09/22 0935 Resp 15 11/09/22 0935 SpO2 100 11/09/22 0935 Anesthesia Post Evaluation Patient location during evaluation: PACU Patient participation: complete - patient participated Level of consciousness: awake and alert Pain management: satisfactory to patient Multimodal analgesia pain management approach Airway patency: patent Two or more strategies used to mitigate risk of obstructive sleep apnea Cardiovascular status: acceptable and hemodynamically stable Respiratory status: acceptable Hydration status: acceptable No notable events documented. MIPS #430 PONV Patient received an inhalational anesthetic (4554F) Patient exhibits three or more risk factors for PONV (4556F) Patient received at leaset 2 prophylactic Rx PONV anti-emtic agents of different classes preop and/or intraop (G9775) MIPS # 424 Perioperative Temperature Management Anesthesia time was 60 minutes or longer (4255F) Anesthesai administered was General (inhalational or TIVA) or Neuraxial block (X0424) At least one body temperature greater than 95.8F/35.5C achieved within the 30 mins immediately prior to or the 15 minutes immediately following anesthesia end time (G9771) MIPS #477 Multimodal Pain Management Not emergent case Patient was administered multimodal pain management (two or more drugs and/or interventions excluding systemic opioids) in the periopeartive period occurring at some time between 6 hours prior to anesthesia start time until discharged from PACU (G2148) MIPS #404 Anesthesiology Smoking Abstinence The patient is not a current smoker (e.g. cigarette, cigar, pipe, e-cigarette/vaping/marijuana) I completed my handoff to the receiving clinician during which we: 1. Identified the patient 2. Identified the responsible provider 3. Reviewed the pertinent medical history 4. Discussed the surgical course 5. Reviewed intra-op anesthesia management and issues during anesthesia 6. Set expectations for post-procedure period 7. Allowed opportunity for questions and acknowledgement of understanding. [facility] 11-09-2022 Note Airway Date/Time: 11/09/2022 7:47 AM Urgency: scheduled General Information and Staff Patient location during procedure: Procedural Resident/FAMILY NURSE PRACTITIONER: Kathia Olson APRN - FAMILY NURSE PRACTITIONER Performed: FAMILY NURSE PRACTITIONER Indications and Patient Condition Indications for airway management: anesthesia Sedation level: Asleep Preoxygenated: yes Patient position: C spine neutral MILS maintained throughout Mask difficulty assessment: 1 - vent by mask Final Airway Details Final airway type: endotracheal airway Successful airway: nasal DENISE Cuffed: yes Successful intubation technique: video laryngoscopy (Shayy Forceps) Endotracheal tube insertion site: right naris Blade: [place] scope Blade size: #3 ETT size (mm): 6.0 Cormack-Lehane Classification: grade I - full view of glottis Placement verified by: chest auscultation and capnometry Number of attempts at approach: 1 [facility] 11-09-2022 Note Formatting of this n ote might be different from the original. Went over discharge instructions with caregiver. She verbalized understanding. Patient is doing well and preparing for discharge [facility] 11-09-2022 Note Formatting of this n ote might be different from the original. Went over discharge instructions with caregiver. She verbalized understanding. Patient is doing well and preparing for discharge [facility] 11-09-2022 Miscellaneous Notes Went over discharge instructions with caregiver. She verbalized understanding. Patient is doing well and preparing for discharge documented in this encounter [facility] 11-09-2022 Hospital Discharg e instructions Shashank Schneider DDS - 11/09/2022 9:31 AM EST [facility] POST-OP INSTRUCTIONS DIET: Start with liquids and advance to regular foods if no nausea or vomiting. A soft diet is recommended for three days. CARE OF SURGICAL SITE: Avoid vigorous rinsing and spitting, drinking through a straw, carbonated beverages, and hard or crunchy foods for three days. If any stiches were placed they should fall out between 2-8 days. TO REDUCE SWELLING: Apply ice to the affected area for 24 hours. Apply for 10 minutes on, 20 minutes off. Keep the head elevated above heart level. MEDICATION: Home medication list has been reviewed and all medications are to be taken as written with the addition of Ibuprofen, 600mg, 16 tabs, Take 1 q6-8h for pain, 0 refills and [place] 5/325, 10 (ten) tabs, Take 1 q4-6h for pain, 0 refills. ACTIVITY: All normal activities can be resumed on Saturday. FOLLOW-UP: Call the dental clinic at or have the hospital teletypesetter operator at page the dental resident on-call if any problems or questions arise. Routine follow-up appointment in one year. documented in this encounter [facility] 11-09-2022 Note History & Physical a nd Clearance Name: Ratna Ray : 1980 (Age-41 y.o.) Date of Service: Pt seen/examined on 11/09/2022 Chief Complaint: Dental decay History Of Present Illness: We are asked to see/evaluate Ratna Ray, a 41 y.o. female for pre-procedure evaluation prior to periodontal surgery, restorative dentistry, limited oral surgery. Ratna has a history of cerebral palsy and does not tolerate traditional dental care. She is here today for the above procedure with Dr. Chavez. She is accompanied by her caregiver, Nayeli. Nayeli provides the history and ROS. 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 Authorizing Provider acetaminophen (Tylenol) 325 MG capsule Take by mouth every 6 hours as needed for mild pain (1-3). Yes Historical Provider, cetirizine (ZyrTEC) 5 MG tablet Take 10 mg by mouth Nightly. Yes Historical Provider, escitalopram (Lexapro) 10 MG tablet Take 10 mg by mouth Nightly. Yes Historical Provider, famotidine (Pepcid) 40 MG tablet Take by mouth Nightly. Yes Historical Provider, ibuprofen 400 MG tablet Take 400 mg by mouth every 6 hours as needed for moderate pain (4-6). Yes Historical Provider, EPINEPHrine (AUVI-Q) 0.15 mg/0.15 mL IJ solution auto-injector injection Inject into the shoulder, thigh, or buttocks. Historical Provider, ANTICOAGULATION: No CHRONIC STEROID USE: No Allergies: Bee venom Social History: TOBACCO: reports that she has never smoked. She has never used smokeless tobacco. ETOH: reports no history of alcohol use. Social History Substance and Sexual Activity Drug Use Never Family History: No family history on file. REVIEW OF SYSTEMS: Review of Systems Constitutional: Negative for activity change and appetite change. HENT: Positive for dental problem. Respiratory: Negative for cough. Cardiovascular: Negative for leg swelling. Gastrointestinal: Negative for abdominal pain. Genitourinary: Negative for difficulty urinating. Musculoskeletal: Negative for arthralgias. Skin: Negative for wound. Neurological: Positive for speech difficulty. Negative for dizziness and headaches. Psychiatric/Behavioral: Negative for agitation. The patient is nervous/anxious. PHYSICAL EXAM: Vitals: BP (!) 147/92 Pulse 95 Temp 37.3 ?C (99.1 ?F) (Temporal) Resp 16 Ht 1.372 m (4' 6) Wt 65.8 kg (145 lb) LMP (LMP Unknown) SpO2 99% BMI 34.96 kg/m? BMI Classification: Obese (BMI 30.0-39.9) Physical Exam Vitals and nursing note reviewed. Constitutional: General: She is not in acute distress. Appearance: She is obese. HENT: Head: Normocephalic and atraumatic. Cardiovascular: Rate and Rhythm: Normal rate and regular rhythm. Pulses: Normal pulses. Heart sounds: Normal heart sounds. No murmur heard. No gallop. Pulmonary: Effort: Pulmonary effort is normal. No respiratory distress. Breath sounds: Normal breath sounds. No wheezing or rales. Abdominal: Palpations: Abdomen is soft. Tenderness: There is no abdominal tenderness. There is no guarding. Musculoskeletal: General: Normal range of motion. Cervical back: Normal range of motion and neck supple. Right lower leg: No edema. Left lower leg: No edema. Skin: General: Skin is warm and dry. Capillary Refill: Capillary refill takes less than 2 seconds. Neurological: General: No focal deficit present. Mental Status: She is alert and oriented to person, place, and time. Sensory: No sensory deficit. Motor: No weakness. Psychiatric: Mood and Affect: Mood is anxious. Speech: Speech is delayed. Behavior: Behavior is cooperative. Cognition and Memory: Cognition is impaired. Labs: No results found for: WBC, HGB, HCT, MCV, PLT No results found for: NA, K, CL, CO2, BUN, CREATININE, GLUCOSE, CALCIUM, PROT, BILITOT, ALKPHOS, AST, ALT, LABGLOM, AGRATIO, GLOB EKG: none on file ECHO and EF:None on file No components found for: LVEF, LVEFMODE ASSESSMENT/PLAN: Patient is considered low risk for this low/intermediate risk procedure/surgery with no reducible risk factors. Based on the above evaluation, the benefits of the planned procedure likely exceed the risks. The patient is medically optimized to proceed with the planned procedure without any further cardiopulmonary testing. 1) Dental decay -managed per Dr Chavez -to OR today for the above mentioned procedure 2) Cerebral palsy -lives with caregiver, Nayeli 3) GERD -taki (more content not included)... [facility] 01-27-2023 Note Patient: Ratna Brynn deyvi Procedure Information Date/Time: 11/09/22 0730 Procedure: periodontal surgery, restorative dentistry, limited oral surgery (Mouth) Location: [facility] OR [address] [place] [address] Operating Room Surgeons: Laurie Chavez DDS Relevant Problems No relevant active problems Past Medical History: Past Medical History: No date: Anxiety No date: Cerebral palsy (HCC) No date: Dental disease No date: GERD (gastroesophageal reflux disease) No date: Grinding teeth No date: Incontinence in female Comment: at times; wears depends undergarments No date: Non-verbal learning disorder Comment: able to answer yes or no with her hands; very cooperative Past Surgical History: Past Surgical History: No date: DENTAL SURGERY Social History: TOBACCO: reports that she has never smoked. She has never used smokeless tobacco. ETOH: reports no history of alcohol use. Social History Substance and Sexual Activity Drug Use Never Family History: No family history on file. Screening: Having periods Clinical information reviewed: Tobacco Allergies Meds Med Hx Surg Hx OB Status Fam Hx Soc Hx Physical Exam Airway Mallampati: III Neck ROM: full Mouth Open: limited Cardiovascular Dental (+) Poor Pulmonary Abdominal Anesthesia Plan ASA 3 general anesthesia The patient is not a current smoker. Anesthetic plan and risks discussed with patient. patient is NPO RONALDO Screening Labs: No results found for: WBC, HGB, HCT, MCV, PLT No results found for: NA, K, CL, CO2, BUN, CREATININE, GLUCOSE, CALCIUM, PROT, BILIRUBINFL, ALKPHOS, AST, ALT, EGFR, GLOB No echocardiogram results found for the past 14 days No results found for this or any previous visit. [facility] 11-09-2022 History and physical note History & Physical and Clearance Name: Ratna Ray : 1980 (Age-41 y.o.) Date of Service: Pt seen/examined on 11/09/2022 Chief Complaint: Dental decay History Of Present Illness: We are asked to see/evaluate Ratna Ray, a 41 y.o. female for pre-procedure evaluation prior to periodontal surgery, restorative dentistry, limited oral surgery. Ratna has a history of cerebral palsy and does not tolerate traditional dental care. She is here today for the above procedure with Dr. Chavez. She is accompanied by her caregiver, Nayeli. Nayeli provides the history and ROS. 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 Authorizing Provider acetaminophen (Tylenol) 325 MG capsule Take by mouth every 6 hours as needed for mild pain (1-3). Yes Historical Provider, cetirizine (ZyrTEC) 5 MG tablet Take 10 mg by mouth Nightly. Yes Historical Provider, escitalopram (Lexapro) 10 MG tablet Take 10 mg by mouth Nightly. Yes Historical Provider, famotidine (Pepcid) 40 MG tablet Take by mouth Nightly. Yes Historical Provider, ibuprofen 400 MG tablet Take 400 mg by mouth every 6 hours as needed for moderate pain (4-6). Yes Historical Provider, EPINEPHrine (AUVI-Q) 0.15 mg/0.15 mL IJ solution auto-injector injection Inject into the shoulder, thigh, or buttocks. Historical Provider, ANTICOAGULATION: No CHRONIC STEROID USE: No Allergies: Bee venom Social History: TOBACCO: reports that she has never smoked. She has never used smokeless tobacco. ETOH: reports no history of alcohol use. Social History Substance and Sexual Activity Drug Use Never Family History: No family history on file. REVIEW OF SYSTEMS: Review of Systems Constitutional: Negative for activity change and appetite change. HENT: Positive for dental problem. Respiratory: Negative for cough. Cardiovascular: Negative for leg swelling. Gastrointestinal: Negative for abdominal pain. Genitourinary: Negative for difficulty urinating. Musculoskeletal: Negative for arthralgias. Skin: Negative for wound. Neurological: Positive for speech difficulty. Negative for dizziness and headaches. Psychiatric/Behavioral: Negative for agitation. The patient is nervous/anxious. PHYSICAL EXAM: Vitals: BP (!) 147/92 Pulse 95 Temp 37.3 C (99.1 F) (Temporal) Resp 16 Ht 1.372 m (4' 6) Wt 65.8 kg (145 lb) LMP (LMP Unknown) SpO2 99% BMI 34.96 kg/m BMI Classification: Obese (BMI 30.0-39.9) Physical Exam Vitals and nursing note reviewed. Constitutional: General: She is not in acute distress. Appearance: She is obese. HENT: Head: Normocephalic and atraumatic. Cardiovascular: Rate and Rhythm: Normal rate and regular rhythm. Pulses: Normal pulses. Heart sounds: Normal heart sounds. No murmur heard. No gallop. Pulmonary: Effort: Pulmonary effort is normal. No respiratory distress. Breath sounds: Normal breath sounds. No wheezing or rales. Abdominal: Palpations: Abdomen is soft. Tenderness: There is no abdominal tenderness. There is no guarding. Musculoskeletal: General: Normal range of motion. Cervical back: Normal range of motion and neck supple. Right lower leg: No edema. Left lower leg: No edema. Skin: General: Skin is warm and dry. Capillary Refill: Capillary refill takes less than 2 seconds. Neurological: General: No focal deficit present. Mental Status: She is alert and oriented to person, place, and time. Sensory: No sensory deficit. Motor: No weakness. Psychiatric: Mood and Affect: Mood is anxious. Speech: Speech is delayed. Behavior: Behavior is cooperative. Cognition and Memory: Cognition is impaired. Labs: No results found for: WBC, HGB, HCT, MCV, PLT No results found for: NA, K, CL, CO2, BUN, CREATININE, GLUCOSE, CALCIUM, PROT, BILITOT, ALKPHOS, AST, ALT, LABGLOM, AGRATIO, GLOB EKG: none on file ECHO and EF:None on file No components found for: LVEF, LVEFMODE ASSESSMENT/PLAN: Patient is considered low risk for this low/intermediate risk procedure/surgery with no reducible risk factors. Based on the above evaluation, the benefits of the planned procedure likely exceed the risks. The patient is medically optimized to proceed with the planned procedure without any further cardiopulmonary testing. 1) Dental decay -managed per Dr Chavez -to OR today for the above mentioned procedure 2) Cerebral palsy -lives with caregiver, Nayeli 3) GERD -taking famotidine 4) Anxiety -taking lexapro 5) Elevated blood pressure without diagnosis of hypertension -encouraged lifestyle modification and follow up with PCP Labs Ordered: YES - EKG Ordered: NO Electronically signed by: Alondra Alex APRN - [facility] Date: [employer] Work Phone: 11-09-2022 History and physical note History & Physical and Clearance Name: Ratna Ray : 1980 (Age-41 y.o.) Date of Service: Pt seen/examined on 11/09/2022 Chief Complaint: Dental decay History Of Present Illness: We are asked to see/evaluate Ratna Ray, a 41 y.o. female for pre-procedure evaluation prior to periodontal surgery, restorative dentistry, limited oral surgery. Ratna has a history of cerebral palsy and does not tolerate traditional dental care. She is here today for the above procedure with Dr. Chavez. She is accompanied by her caregiver, Nayeli. Nayeli provides the history and ROS. 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 Authorizing Provider acetaminophen (Tylenol) 325 MG capsule Take by mouth every 6 hours as needed for mild pain (1-3). Yes Historical Provider, cetirizine (ZyrTEC) 5 MG tablet Take 10 mg by mouth Nightly. Yes Historical Provider, escitalopram (Lexapro) 10 MG tablet Take 10 mg by mouth Nightly. Yes Historical Provider, famotidine (Pepcid) 40 MG tablet Take by mouth Nightly. Yes Historical Provider, ibuprofen 400 MG tablet Take 400 mg by mouth every 6 hours as needed for moderate pain (4-6). Yes Historical Provider, EPINEPHrine (AUVI-Q) 0.15 mg/0.15 mL IJ solution auto-injector injection Inject into the shoulder, thigh, or buttocks. Historical Provider, ANTICOAGULATION: No CHRONIC STEROID USE: No Allergies: Bee venom Social History: TOBACCO: reports that she has never smoked. She has never used smokeless tobacco. ETOH: reports no history of alcohol use. Social History Substance and Sexual Activity Drug Use Never Family History: No family history on file. REVIEW OF SYSTEMS: Review of Systems Constitutional: Negative for activity change and appetite change. HENT: Positive for dental problem. Respiratory: Negative for cough. Cardiovascular: Negative for leg swelling. Gastrointestinal: Negative for abdominal pain. Genitourinary: Negative for difficulty urinating. Musculoskeletal: Negative for arthralgias. Skin: Negative for wound. Neurological: Positive for speech difficulty. Negative for dizziness and headaches. Psychiatric/Behavioral: Negative for agitation. The patient is nervous/anxious. PHYSICAL EXAM: Vitals: BP (!) 147/92 Pulse 95 Temp 37.3 C (99.1 F) (Temporal) Resp 16 Ht 1.372 m (4' 6) Wt 65.8 kg (145 lb) LMP (LMP Unknown) SpO2 99% BMI 34.96 kg/m BMI Classification: Obese (BMI 30.0-39.9) Physical Exam Vitals and nursing note reviewed. Constitutional: General: She is not in acute distress. Appearance: She is obese. HENT: Head: Normocephalic and atraumatic. Cardiovascular: Rate and Rhythm: Normal rate and regular rhythm. Pulses: Normal pulses. Heart sounds: Normal heart sounds. No murmur heard. No gallop. Pulmonary: Effort: Pulmonary effort is normal. No respiratory distress. Breath sounds: Normal breath sounds. No wheezing or rales. Abdominal: Palpations: Abdomen is soft. Tenderness: There is no abdominal tenderness. There is no guarding. Musculoskeletal: General: Normal range of motion. Cervical back: Normal range of motion and neck supple. Right lower leg: No edema. Left lower leg: No edema. Skin: General: Skin is warm and dry. Capillary Refill: Capillary refill takes less than 2 seconds. Neurological: General: No focal deficit present. Mental Status: She is alert and oriented to person, place, and time. Sensory: No sensory deficit. Motor: No weakness. Psychiatric: Mood and Affect: Mood is anxious. Speech: Speech is delayed. Behavior: Behavior is cooperative. Cognition and Memory: Cognition is impaired. Labs: No results found for: WBC, HGB, HCT, MCV, PLT No results found for: NA, K, CL, CO2, BUN, CREATININE, GLUCOSE, CALCIUM, PROT, BILITOT, ALKPHOS, AST, ALT, LABGLOM, AGRATIO, GLOB EKG: none on file ECHO and EF:None on file No components found for: LVEF, LVEFMODE ASSESSMENT/PLAN: Patient is considered low risk for this low/intermediate risk procedure/surgery with no reducible risk factors. Based on the above evaluation, the benefits of the planned procedure likely exceed the risks. The patient is medically optimized to proceed with the planned procedure without any further cardiopulmonary testing. 1) Dental decay -managed per Dr Chavez -to OR today for the above mentioned procedure 2) Cerebral palsy -lives with caregiver, Nayeli 3) GERD -taking famotidine 4) Anxiety -taking lexapro 5) Elevated blood pressure without diagnosis of hypertension -encouraged lifestyle modification and follow up with PCP Labs Ordered: YES - EKG Ordered: NO Electronically signed by: Alondra Alex APRN - [employer] Date: documented in this encounter [facility] 11-07-2022 Miscellaneous Notes Patient has been identified by name and date of : Yes, Provider Dr. Greer Date 11-07-22 Time 9:32 am Pharmacy phones for refill(s): Requested Prescriptions Pending Prescriptions Disp Refills famotidine (PEPCID) 40 mg tablet 30 tablet 11 Sig: Take 1 tablet by mouth daily at bedtime. Replaces ranitidine Date of last office visit with pcp: 05-08-22. Next appt: 11-14-22 Last 2 Encounter Wt Readings: Date: Wt: 05/08/2022 62.1 kg (137 lb) 11/03/2021 61.6 kg (135 lb 12.8 oz) Previous labs/tests for medication: Blood Pressure: BUN (mg/dL) Date Value 04/04/2022 9 09/26/2021 13 Sodium (mmol/L) Date Value 04/04/2022 139 09/26/2021 137 Last 1 Encounter BP Readings: Date: BP: 05/08/2022 112/80 Liver Function: ALT (U/L) Date Value 04/04/2022 18 09/26/2021 20 AST (U/L) Date Value 04/04/2022 22 09/26/2021 24 Please advise. Thank you. Tien Knowles RN documented in this encounter [facility] 11-02-2022 Note Patient: Ratna rae Procedure Information Date/Time: 11/02/22929 Procedure: PAT OPTIMIZATION CALL Location: [facility] Pre-Admit Testing Relevant Problems No relevant active problems Past Medical History: Past Medical History: No date: Anxiety No date: Cerebral palsy (HCC) No date: Dental disease No date: GERD (gastroesophageal reflux disease) No date: Grinding teeth No date: Incontinence in female Comment: at times; wears depends undergarments No date: Non-verbal learning disorder Comment: able to answer yes or no with her hands; very cooperative Past Surgical History: Past Surgical History: No date: DENTAL SURGERY Social History: TOBACCO: reports that she has never smoked. She has never used smokeless tobacco. ETOH: reports no history of alcohol use. Social History Substance and Sexual Activity Drug Use Never Family History: No family history on file. Screening: Having periods Clinical information reviewed: Tobacco Allergies Meds Med Hx Surg Hx OB Status Fam Hx Soc Hx Physical Exam Airway Mallampati: unable to assess Cardiovascular Dental Pulmonary Abdominal Anesthesia Plan ASA 3 general anesthesia (Phone call to implement mechanic) The patient is not a current smoker. General ERAS Non verbal Cerebral palsy grinds teeth RONALDO Screening Labs: No results found for: WBC, HGB, HCT, MCV, PLT No results found for: NA, K, CL, CO2, BUN, CREATININE, GLUCOSE, CALCIUM, PROT, BILIRUBINFL, ALKPHOS, AST, ALT, EGFR, GLOB No echocardiogram results found for the past 14 days No results found for this or any previous visit. [facility] 08-15-2022 Miscellaneous Notes Last office visit: 05/08/22 Next appointment scheduled: 11/14/2022 Patient has been identified by name and date of : Yes Last office visit in this department: 05/08/2022 RX INSTRUCTIONS: Patient aware RX will be sent to pharmacy. No need to notify patient. Patient phones requesting refills as follows: Requested Prescriptions Pending Prescriptions Disp Refills levocetirizine 5 mg tablet 28 tablet 5 Sig: TAKE 1 TABLET BY MOUTH ONCE DAILY. FOR ALLERGY SYMPTOMS escitalopram oxalate (LEXAPRO) 10 mg tablet 30 tablet 5 Sig: Take 1 tablet by mouth once daily. Please review and advise. Martina Bridges Pss documented in this encounter [facility] 03-06-2022 History of Presen t illness Narrative Patient presents for COVID booster. Denies any problems at this time. Tolerated injection well. Marychuy Campos LPN documented in this encounter [facility] 02-01-2022 Miscellaneous Notes At test desk operator to be picked up Addended by: MELISA JOEL on: 02/01/2022 03:36 PM Modules accepted: Orders Done Melisa Joel MD Addended by: BELEN HOUSE RN on: 02/01/2022 03:31 PM Modules accepted: Orders Patients care provider Missy called back and she would like a paper script for this prescription and she will pick it up at the test desk operator. Please refill pended Rx. Belen House RN [place] [facility] calling stating that they do no fill adult diapers at their pharmacy. Left message at number provided below for provider Nayeli. Belen House RN Done Melisa Joel MD Please order & I will sign Melsia Joel MD Please see [facility] nurse request below. Wilma Castillo LPN Daycare provider calling and needing Rx for Adult incontinence briefs, size Xlg. Provider Nayeli can be reached at [phone]. Wilma Castillo LPN documented in this encounter [facility] Evaluation note Diagnosis Need for vaccination- Primary Need for prophylactic vaccination and inoculation against unspecified single disease [facility] Bee sting allergy Allergy to insects and arachnids [facility] Viral illness- Primary Unspecified viral infection, in conditions classified elsewhere and of unspecified site Suspected COVID-19 virus infection [facility] Diagnosis Acute non-recurrent maxillary sinusitis- Primary Antibiotic-induced yeast infection Candidiasis of unspecified site [facility] Work Phone: Evaluation note* Diagnosis Fall, subsequent encounter- Primary Abnormal gait Abnormality of gait Intellectual disability Unspecified intellectual disabilities Infantile cerebral palsy (HCC) Infantile cerebral palsy, unspecified [facility] Diagnosis Other optic atrophy, bilateral- Primary Infantile cerebral palsy (HCC) Infantile cerebral palsy, unspecified Nystagmus Nystagmus, unspecified Myopia of both eyes Myopia Regular astigmatism of both eyes Regular astigmatism [facility] Diagnosis Intellectual disability- Primary Unspecified intellectual disabilities Dyslipidemia Other and unspecified hyperlipidemia Abnormal gait Abnormality of gait Swallowing problem Dysphagia, unspecified Dysmetabolic syndrome Dysmetabolic Syndrome X Nystagmus Nystagmus, unspecified [facility] Diagnosis Breast cancer screening by mammogram Dense breasts Inconclusive mammogram [facility] Diagnosis Encounter for routine gynecologic examination in Medicare patient- Primary Screening for cervical cancer Screening for malignant neoplasm of the cervix Encounter for screening mammogram for breast cancer Heterogeneously dense tissue of both breasts on mammography [facility] Diagnosis Intellectual disability- Primary Unspecified intellectual disabilities Dysmetabolic syndrome Dysmetabolic Syndrome X Dyslipidemia Other and unspecified hyperlipidemia IFG (impaired fasting glucose) Impaired fasting glucose Infantile cerebral palsy (HCC) Infantile cerebral palsy, unspecified Abnormal gait Abnormality of gait Swallowing problem Dysphagia, unspecified Rash and nonspecific skin eruption Rash and other nonspecific skin eruption Encounter for therapeutic drug monitoring documented in this encounter [facility] note* Diagnosis Encounter for routine gynecologic examination in Medicare patient Encounter for screening mammogram for breast cancer Heterogeneously dense tissue of both breasts on mammography [facility]* Diagnosis Infantile cerebral palsy (HCC)- Primary Infantile cerebral palsy, unspecified Dyslipidemia Other and unspecified hyperlipidemia Dysmetabolic syndrome Dysmetabolic Syndrome X Bee sting allergy Allergy to insects and arachnids Screening for depression Encounter for immunization Need for other specified prophylactic vaccination against single bacterial disease Screening for colon cancer Special screening for malignant neoplasms, colon Encounter for long-term current use of medication [facility]* Diagnosis Pain- Primary Generalized pain [facility] Diagnosis Infantile cerebral palsy (HCC)- Primary Infantile cerebral palsy, unspecified Intellectual disability Unspecified intellectual disabilities Abnormal gait Abnormality of gait Swallowing problem Dysphagia, unspecified Dyslipidemia Other and unspecified hyperlipidemia IFG (impaired fasting glucose) Impaired fasting glucose [facility]* Diagnosis Breast screening- Primary Breast screening, unspecified Encounter for screening mammogram for breast cancer [facility]* Diagnosis Encounter for gynecological examination (general) (routine) without abnormal findings- Primary Encounter for screening mammogram for breast cancer [facility] Diagnosis Encounter for screening mammogram for breast cancer documented in this encounter [facility] Discharge instructions Additional Instructions Thank you for trusting us with your care today! Please take Tylenol (2 pills, 650 mg), ibuprofen (2 pills, 400 mg) every 6 hours as needed for pain and fever control. Please return to the emergency department if your symptoms change or worsen. Specifically if you notice loss of sensation, numbness, slurred speech. Please follow with your primary care physician for further outpatient evaluation and management.[facility] Work Phone: Reason for referral (narrative)* Diagnostic Procedure Only (Routine) - Pending Review Specialty Diagnoses / Procedures Referred By Catalino richey Referred To Contact [facility] Diagnoses Encounter for routine gynecologic examination in Medicare patient Encounter for screening mammogram for breast cancer Heterogeneously dense tissue of both breasts on mammography Procedures CHRISTIAN SCREENING W AJIT SCREENING DIGITAL BREAST TOMOSYNTHESIS BI SCREENING MAMMOGRAPHY BI 2-VIEW BREAST INC Mikki Mcnair APRN.ZONING ENGINEER [address] [place] [address] [facility] [address] [place] [address] Referral ID Status Reason Start Date Expiration Date Visits Requested Visits Authorized [id number] Pending Review Auto-Generat ed Referral 12/05/2023 01/03/2025 1 1 [facility] for visit Narrative* Diagnostic Procedure Only (Routine) - Closed Specialty Diagnoses / Procedures Referred By Catalino richey Referred To Contact [facility] Diagnoses Breast cancer screening by mammogram Dense breasts Procedures CHRISTIAN SCREENING W AJIT SCREENING DIGITAL BREAST TOMOSYNTHESIS BI SCREENING MAMMOGRAPHY BI 2-VIEW BREAST INC Romy Moody MD [address] [place] [address] [facility] [address] [place] [address] Referral ID Status Reason Start Date Expiration Date V isits Requested Visits Authorized [id number] Closed Auto-Generate d Referral 11/14/2022 12/14/2023 1 1 [facility] for visit Narrative* Diagnostic Procedure Only (Routine) - Closed Specialty Diagnoses / Procedures Referred By Catalino richey Referred To Contact [facility] Diagnoses Encounter for routine gynecologic examination in Medicare patient Encounter for screening mammogram for breast cancer Heterogeneously dense tissue of both breasts on mammography Procedures CHRISTIAN SCREENING W AJIT SCREENING DIGITAL BREAST TOMOSYNTHESIS BI SCREENING MAMMOGRAPHY BI 2-VIEW BREAST INC Mikki Mcnair APRN.ZONING ENGINEER [address] [place] [address] [facility] [address] [place] [address] Referral ID Status Reason Start Date Expiration Date V isits Requested Visits Authorized [id number] Closed Auto-Generate d Referral 12/05/2023 01/03/2025 1 1 [facility]* Diagnostic Procedure Only (Routine) - Closed Specialty Diagnoses / Procedures Referred By Catalino richey Referred To Contact [facility] Diagnoses Encounter for screening mammogram for breast cancer Procedures CHRISTIAN SCREENING W AJIT SCREENING DIGITAL BREAST TOMOSYNTHESIS BI SCREENING MAMMOGRAPHY BI 2-VIEW BREAST INC Mikki Mcnair APRN.ZONING ENGINEER [address] [place] [address] Phone: tel: fax: [facility] [address] [place] [address] Referral ID Status Reason Start Date Expiration Date V isits Requested Visits Authorized [id number] Closed Auto-Generate d Referral 12/29/2024 01/28/2026 1 1 [facility] Summary Purpose Family History No Family History Records FoundNo Family History Records FoundNo Family History Records FoundNo Family History Records FoundNo Family History Records Found Advance Directives No Advanced Directives Records Found Advance Directive Response Recorded Date/ Time Living Will No February 25, 2023 2 :44pm Power of [employer] No February 25, 2023 2:44pm Latest Code Status on File Code Status Date Activated Date Inactivated Comments Full Code 11/09/2022 5:54 AM 11/09/2022 12:13 PM Health Concerns Infection Onset Date Last Indicated Resolved Time COVID-19 Rule-Out 01/22/2023 01/22/2023 01/23/2023 4:39 AM EDT Chief Complaint and Reason for Visit Chief Complaint FALL Chief Complaint FALL Cerebral palsy, unspecified Reason for Referral Specialty Diagnoses / Procedures Referred By Catalino richey Referred To Contact [facility] Diagnoses Fall, subsequent encounter Abnormal gait Intellectual disability Infantile cerebral palsy (HCC) Procedures CONSULT TO PHYSICAL THERAPY PHYSICAL THERAPY EVALUATION HIGH COMPLEX 45 MINS Marycruz Russell MANAGER OF DISTRIBUTION.ZONING ENGINEER [address] [place] [address] [facility] [place] [address] Referral ID Status Reason Start Date Expiration Date Visits Requested Visits Authorized [id number] Authorized PCP Requested Referral Auto-Generate d Referral 04/09/2023 04/08/[phone] Additional Source Comments INFORMATION SOURCE (unrecogn ized section and content) DATE CREATED AUTHOR 10/13/2018 [facility] [place] DATE CREATED AUTHOR AUTHOR'S ORGANIZ ATION 11/09/2021 [facility] DATE CREATED AUTHOR AUTHOR'S ORGANIZ ATION 11/15/2022 [facility] DATE CREATED AUTHOR AUTHOR'S ORGANIZ ATION 11/18/2023 [facility] DATE CREATED AUTHOR AUTHOR'S ORGANIZ ATION 06/24/2025 [facility] Source Comments (unrecognize d section and content) In the event this informatio n is protected by the Federal Confidentiality of Alcohol and Drug Abuse Patient Records regulations: The Federal rules restrict any use of the information to criminally investigate or prosecute any alcohol or drug abuse patient.[facility] event this information is protected by the Federal Confidentiality of Alcohol and Drug Abuse Patient Records regulations: The Federal rules restrict any use of the information to criminally investigate or prosecute any alcohol or drug abuse patient.[facility] the event this information is protected by the Federal Confidentiality of Alcohol and Drug Abuse Patient Records regulations: The Federal rules restrict any use of the information to criminally investigate or prosecute any alcohol or drug abuse patient.[facility] the event this information is protected by the Federal Confidentiality of Alcohol and Drug Abuse Patient Records regulations: The Federal rules restrict any use of the information to criminally investigate or prosecute any alcohol or drug abuse patient.[facility] the event this information is protected by the Federal Confidentiality of Alcohol and Drug Abuse Patient Records regulations: The Federal rules restrict any use of the information to criminally investigate or prosecute any alcohol or drug abuse patient.[facility] the event this information is protected by the Federal Confidentiality of Alcohol and Drug Abuse Patient Records regulations: The Federal rules restrict any use of the information to criminally investigate or prosecute any alcohol or drug abuse patient.[facility] the event this information is protected by the Federal Confidentiality of Alcohol and Drug Abuse Patient Records regulations: The Federal rules restrict any use of the information to criminally investigate or prosecute any alcohol or drug abuse patient.[facility] the event this information is protected by the Federal Confidentiality of Alcohol and Drug Abuse Patient Records regulations: The Federal rules restrict any use of the information to criminally investigate or prosecute any alcohol or drug abuse patient.[facility] the event this information is protected by the Federal Confidentiality of Alcohol and Drug Abuse Patient Records regulations: The Federal rules restrict any use of the information to criminally investigate or prosecute any alcohol or drug abuse patient.[facility] the event this information is protected by the Federal Confidentiality of Alcohol and Drug Abuse Patient Records regulations: The Federal rules restrict any use of the information to criminally investigate or prosecute any alcohol or drug abuse patient.[facility] the event this information is protected by the Federal Confidentiality of Alcohol and Drug Abuse Patient Records regulations: The Federal rules restrict any use of the information to criminally investigate or prosecute any alcohol or drug abuse patient.[facility] the event this information is protected by the Federal Confidentiality of Alcohol and Drug Abuse Patient Records regulations: The Federal rules restrict any use of the information to criminally investigate or prosecute any alcohol or drug abuse patient.[facility] the event this information is protected by the Federal Confidentiality of Alcohol and Drug Abuse Patient Records regulations: The Federal rules restrict any use of the information to criminally investigate or prosecute any alcohol or drug abuse patient.[facility] the event this information is protected by the Federal Confidentiality of Alcohol and Drug Abuse Patient Records regulations: The Federal rules restrict any use of the information to criminally investigate or prosecute any alcohol or drug abuse patient.[facility] the event this information is protected by the Federal Confidentiality of Alcohol and Drug Abuse Patient Records regulations: The Federal rules restrict any use of the information to criminally investigate or prosecute any alcohol or drug abuse patient.[facility] the event this information is protected by the Federal Confidentiality of Alcohol and Drug Abuse Patient Records regulations: The Federal rules restrict any use of the information to criminally investigate or prosecute any alcohol or drug abuse patient.[facility] the event this information is protected by the Federal Confidentiality of Alcohol and Drug Abuse Patient Records regulations: The Federal rules restrict any use of the information to criminally investigate or prosecute any alcohol or drug abuse patient.[facility] the event this information is protected by the Federal Confidentiality of Alcohol and Drug Abuse Patient Records regulations: The Federal rules restrict any use of the information to criminally investigate or prosecute any alcohol or drug abuse patient.[facility] the event this information is protected by the Federal Confidentiality of Alcohol and Drug Abuse Patient Records regulations: The Federal rules restrict any use of the information to criminally investigate or prosecute any alcohol or drug abuse patient.[facility] the event this information is protected by the Federal Confidentiality of Alcohol and Drug Abuse Patient Records regulations: The Federal rules restrict any use of the information to criminally investigate or prosecute any alcohol or drug abuse patient.[facility] the event this information is protected by the Federal Confidentiality of Alcohol and Drug Abuse Patient Records regulations: The Federal rules restrict any use of the information to criminally investigate or prosecute any alcohol or drug abuse patient.[facility] the event this information is protected by the Federal Confidentiality of Alcohol and Drug Abuse Patient Records regulations: The Federal rules restrict any use of the information to criminally investigate or prosecute any alcohol or drug abuse patient.[facility] the event this information is protected by the Federal Confidentiality of Alcohol and Drug Abuse Patient Records regulations: The Federal rules restrict any use of the information to criminally investigate or prosecute any alcohol or drug abuse patient.[facility] the event this information is protected by the Federal Confidentiality of Alcohol and Drug Abuse Patient Records regulations: The Federal rules restrict any use of the information to criminally investigate or prosecute any alcohol or drug abuse patient.[facility] the event this information is protected by the Federal Confidentiality of Alcohol and Drug Abuse Patient Records regulations: The Federal rules restrict any use of the information to criminally investigate or prosecute any alcohol or drug abuse patient.[facility] the event this information is protected by the Federal Confidentiality of Alcohol and Drug Abuse Patient Records regulations: The Federal rules restrict any use of the information to criminally investigate or prosecute any alcohol or drug abuse patient.[facility] the event this information is protected by the Federal Confidentiality of Alcohol and Drug Abuse Patient Records regulations: The Federal rules restrict any use of the information to criminally investigate or prosecute any alcohol or drug abuse patient.[facility] the event this information is protected by the Federal Confidentiality of Alcohol and Drug Abuse Patient Records regulations: The Federal rules restrict any use of the information to criminally investigate or prosecute any alcohol or drug abuse patient.[facility] the event this information is protected by the Federal Confidentiality of Alcohol and Drug Abuse Patient Records regulations: The Federal rules restrict any use of the information to criminally investigate or prosecute any alcohol or drug abuse patient.[facility] Reason for Visit (unrecogniz ed section and content) Reason Comments Orders Reason Comments Imm/Inj Reason Onset Date Comments Refill Request 08/15/2022 Reason Onset Date Comments Refill Request 11/07/2022 Reason Onset Date Comments Refill Request 12/18/2022 needs new script Reason Comments Results Reason Comments Sinus Problem sinus pressure, drai nage x 2 days Reason Comments Refill Request Reason Comments Appointment Reason Comments Received Outside Medical Records Reason Comments Orders Reason Comments Nystagmus Evaluation Optic Atrophy Evaluation Strabismus Evaluation Reason Comments F/U 6 months Labs prior Reason Comments Well Woman Reason Comments Recheck 6 month follow up Reason Onset Date Comments Refill Request 01/02/2024 Reason Comments Yearly Exam Labs prior Specialty Diagnoses / Procedures Referred By Catalino t Referred To Contact Diagnoses Dental decay Dental decay [K02.9] Procedures [place] UNLISTED PROCEDURE DENTOALVEOLAR STRUCTURES periodontal surgery, restorative dentistry, limited oral surgery Laurie Chavez, BRADYS [address] [place] [address] [facility] [address] [place] [address] Referral ID Status Reason Start Date Expiration Date Visits Re quested Visits Authorized [id number] 1 Reason Onset Date Comments Refill Request 11/02/2024 Reason Comments F/U 6 months Reason Comments Orders Mammo Screen W AJIT Care Teams (unrecognized sec tion and content) Music Therapist Relationship Specialty Start Date End Date Romy Greer MD [address] [place], [place] [address] PCP - General 01/21/01 Music Therapist Relationship Specialty Start Date End Date Romy Greer MD [address] [place], [place] [address] PCP - General 01/21/01 Music Therapist Relationship Specialty Start Date End Date Romy Greer MD [address], [place] [address] PCP - General 01/21/01 Music Therapist Relationship Specialty Start Date End Date oRmy Greer MD [address] [place] [address] PCP - General 01/21/01 Music Therapist Relationship Specialty Start Date End Date Romy Greer MD [address] [place] [address] PCP - General 01/21/01 Music Therapist Relationship Specialty Start Date End Date Romy Greer MD [address] [place] [address] PCP - General 01/21/01 Music Therapist Relationship Specialty Start Date End Date Romy Greer MD [address] [place] [address] PCP - General 01/21/01 Team Status: Active Member Role Status Dates Dr. Romy Greer MD Family Provider Active Dr. Romy Greer MD Primary Care Provider Active Team Status: Inactive Member Role Status Dates Dr. Romy Greer MD Primary Care Provider Active Dr. Ariel Martins DO Emergency Provider Active Music Therapist Relationship Specialty Start Date End Date Romy Greer MD [address] [place] [address] PCP - General 01/21/01 Music Therapist Relationship Specialty Start Date End Date Romy Greer MD [address] [place] [address] PCP - General 01/21/01 Team Status: Inactive Member Role Status Dates Dr. Romy Greer MD Primary Care Provider Active Dr. Ariel Martins DO Attending Provider, Emergency Adrian roa Active Team Status: Inactive Member Role Status Dates Dr. Romy Greer MD Primary Care Provider Active Marycruz Russell EQUIPMENT WORKER, EQUIPMENT WORKER-C Attending Provider, Referring Pr rl Active Music Therapist Relationship Specialty Start Date End Date Romy Greer MD [address] [place] [address] PCP - General 01/21/01 Music Therapist Relationship Specialty Start Date End Date Romy Greer MD [address] [place] [address] PCP - General 01/21/01 Music Therapist Relationship Specialty Start Date End Date Romy Greer MD [address] [place] [address] PCP - General 01/21/01 Music Therapist Relationship Specialty Start Date End Date Romy Greer MD [address] [place] [address] PCP - General 01/21/01 Music Therapist Relationship Specialty Start Date End Date Romy Greer MD [address] [place] [address] PCP - General 01/21/01 Music Therapist Relationship Specialty Start Date End Date Romy Greer MD [address] [place] [address] PCP - General 01/21/01 Music Therapist Relationship Specialty Start Date End Date Romy Greer MD [address] [place] [address] PCP - General 01/21/01 Music Therapist Relationship Specialty Start Date End Date Romy Greer MD [address] [place] [address] PCP - General 01/21/01 Music Therapist Relationship Specialty Start Date End Date Romy Greer MD [address] [place] [address] PCP - General 01/21/01 Music Therapist Relationship Specialty Start Date End Date Romy Greer MD [address] [place] [address] PCP - General 01/21/01 Yoselin Cho, MANAGER OF DISTRIBUTION.LINE REPAIRER TOWER [address] [place] [address] [facility] 09/21/24 Marycruz Russell MANAGER OF DISTRIBUTION.ZONING ENGINEER [address] [place] [address] [facility] 09/21/24 Music Therapist Relationship Specialty Start Date End Date Romy Greer MD [address] [place] [address] PCP - General 01/21/01 Yoselin Cho, MANAGER OF DISTRIBUTION.LINE REPAIRER TOWER [address] [place] [address] [facility] T[facility] Internal Medicine 09/21/24 Marycruz Russell MANAGER OF DISTRIBUTION.ZONING ENGINEER [address] [place] [address] [facility] Internal Medicine 09/21/24 Music Therapist Relationship Specialty Start Date End Date Romy Greer MD [address] [place] [address] PCP - General 01/21/01 Yoselin Cho, MANAGER OF DISTRIBUTION.LINE REPAIRER TOWER [address] [place] [address] [facility] Internal Medicine 09/21/24 Marycruz Russell MANAGER OF DISTRIBUTION.ZONING ENGINEER [address] [place] [address] [facility] Internal Medicine 09/21/24 Music Therapist Relationship Specialty Start Date End Date Romy Greer MD [address] [place] [address] PCP - General 01/21/01 Yoselin Cho, MANAGER OF DISTRIBUTION.LINE REPAIRER TOWER [address] [place] [address] [facility] Internal Medicine 09/21/24 Marycruz Russell MANAGER OF DISTRIBUTION.ZONING ENGINEER [address] [place] [address] [facility] Internal Medicine 01/05/25 Music Therapist Relationship Specialty Start Date End Date Romy Greer MD [address] [place] [address] PCP - General 01/21/01 Yoselin Cho, MANAGER OF DISTRIBUTION.LINE REPAIRER TOWER [address] [place] [address] [facility] Internal Medicine 09/21/24 03/02/25 Marycruz Russell MANAGER OF DISTRIBUTION.ZONING ENGINEER [address] [place] [address] [facility] Internal Medicine 01/05/25 Yoselin Cho, MANAGER OF DISTRIBUTION.LINE REPAIRER TOWER [address] [place] [address] [facility] Medicine 03/03/25 Goals (unrecognized section and content) Goals may be documented in a n alternate sectionGoals may be documented in an alternate section Scheduled Active and Recently Administ ered Medications (unrecognized section and content) Medication Order 11/07/2022 11/08/2022 11/09/2022 ALPRAZolam (Xanax) tablet 0.5 mg 0.5 mg, Oral, 30 Min Pre-Op, Starting on Sat11/09/22 at 0554, For 1 dose, Preprocedure famotidine (Pepcid) injection 20 mg 20 mg, IntraVENous, Administer over 2 Minutes, Once, On Sat11/09/22 at 0600, For 1 dose, Preprocedure 0600 (Not Given - Pr ovider: Ibis Zamora RN - Reason: Other - Comment: pt unable to take pills with water, usually takes it with applesauce) oxymetazoline (Afrin) 0.05 % nasal spray 2 spray (COMPLETED) 2 spray, Each Nostril, Once, On Sat11/09/22 at 0830, For 1 dose, Intraprocedure 0745 (Given - Provid er: Kathia Olson APRN - FAMILY NURSE PRACTITIONER) sodium chloride 0.9 % bolus 500 mL 500 mL, IntraVENous, at 1,000 mL/hr, Administer over 0.5 Hours, Once, On Sat11/09/22 at 0945, For 1 dose, Recovery (only), Indications: Anti-nausea 0945 (Canceled Entry - Provider: Automatic Discharge Provider - Comment: Automatically canceled at discontinue of medication order) sodium chloride 0.9% (NS) flush 3 mL 3 mL, IntraVENous, Every 12 hours scheduled (2 times per day), First dose on Sat11/09/22 at 0900, Preprocedure 0900 (Canceled Entry - Provider: Automatic Discharge Provider - Comment: Automatically canceled at discontinue of medication order) sodium chloride 0.9% (NS) flush 5-40 mL 5-40 mL, IntraVENous, Every 12 hours, First dose on Sat11/09/22 at 0600, Preprocedure, For Line Patency: Peripheral IV = 5 mL; Midline or Central Line = 10 mL/lumen. If following IV push medication, administer flush at same rate as the IV push. Flush volume is determined by type of infusion therapy being given. For non-viscous solutions use: Peripheral IV = 5 mL Midline or Central Line = 10 mL/lumen For viscous solutions (i.e. blood components, parenteral nutrition, contrast media, or after obtaining blood sample) use: Peripheral IV = 10 mL Midline or Central Line = 20 mL/lumen 0600 (Canceled Entry - Provider: Automatic Discharge Provider - Comment: Automatically canceled at discontinue of medication order) Continuous Medication Order 11/07/2022 11/08/2022 11/09/2022 lactated Ringer's (LR) infusion 50 mL/hr, IntraVENous, Continuous, Starting on Sat11/09/22 at 0600, Preprocedure, Upon admission to sameday - please start iv if patient does not have iv access. Use 500ml NS for patients on dialysis. 0738 (New Bag - Prov ider: LAYLA Turcios CRNA)0934 (Stopped - Provider: LAYLA Turcios CRNA) PRN Medication Order 11/07/2022 11/08/2022 11/09/2022 diphenhydrAMINE (BENADryl) injection 12.5 mg 12.5 mg, IntraVENous, Once PRN, itching, Starting on Sat11/09/22 at 0943, For 1 dose, Recovery (only) hydrALAZINE (Apresoline) injection 5 mg(Linked Group 1) 5 mg, IntraVENous, Every 15 min PRN, high blood pressure, for SBP greater than 160 mmHg for 2 consecutive measurements taken from different sites, Starting on Sat11/09/22 at 0943, For 2 doses, Recovery (only), PRN for SBP > 160 for 2 consecutive measurements, and if one of the following conditions is met: 1) If IV labetolol is ineffective. 2) If HR is under 60. 3) If patient has heart block, COPD or asthma. If both labetalol and hydralazine ineffective, notify anesthesia provider. HYDROmorphone (Dilaudid) injection 0.25 mg 0.25 mg, IntraVENous, Every 5 min PRN, moderate pain (4-6), Starting on Sat11/09/22 at 0943, For 4 doses, Recovery (only), For Phase I. If Phase II oral narcotics have been administered in the last 60 minutes, do not administer IV narcotics unless specifically approved by provider. HYDROmorphone (Dilaudid) injection 0.5 mg 0.5 mg, IntraVENous, Every 5 min PRN, severe pain (7-10), Starting on Sat11/09/22 at 0943, For 4 doses, Recovery (only), For Phase I. If Phase II oral narcotics have been administered in the last 60 minutes, do not administer IV narcotics unless specifically approved by provider. labetalol (Normodyne,Trandate) injection 5 mg(Linked Group 1) 5 mg, IntraVENous, Every 10 min PRN, high blood pressure, for SBP greater than 160 mmHg for 2 consecutive measurements taken from different sites., Starting on Sat11/09/22 at 0943, For 2 doses, Recovery (only), PRN for SBP >160 for 2 consecutive measurements, if HR is 60 or greater. If beta audrey is contraindicated (HR less than 60, heart block, COPD or asthma) use hydralazine IV order. lidocaine-EPINEPHrine (Xylocaine W/EPI) 2 %-[id number] injection (CANCELED) As needed, Starting on Sat11/09/22 at 0844, Intraprocedure 0844 (Given - Provid er: Laurie Chavez DDS) LORazepam (Ativan) injection 0.5 mg 0.5 mg, IntraVENous, Once PRN, for anxiety or muscle spasm., Starting on Sat11/09/22 at 0943, For 1 dose, Recovery (only), For IV doses dilute dose with 1ml NS. meperidine (Demerol) injection 12.5 mg 12.5 mg, IntraVENous, Every 5 min PRN, shivering, Starting on Sat11/09/22 at 0943, For 2 doses, Recovery (only), May give every 5 minutes to max of 25mg. Notify Anesthesia Provider before administration. ondansetron (Zofran) injection 4 mg 4 mg, IntraVENous, Once PRN, nausea, Starting on Sat11/09/22 at 0943, For 1 dose, Recovery (only), Initial antiemetic therapy. oxyCODONE (Roxicodone) immediate release tablet 10 mg(Linked Group 2) 10 mg, Oral, PRN, severe pain (7-10), Starting on Sat11/09/22 at 0943, For 1 dose, Recovery (only), PHASE II oxyCODONE (Roxicodone) immediate release tablet 5 mg(Linked Group 2) 5 mg, Oral, PRN, moderate pain (4-6), Starting on Sat11/09/22 at 0943, For 1 dose, Recovery (only), PHASE II sodium chloride 0.9 % infusion 5-250 mL/hr, IntraVENous, PRN, if patient receiving piggyback infusions and maintenance fluids are not ordered OR KVO fluids to protect IV site / prevent frequent line interruptions/ long duration, Starting on Sat11/09/22 at 0554, Preprocedure, For piggyback infusion, administer at same rate as piggyback for a total of 25 mL. Enter 25 mL into dose field and piggyback rate into rate field of order. If piggyback is infusing at a rate less than 100 mL/hr, enter 25 mL into dose field and 100 mL/hr into rate field of order. For KVO fluids, enter rate of 20 mL/hr or less into rate field of order. sodium chloride 0.9 % infusion 5-250 mL/hr, IntraVENous, PRN, if patient receiving piggyback infusions and maintenance fluids are not ordered OR KVO fluids to protect IV site / prevent frequent line interruptions / long duration, Starting on Sat11/09/22 at 0554, Preprocedure, For piggyback infusion, administer at same rate as piggyback for a total of 25 mL. Enter 25 mL into dose field and piggyback rate into rate field of order. If piggyback is infusing at a rate less than 100 mL/hr, enter 25 mL into dose field and 100 mL/hr into rate field of order. For KVO fluids, enter rate of 20 mL/hr or less into rate field of order. sodium chloride 0.9 % irrigation solution (CANCELED) As needed, Starting on Sat11/09/22 at 0756, Intraprocedure 0756 (Given - Provid er: Laurie Chavez DDS) sodium chloride 0.9% (NS) flush 3 mL 3 mL, IntraVENous, PRN, line care, Starting on Sat11/09/22 at 0554, Preprocedure, After every IV line use sodium chloride 0.9% (NS) flush 5-40 mL 5-40 mL, IntraVENous, PRN, line care, After every IV line use, Starting on Sat11/09/22 at 0554, Preprocedure, For Line Patency: Peripheral IV = 5 mL; Midline or Central Line = 10 mL/lumen. If following IV push medication, administer flush at same rate as the IV push. Flush volume is determined by type of infusion therapy being given. For non-viscous solutions use: Peripheral IV = 5 mL Midline or Central Line = 10 mL/lumen For viscous solutions (i.e. blood components, parenteral nutrition, contrast media, or after obtaining blood sample) use: Peripheral IV = 10 mL Midline or Central Line = 20 mL/lumen Linked Groups Order Group 1: labetalol (Normodyne,Trandate) injection 5 mgJump to med 5 mg, IntraVENous, Every 10 min PRN, high blood pressure, for SBP greater than 160 mmHg for 2 consecutive measurements taken from different sites., Starting on Sat11/09/22 at 0943, For 2 doses, Recovery (only)
PRN for SBP >160 for 2 consecutive measurements, if HR is 60 or greater. If beta audrey is contraindicated (HR less than 60, heart block, COPD or asthma) use hydralazine IV order.
Or hydrALAZINE (Apresoline) injection 5 mgJump to med 5 mg, IntraVENous, Every 15 min PRN, high blood pressure, for SBP greater than 160 mmHg for 2 consecutive measurements taken from different sites, Starting on Sat11/09/22 at 0943, For 2 doses, Recovery (only)
PRN for SBP > 160 for 2 consecutive measurements, and if one of the following conditions is met: 1) If IV labetolol is ineffective. 2) If HR is under 60. 3) If patient has heart block, COPD or asthma. If both labetalol and hydralazine ineffective, notify anesthesia provider.
Group 2: oxyCODONE (Roxicodone) immediate release tablet 5 mgJump to med 5 mg, Oral, PRN, moderate pain (4-6), Starting on Sat11/09/22 at 0943, For 1 dose, Recovery (only)
PHASE II
Or oxyCODONE (Roxicodone) immediate release tablet 10 mgJump to med 10 mg, Oral, PRN, severe pain (7-10), Starting on Sat11/09/22 at 0943, For 1 dose, Recovery (only)
PHASE II
FOR RECORDS PERTAINING TO PATIENTS WHO ARE OR HAVE BEEN ENROLLED IN A CHEMICAL DEPENDENCY/SUBSTANCEABUSE PROGRAM, SOME INFORMATION MAY BE OMITTED. This clinical summary was aggregated from multiple sources. Caution should be exercised in using it in the provision of clinical care. This summary normalizes information from multiple sources, and as a consequence, information in this document may materially change the coding, format and clinical context of patient data. In addition, data may be omitted in some cases. CLINICAL DECISIONS SHOULD BE BASED ON THE PRIMARY CLINICAL RECORDS. [employer] provides no warranty or guarantee of the accuracy or completeness of information in this document.
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
[2025-07-18 20:28] VITALS: PULSE 98; RESP 18; O2SAT 96
[2025-07-18 22:40] VITALS: BP 110/66; PULSE 98; RESP 18; TEMP 36.4; O2SAT 96
== END 2025-07-18 22:41 | disposition home or self-care (01) ==
PROVIDERS: Emergency Provider Surgery; PCP Internal Medicine; Visit Provider Surgery
DX: S00.31XA Abrasion of nose, initial encounter (principal); G80.9 Cerebral palsy, unspecified; S20.20XA Contusion of thorax, unspecified, initial encounter; V89.2XXA Person injured in unspecified motor-vehicle accident, traffic, initial encounter
CPT/HCPCS: 70450; 70486; 71045; 72125; 99284